=== PATIENT | female | born 1935 | race Caucasian/White ===

== ENCOUNTER 2019-03-27 21:40 | Emergency (ER) | payer MEDICARE, OTHER ==
[2019-03-27 22:07] VITALS: RESP 18; TEMP 97.1
[2019-03-27 22:34] LABS: Glucose,Whole Blood 165 mg/dL (75-99)
[2019-03-27 22:48] LABS: Calcium 9.7 mg/dL (8.4-10.2)
[2019-03-27 22:49] LABS: Albumin 4.2 g/dL (3.5-5.0); Total Bilirubin 0.7 mg/dL (0.2-1.3); Total Protein 7.3 g/dL (6.3-8.2)
[2019-03-27 23:34] LABS: Potassium 3.7 mmol/L (3.5-5.1)
[2019-03-27 23:39] LABS: Appearance,Urine Cloudy (Clear); Bacteria,Urine Few /hpf; Bilirubin,Urine Negative (Negative); Blood,Urine Moderate (Negative); Color,Urine Yellow; Glucose,Urine (UA) Negative (Negative); Hyaline Casts,Urine 4 /lpf (0-2); Ketones,Urine Negative (Negative); Leukocyte Esterase,Urine Large (Negative); Mucus,Urine Rare /hpf; Nitrite,Urine Negative (Negative); PH, Urine 6.5 (5.0-8.0); Protein,Urine Negative (Negative); RBC,Urine 25 /hpf (0-5); Specific Gravity,Urine 1.012 (1.001-1.035); Squamous Epithelial Cell,Urine 6 /hpf (0-4); Urobilinogen,Urine <2.0 mg/dL (<2.0)
[2019-03-27 23:45] LABS: Basophils % (A) 1 %; Eosinophils # (A) 0.3 k/uL (0-0.7); Eosinophils % (A) 4 %; HCT 35.2 % (34.0-46.0); HGB 12.2 gm/dL (11.4-16.0); Lymphocytes # (A) 1.3 k/uL (1.0-4.8); Lymphocytes % (A) 17 %; MCH 31.4 pg (25.0-35.0); MCHC 34.6 g/dL (31.0-37.0); MCV 90.8 fL (80.0-100.0); Monocytes # (A) 0.5 k/uL (0-1.0); Monocytes % (A) 6 %; Neutrophils # (A) 5.3 k/uL (1.3-7.7); Neutrophils % (A) 70 %; Platelet Count 211 k/uL (150-450); RBC 3.88 m/uL (3.80-5.40); RDW 13.2 % (11.5-15.5); WBC 7.6 k/uL (3.8-10.6)
[2019-03-27] MEDS ORDERED: cefTRIAXone IN SWFI 1,000 MG/10 ML SYRINGE IVP STA (23:56)
[2019-03-27] MEDS ORDERED: SODIUM CHLORIDE 0.9% 1,000 ML IV ONE (23:56)
[2019-03-28 00:08] VITALS: BP 103/61; PULSE 82
--- NOTE | 2019-03-28 00:13 | ED ---
General Adult HPI - General Chief complaint: Recheck/Abnormal Lab/Rx Stated complaint: Abn labs Time Seen by Provider: 03/27/19 22:20 Source: patient, EMS Mode of arrival: EMS Limitations: no limitations - History of Present Illness Initial comments: Tanja is a pleasant 83-year-old female is brought to the emergency department today for evaluation of possible overdose. Per the daughter the patient's medications come in blister packs per day today. They melissa on the calendar daily whether the patient has taken her medications. Patient has been home alone for the past 2 days and daughter believe she got confused and inadvertently looked at the February calendar which showed mid to darty been taken rather than March and "popping pills out of the package. Patient does not recall whether or not she took these pills. Patient denies any complaints. Daughter states she is not usually confused but does get confused occasionally which has a urinary infection. - Related Data Home Medications Medication Instructions Recorded Confirmed Atorvastatin [Lipitor] 40 mg PO DAILY 03/27/19 03/27/19 Furosemide [Lasix] 60 mg PO DAILY 03/27/19 03/27/19 Hydrochlorothiazide 12.5 mg PO DAILY 03/27/19 03/27/19 Losartan [Cozaar] 50 mg PO DAILY 03/27/19 03/27/19 Metoprolol Tartrate [Lopressor] 25 mg PO DAILY 03/27/19 03/27/19 Pioglitazone [Actos] 15 mg PO DAILY 03/27/19 03/27/19 Potassium Chloride ER [K-Dur 10] 10 meq PO Q48H 03/27/19 03/27/19 Previous Rx's Medication Instructions Recorded Nitrofurantoin Monohyd/M-Cryst 100 mg PO Q12HR #6 cap 03/28/19 [Macrobid] Allergies Allergy/AdvReac Type Severity Reaction Status Date / Time pseudoephedrine Allergy Rash/Hives Verified 03/28/19 00:10 [From Actifed] triprolidine [From Actifed] Allergy Rash/Hives Verified 03/28/19 00:10 codeine AdvReac Nausea & Verified 03/28/19 00:10 Vomiting propoxyphene [From Darvon] AdvReac Nausea & Verified 03/28/19 00:10 Vomiting Review of Systems ROS Statement: Those systems with pertinent positive or pertinent negative responses have been documented in the HPI. ROS Other: All systems not noted in ROS Statement are negative. Past Medical History Past Medical History: Diabetes Mellitus, Hearing Disorder / Deafness, Hyperlipidemia, Hypertension Additional Past Medical History / Comment(s): cataracts lense. hearing loss. bronchitis. History of Any Multi-Drug Resistant Organisms: None Reported Past Surgical History: No Surgical Hx Reported Past Psychological History: No Psychological Hx Reported Smoking Status: Never smoker Past Alcohol Use History: None Reported Past Drug Use History: None Reported General Exam - General Exam Comments Initial Comments: Physical Exam GENERAL: Patient is well-developed and well-nourished. Patient is nontoxic and well-hydrated and is in no distress. HENT: Normocephalic, Atraumatic. EYES: PERRL, EOMI PULMONARY: Unlabored respirations. No audible rales rhonchi or wheezing was noted. CARDIOVASCULAR: There is a regular rate and rhythm without any murmurs gallops or rubs. ABDOMEN: Soft and nontender with normal bowel sounds. SKIN: Skin is clear with no lesions or rashes and otherwise unremarkable. : Deferred NEUROLOGIC: Patient is alert and oriented x3. Moving all extremities spontaneously MUSCULOSKELETAL: Normal extremities with adequate strength and full range of motion. No lower extremity swelling or edema. No calf tenderness. PSYCHIATRIC: Normal psychiatric evaluation. Limitations: no limitations Course Vital Signs 03/27/19 03/28/19 21:44 00:07 Temperature 97.1 F L Pulse Rate 89 82 Respiratory 18 18 Rate Blood Pressure 135/53 103/61 O2 Sat by Pulse 98 98 Oximetry Medical Decision Making - Medical Decision Making She was seen and evaluated, patient's medications were reviewed, patient is on potassium as well as diuretics labs and urinalysis were obtained As with kidney function it's mildly increased BUN is also increases is likely related to dehydration patient's creatinine has been at this level before. She will be given 1 L IV fluid potassium is within normal limits Urinalysis confirms a urinary tract infection which is likely cause of patient's confusion, Rocephin was ordered here patient will be discharged home on Macrobid I did offer to admit the patient to the hospital for further evaluation as she has confusion and a urinary tract infection however patient is eager to go home and family is comfortable with this plan - Lab Data Result diagrams: 03/27/19 22:22 03/27/19 22:22 Lab Results 03/27/19 03/27/19 03/27/19 Range/Units 22:22 22:22 22:32 WBC 7.6 (3.8-10.6) k/uL RBC 3.88 (3.80-5.40) m/uL Hgb 12.2 (11.4-16.0) gm/dL Hct 35.2 (34.0-46.0) % MCV 90.8 (80.0-100.0) fL MCH 31.4 (25.0-35.0) pg MCHC 34.6 (31.0-37.0) g/dL RDW 13.2 (11.5-15.5) % Plt Count 211 (150-450) k/uL Neutrophils % 70 % Lymphocytes % 17 % Monocytes % 6 % Eosinophils % 4 % Basophils % 1 % Neutrophils # 5.3 (1.3-7.7) k/uL Lymphocytes # 1.3 (1.0-4.8) k/uL Monocytes # 0.5 (0-1.0) k/uL Eosinophils # 0.3 (0-0.7) k/uL Basophils # 0.0 (0-0.2) k/uL Sodium 141 (137-145) mmol/L Potassium 3.7 (3.5-5.1) mmol/L Chloride 98 (98-107) mmol/L Carbon Dioxide 35 H (22-30) mmol/L Anion Gap 8 mmol/L BUN 56 H (7-17) mg/dL Creatinine 1.40 H (0.52-1.04) mg/dL Est GFR (CKD-EPI)AfAm 40 (>60 ml/min/1.73 sqM) Est GFR (CKD-EPI)NonAf 35 (>60 ml/min/1.73 sqM) Glucose 173 H (74-99) mg/dL POC Glucose (mg/dL) 165 H (75-99) mg/dL POC Glu Program Coordinator [employer] Sonia Novoa Calcium 9.7 (8.4-10.2) mg/dL Total Bilirubin 0.7 (0.2-1.3) mg/dL AST 28 (14-36) U/L ALT 15 (9-52) U/L Alkaline Phosphatase 171 H (38-126) U/L Total Protein 7.3 (6.3-8.2) g/dL Albumin 4.2 (3.5-5.0) g/dL Urine Color Urine Appearance (Clear) Urine pH (5.0-8.0) Ur Specific [place] (1.001-1.035) Urine Protein (Negative) Urine Glucose (UA) (Negative) Urine Ketones (Negative) Urine Blood (Negative) Urine Nitrite (Negative) Urine Bilirubin (Negative) Urine Urobilinogen (<2.0) mg/dL Ur Leukocyte Esterase (Negative) Urine RBC (0-5) /hpf Urine WBC (0-5) /hpf Urine WBC Clumps (None) /hpf Ur Squamous Epith Cells (0-4) /hpf Urine Bacteria (None) /hpf Hyaline Casts (0-2) /lpf Urine Mucus (None) /hpf 03/27/19 Range/Units 23:00 WBC (3.8-10.6) k/uL RBC (3.80-5.40) m/uL Hgb (11.4-16.0) gm/dL Hct (34.0-46.0) % MCV (80.0-100.0) fL MCH (25.0-35.0) pg MCHC (31.0-37.0) g/dL RDW (11.5-15.5) % Plt Count (150-450) k/uL Neutrophils % % Lymphocytes % % Monocytes % % Eosinophils % % Basophils % % Neutrophils # (1.3-7.7) k/uL Lymphocytes # (1.0-4.8) k/uL Monocytes # (0-1.0) k/uL Eosinophils # (0-0.7) k/uL Basophils # (0-0.2) k/uL Sodium (137-145) mmol/L Potassium (3.5-5.1) mmol/L Chloride (98-107) mmol/L Carbon Dioxide (22-30) mmol/L Anion Gap mmol/L BUN (7-17) mg/dL Creatinine (0.52-1.04) mg/dL Est GFR (CKD-EPI)AfAm (>60 ml/min/1.73 sqM) Est GFR (CKD-EPI)NonAf (>60 ml/min/1.73 sqM) Glucose (74-99) mg/dL POC Glucose (mg/dL) (75-99) mg/dL POC Glu Program Coordinator [employer] ID Calcium (8.4-10.2) mg/dL Total Bilirubin (0.2-1.3) mg/dL AST (14-36) U/L ALT (9-52) U/L Alkaline Phosphatase (38-126) U/L Total Protein (6.3-8.2) g/dL Albumin (3.5-5.0) g/dL Urine Color Yellow Urine Appearance Cloudy H (Clear) Urine pH 6.5 (5.0-8.0) Ur Specific [place] 1.012 (1.001-1.035) Urine Protein Negative (Negative) Urine Glucose (UA) Negative (Negative) Urine Ketones Negative (Negative) Urine Blood Moderate H (Negative) Urine Nitrite Negative (Negative) Urine Bilirubin Negative (Negative) Urine Urobilinogen <2.0 (<2.0) mg/dL Ur Leukocyte Esterase Large H (Negative) Urine RBC 25 H (0-5) /hpf Urine WBC 169 H (0-5) /hpf Urine WBC Clumps Rare H (None) /hpf Ur Squamous Epith Cells 6 H (0-4) /hpf Urine Bacteria Few H (None) /hpf Hyaline Casts 4 H (0-2) /lpf Urine Mucus Rare H (None) /hpf Disposition Clinical Impression: UTI (urinary tract infection), Confusion, Accidental drug ingestion Disposition: HOME SELF-CARE Condition: Stable Prescriptions: Nitrofurantoin Monohyd/M-Cryst [Macrobid] 100 mg PO Q12HR #6 cap Is patient prescribed a controlled substance at d/c from ED?: No Referrals: Nonstaff,Physician [Primary Care Provider] - 1-2 days
== END 2019-03-28 01:43 | disposition home or self-care (01) ==
LOC: SUPCPDRO 21:40 → EC 21:40
DX: T50.901A Poisoning by unspecified drugs, medicaments and biological substances, accidental (unintentional), initial encounter (principal); N39.0 Urinary tract infection, site not specified; R41.0 Disorientation, unspecified; E11.9 Type 2 diabetes mellitus without complications; E78.5 Hyperlipidemia, unspecified; I10 Essential (primary) hypertension; Z79.84 Long term (current) use of oral hypoglycemic drugs; Z79.899 Other long term (current) drug therapy; Z88.8 Allergy status to other drugs, medicaments and biological substances; Z88.5 Allergy status to narcotic agent
CPT/HCPCS: 36415; 80053; 85025; 81001; 87086; 87077; 87186; 99283; 96374; 96361; J0696

== ENCOUNTER 2019-11-08 18:25 | Inpatient (IN) | payer MEDICARE ==
[2019-11-08] MEDS ORDERED: SODIUM CHLORIDE 0.9% 1,000 ML IV STA ×3 (19:00→21:50)
--- NOTE | 2019-11-08 19:07 | ED ---
General Adult HPI - General Chief complaint: Altered Mental Status Stated complaint: UTI Time Seen by Provider: 11/08/19 18:28 Source: patient, family, EMS, RN notes reviewed Mode of arrival: EMS Limitations: altered mental status, physical limitation - History of Present Illness Initial comments: Patient is a pleasant 83-year-old female presenting to the emergency Department with complaints of family concern for urinary tract infection. Patient states she feels fine and has no complaints. Daughter states she is worried about urinary tract infection as she has had several recently. Patient was tested within the past week and was reported as no infection. Patient has been more fatigued lately and decreased oral intake. There has been a little bit of confusion were patient was given a command, agree to it and then did not follow command. No fevers. Patient does admit to having some lower abdominal discomfort. Patient last bowel movement was today. - Related Data Home Medications Medication Instructions Recorded Confirmed Atorvastatin [Lipitor] 40 mg PO DAILY 03/27/19 11/08/19 Furosemide [Lasix] 60 mg PO DAILY 03/27/19 11/08/19 Hydrochlorothiazide 12.5 mg PO DAILY 03/27/19 11/08/19 Losartan [Cozaar] 50 mg PO DAILY 03/27/19 11/08/19 Metoprolol Tartrate [Lopressor] 25 mg PO DAILY 03/27/19 11/08/19 Pioglitazone [Actos] 15 mg PO DAILY 03/27/19 11/08/19 Potassium Chloride ER [K-Dur 10] 10 meq PO Q48H 03/27/19 11/08/19 Cholecalciferol [Vitamin D3 (25 1,000 unit PO DAILY 11/08/19 11/08/19 Mcg = 1000 Iu)] Cyanocobalamin (Vitamin B-12) 5,000 mcg PO DAILY 11/08/19 11/08/19 [Vitamin B-12] Hydrocortisone Cream 1 applic TOPICAL DAILY PRN 11/08/19 11/08/19 [Hydrocortisone 2.5% Cream] Allergies Allergy/AdvReac Type Severity Reaction Status Date / Time pseudoephedrine Allergy Rash/Hives Verified 11/08/19 19:40 [From Actifed] triprolidine [From Actifed] Allergy Rash/Hives Verified 11/08/19 19:40 codeine AdvReac Nausea & Verified 11/08/19 19:40 Vomiting propoxyphene [From Darvon] AdvReac Nausea & Verified 11/08/19 19:40 Vomiting Review of Systems ROS Statement: Those systems with pertinent positive or pertinent negative responses have been documented in the HPI. ROS Other: All systems not noted in ROS Statement are negative. Constitutional: Denies: fever Eyes: Denies: eye pain ENT: Denies: ear pain Respiratory: Denies: cough Cardiovascular: Denies: chest pain Endocrine: Reports: fatigue Gastrointestinal: Reports: abdominal pain. Denies: vomiting Genitourinary: Denies: dysuria Musculoskeletal: Denies: back pain Skin: Denies: rash Neurological: Reports: as per HPI. Denies: headache, weakness Past Medical History Past Medical History: Diabetes Mellitus, Hearing Disorder / Deafness, Hyperlipidemia, Hypertension Additional Past Medical History / Comment(s): cataracts lense. hearing loss. bronchitis. History of Any Multi-Drug Resistant Organisms: None Reported Past Surgical History: No Surgical Hx Reported Past Psychological History: No Psychological Hx Reported Smoking Status: Never smoker Past Alcohol Use History: None Reported Past Drug Use History: None Reported General Exam Limitations: altered mental status, physical limitation General appearance: alert, in no apparent distress Head exam: Present: normocephalic Eye exam: Present: normal appearance, PERRL ENT exam: Present: normal oropharynx Neck exam: Present: normal inspection Respiratory exam: Present: normal lung sounds bilaterally Cardiovascular Exam: Present: regular rate, irregular rhythm GI/Abdominal exam: Present: soft, tenderness (Mild to moderate tenderness lower abdomen), normal bowel sounds. Absent: distended, guarding, rebound, rigid, pulsatile mass Extremities exam: Present: normal inspection. Absent: pedal edema, calf tenderness Neurological exam: Present: alert. Absent: motor sensory deficit Expanded Neurological exam: Present: protecting the airway Patient oriented to: Present: person, place. Absent: time Speech: Present: fluid speech Motor strength exam: RUE: 5, LUE: 5, RLE: 5, LLE: 5 Eye Response: (4) open spontaneously Motor Response: (6) obeys commands Verbal Response: (4) confused conversation Psychiatric exam: Present: normal affect, normal mood Skin exam: Present: normal color Course Vital Signs 11/08/19 11/08/19 11/08/19 18:48 18:59 20:30 Temperature 99.4 F Pulse Rate 96 100 93 Respiratory 20 93 H 16 Rate Blood Pressure 136/50 111/74 111/48 O2 Sat by Pulse 96 95 93 L Oximetry EKG Findings - EKG Comments: EKG Findings:: A. fib with rate of 98. QRS 110. QT 294. QTC 375. Left axis. Normal QRS. No acute ST change. Medical Decision Making - Medical Decision Making Patient reevaluated and resting comfortably in bed. Patient has no tenderness right upper quadrant. Patient and family updated on results. No history of atrial fibrillation. Case was discussed in detail with Dr. britt, who will admit covering for Dr. Brown. Consults will be placed for cardiology and pulmonary. Ultrasound will be ordered. - Lab Data Result diagrams: 11/08/19 20:21 11/08/19 20:21 Lab Results 11/08/19 11/08/19 11/08/19 Range/Units 19:40 20:21 20:21 WBC 15.7 H (3.8-10.6) k/uL RBC 3.50 L (3.80-5.40) m/uL Hgb 10.7 L (11.4-16.0) gm/dL Hct 31.2 L (34.0-46.0) % MCV 89.1 (80.0-100.0) fL MCH 30.5 (25.0-35.0) pg MCHC 34.2 (31.0-37.0) g/dL RDW 14.7 (11.5-15.5) % Plt Count 187 (150-450) k/uL Neutrophils % 91 % Lymphocytes % 3 % Monocytes % 5 % Eosinophils % 0 % Basophils % 0 % Neutrophils # 14.3 H (1.3-7.7) k/uL Lymphocytes # 0.4 L (1.0-4.8) k/uL Monocytes # 0.8 (0-1.0) k/uL Eosinophils # 0.0 (0-0.7) k/uL Basophils # 0.0 (0-0.2) k/uL PT 10.2 (9.0-12.0) sec INR 1.0 (<1.2) APTT 24.3 (22.0-30.0) sec Sodium (137-145) mmol/L Potassium (3.5-5.1) mmol/L Chloride (98-107) mmol/L Carbon Dioxide (22-30) mmol/L Anion Gap mmol/L BUN (7-17) mg/dL Creatinine (0.52-1.04) mg/dL Est GFR (CKD-EPI)AfAm (>60 ml/min/1.73 sqM) Est GFR (CKD-EPI)NonAf (>60 ml/min/1.73 sqM) Glucose (74-99) mg/dL Calcium (8.4-10.2) mg/dL Total Bilirubin (0.2-1.3) mg/dL AST (14-36) U/L ALT (4-34) U/L Alkaline Phosphatase (38-126) U/L Total Protein (6.3-8.2) g/dL Albumin (3.5-5.0) g/dL Urine Color Yellow Urine Appearance Clear (Clear) Urine pH 5.0 (5.0-8.0) Ur Specific [place] 1.010 (1.001-1.035) Urine Protein Trace H (Negative) Urine Glucose (UA) Negative (Negative) Urine Ketones Negative (Negative) Urine Blood Negative (Negative) Urine Nitrite Negative (Negative) Urine Bilirubin Negative (Negative) Urine Urobilinogen <2.0 (<2.0) mg/dL Ur Leukocyte Esterase Negative (Negative) 11/08/19 Range/Units 20:21 WBC (3.8-10.6) k/uL RBC (3.80-5.40) m/uL Hgb (11.4-16.0) gm/dL Hct (34.0-46.0) % MCV (80.0-100.0) fL MCH (25.0-35.0) pg MCHC (31.0-37.0) g/dL RDW (11.5-15.5) % Plt Count (150-450) k/uL Neutrophils % % Lymphocytes % % Monocytes % % Eosinophils % % Basophils % % Neutrophils # (1.3-7.7) k/uL Lymphocytes # (1.0-4.8) k/uL Monocytes # (0-1.0) k/uL Eosinophils # (0-0.7) k/uL Basophils # (0-0.2) k/uL PT (9.0-12.0) sec INR (<1.2) APTT (22.0-30.0) sec Sodium 135 L (137-145) mmol/L Potassium 2.5 L* (3.5-5.1) mmol/L Chloride 93 L (98-107) mmol/L Carbon Dioxide 31 H (22-30) mmol/L Anion Gap 11 mmol/L BUN 75 H (7-17) mg/dL Creatinine 1.59 H (0.52-1.04) mg/dL Est GFR (CKD-EPI)AfAm 34 (>60 ml/min/1.73 sqM) Est GFR (CKD-EPI)NonAf 30 (>60 ml/min/1.73 sqM) Glucose 192 H (74-99) mg/dL Calcium 8.4 (8.4-10.2) mg/dL Total Bilirubin 1.4 H (0.2-1.3) mg/dL AST 82 H (14-36) U/L ALT 28 (4-34) U/L Alkaline Phosphatase 113 (38-126) U/L Total Protein 6.2 L (6.3-8.2) g/dL Albumin 3.2 L (3.5-5.0) g/dL Urine Color Urine Appearance (Clear) Urine pH (5.0-8.0) Ur Specific [place] (1.001-1.035) Urine Protein (Negative) Urine Glucose (UA) (Negative) Urine Ketones (Negative) Urine Blood (Negative) Urine Nitrite (Negative) Urine Bilirubin (Negative) Urine Urobilinogen (<2.0) mg/dL Ur Leukocyte Esterase (Negative) - Radiology Data Radiology results: report reviewed (Computed tomography scan of the brain shows atrophy. Old lacunar infarct. Computed tomography scan of the abdomen pelvis shows cholelithiasis with possible emphysematous cholecystitis. Some appearance of air in the uterine cavity. Patchy densities lung bases which is nonspecific.), image reviewed (Chest x-ray shows cardiomegaly and increased lung markings that could represent CHF or atypical pneumonia.) Disposition Clinical Impression: Dehydration, Hypokalemia, Atrial fibrillation Disposition: ADMITTED IP TO THIS [facility] Condition: Serious Is patient prescribed a controlled substance at d/c from ED?: No Referrals: Michelle Del Rio MD [Primary Care Provider] - 1-2 days Decision Time: 21:47
[2019-11-08 19:43] LABS: Appearance,Urine Clear (Clear); Bilirubin,Urine Negative (Negative); Blood,Urine Negative (Negative); Color,Urine Yellow; Glucose,Urine (UA) Negative (Negative); Ketones,Urine Negative (Negative); Leukocyte Esterase,Urine Negative (Negative); Nitrite,Urine Negative (Negative); Protein,Urine Trace (Negative); Urobilinogen,Urine <2.0 mg/dL (<2.0)
[2019-11-08 20:30] LABS: Basophils % (A) 0 %; Eosinophils % (A) 0 %; HCT 31.2 % (34.0-46.0); HGB 10.7 gm/dL (11.4-16.0); Lymphocytes # (A) 0.4 k/uL (1.0-4.8); Lymphocytes % (A) 3 %; MCH 30.5 pg (25.0-35.0); MCHC 34.2 g/dL (31.0-37.0); MCV 89.1 fL (80.0-100.0); Mean Platelet Volume 7.5; Monocytes # (A) 0.8 k/uL (0-1.0); Monocytes % (A) 5 %; Neutrophils # (A) 14.3 k/uL (1.3-7.7); Neutrophils % (A) 91 %; Platelet Count 187 k/uL (150-450); RDW 14.7 % (11.5-15.5); WBC 15.7 k/uL (3.8-10.6)
[2019-11-08 20:37] LABS: Partial Thromboplastin Time 24.3 sec (22.0-30.0); Prothrombin Time 10.2 sec (9.0-12.0)
[2019-11-08 20:42] LABS: Albumin 3.2 g/dL (3.5-5.0); Calcium 8.4 mg/dL (8.4-10.2); Total Bilirubin 1.4 mg/dL (0.2-1.3); Total Protein 6.2 g/dL (6.3-8.2)
[2019-11-08 20:43] LABS: Potassium 2.5 mmol/L (3.5-5.1)
[2019-11-08] MEDS ORDERED: POTASSIUM CHLORIDE 2 MEQ/ML 20 ML VIAL IVPB STA (20:46)
[2019-11-08] MEDS ORDERED: POTASSIUM CHLORIDE ER 20 MEQ TAB.ER PO STA (20:46)
--- NOTE | 2019-11-08 20:47 | XR ---
EXAMINATION TYPE: XR chest 2V DATE OF EXAM: 11/08/2019 COMPARISON: None INDICATION: Altered mental status TECHNIQUE: Frontal and lateral views of the chest are obtained. FINDINGS: The heart size is enlarged. The pulmonary vasculature is indistinct. There is diffuse increase infiltrate present bilaterally. This is nonspecific. Consider atypical pneu monia. IMPRESSION: 1. Diffuse increased lung markings. Consider atypical pneumonia. Atypical pulmonary edema could also be considered. 2. Cardiomegaly with prominent pulmonary vascular markings. Consider CHF.
[2019-11-08] MEDS ORDERED: POTASSIUM CHLORIDE 20 MEQ in WATER FOR INJECTION 1 100ML.BAG IVPB STA (20:48)
--- NOTE | 2019-11-08 21:23 | CT ---
EXAMINATION TYPE: CT brain wo con DATE OF EXAM: 11/08/2019 COMPARISON: None INDICATION: ams DLP: 1188.4 mGycm, Automated exposure control for dose reduction was used. CONTRAST: None CT of the brain is performed utilizing 3 mm thick sections through the posterior fossa and 3 mm thick sections through the remaining calvarium. Study is performed within 24 hours of arrival to the hosp ital. No abnormal hyperdensity is present to suggest an acute intracranial hemorrhage. No mass lesion is evident. No acute infarcts are evident. Patchy periventricular white matter hypodensity is present, likely on the basis of chronic white matter ischemic change. Subtle subcortical changes are within the parietal lobes. An old lacunar infarct is present in the left basal ganglion. Ventricles and sulci are common and for the patient age. Paranasal sinuses and mastoid air cells within the [id number] are clear. IMPRESSIONS: 1. Atrophy with periventricular white matter ischemic changes. 2. Old lacunar infarct left basal ganglion.
--- NOTE | 2019-11-08 21:32 | CT ---
EXAMINATION TYPE: CT abdomen pelvis wo con DATE OF EXAM: 11/08/2019 COMPARISON: None INDICATION: UTI DLP: 1518.4 mGycm, Automated exposure control for dose reduction was used. CONTRAST: 0 mL of Isovue 300. Study performed without Oral Contrast TECHNIQUE: Axial images were obtained from above the diaphragm to the pubic rami in the axial plane a t 5 mm thick sections. Reconstructed images are reviewed on the computer in the coronal plane. FINDINGS: Limited CT sections are obtained the lung bases. Patchy densities are within the lung bases. Cardiom egaly is present.. CT ABDOMEN: Liver: Normal Spleen: Normal Pancreas: Atrophic Adrenal glands: The adrenal glands are normal. Gallbladder: Gallstones are present. Some air within the gallbladder appears to be present. Kidneys: No masses are evident. No hydronephrosis is present. No cysts are present. Aorta: Vascular calcification is within the aorta. Inferior vena cava: Normal. CT PELVIS: Loops of bowel within the abdomen and pelvis are normal. Scattered diverticuli are within the col on. Appendix: Normal as visualized. Urinary bladder: Normal. Genitourinary structures: Appears to be air within the uterine cavity. Osseous structures: No suspicious lytic or sclerotic lesions. IMPRESSIONS: 1. Clinical consideration for emphysematous cholecystitis is recommended. Cholelithiasis is present. 2. Air appears to be within the uterine cavity. Correlate for recent instrumentation. 3. Patchy densities at the lung bases which are nonspecific. Infectious etiologies and solid areas co uld be considered.
[2019-11-08] MEDS: POTASSIUM CHLORIDE 10 MEQ in WATER FOR INJECTION 1 100ML.BAG IVPB SCH ×2 (21:38→23:12)
[2019-11-08] MEDS ORDERED: NALOXONE 0.4 MG/ML 1 ML VIAL IV PRN (21:52)
[2019-11-08] MEDS ORDERED: AZITHROMYCIN 500 MG in SODIUM CHLORIDE 0.9% 250 ML IVPB STA (21:58)
[2019-11-08] MEDS ORDERED: PNEUMONIA PROTOCOL UTILIZED 1 EACH MISC PO PRN (21:58)
--- NOTE | 2019-11-08 22:53 | US ---
EXAMINATION TYPE: US gallbladder DATE OF EXAM: 11/08/2019 COMPARISON: NONE CLINICAL HISTORY: Evaluate for infection or air in the gallbladder. Abdominal pain, abnormal GB on re cent CT exam EXAM MEASUREMENTS: Liver Length: 14.9 cm Gallbladder Wall: 0.3 cm CBD: 0.4 cm Right Kidney: 10.9 x 4.3 x 5.1 cm Technical limitations, patient uncooperative and large amount of overlying bowel content Pancreas: Tail obscured by overlying bowel gas Liver: appears wnl as visualized Gallbladder: 2 stones near neck, large amount of shadowing noted anterior wall ?? air vs other etiol ogy Evidence for sonographic Suazo's sign: yes CBD: appears wnl as visualized Right Kidney: no evidence of hydronephrosis possible free fluid noted adjacent to liver IMPRESSION: There is extensive shadowing in the gallbladder related to air in the gallbladder wall. This is evide nt on the CT scan today. There are gallstones at the gallbladder neck. Small amount of free fluid adj acent to the liver unchanged compared to CT scan today. Gangrenous gallbladder is possible.
[2019-11-08] MEDS ORDERED: LEVOFLOXACIN 750MG-D5W PMX 750 MG in DEXTROSE/WATER 1 150ML.BAG IVPB STA (23:22)
[2019-11-08 23:30] LABS: C Reactive Protein 394.8 mg/L (<10.0)
--- NOTE | 2019-11-09 00:25 | P.HPIM ---
History of Present Illness H&P Date: 11/08/19 The patient is an 83-year-old female with a PMH of type II DM, hypertension, and hyperlipidemia who was brought into the ED by her daughter due to not feeling well over the past few days. The patient was a very poor historian and thereby history obtained from the daughter at the bedside. The daughter (POA) reports that over the past 4-5 days, the patient has been increasingly weak, confused, and has had a poor appetite. The patient also endorsed a suprapubic and right upper quadrant abdominal pain, unable to quantify, nonradiating, and unable to state any alleviating or exacerbating features. The daughter further endorsed a cough productive of whitish phlegm. The patient denied experiencing chest pain, shortness of breath, nausea, vomiting, diarrhea, or headaches. The patient lives by herself though is often visited by her daughter who brings her food and takes care of her house. The patient underwent an extensive evaluation in the emergency room with CT abdomen and pelvis showing concerns for cholecystitis with patchy densities in the lung bases. Brain CT revealed a atrophy with periventricular white matter ischemic changes with no acute changes noted. Chest x-ray revealed diffuse increased lung markings suspicious for atypical pneumonia along with cardiomegaly and prominent pulmonary vascular markings suspicious for CHF. Gallbladder ultrasound revealed extensive air in the gallbladder wall with the possibility of gangrenous gallbladder. EKG revealed A. fib at 98 bpm with no acute ST/T-wave changes noted. Laboratory evaluation revealed a WBC count of 15.7, hemoglobin 10.7, d-dimer 3.99, sodium 135, potassium 2.5, CO2 31, BUN 75, creatinine 1.59, lactic acid 1.3, with C-reactive protein 394. Review of Systems Pertinent positives and negatives as discussed in HPI, a complete review of systems was performed and all other systems are negative. Past Medical History Past Medical History: Diabetes Mellitus, Hearing Disorder / Deafness, Hyperlipidemia, Hypertension Additional Past Medical History / Comment(s): cataracts lense. hearing loss. bronchitis. History of Any Multi-Drug Resistant Organisms: None Reported Past Surgical History: No Surgical Hx Reported Past Psychological History: No Psychological Hx Reported Smoking Status: Never smoker Past Alcohol Use History: None Reported Past Drug Use History: None Reported Medications and Allergies Home Medications Medication Instructions Recorded Confirmed Type Atorvastatin [Lipitor] 40 mg PO DAILY 03/27/19 11/08/19 History Furosemide [Lasix] 60 mg PO DAILY 03/27/19 11/08/19 History Hydrochlorothiazide 12.5 mg PO DAILY 03/27/19 11/08/19 History Losartan [Cozaar] 50 mg PO DAILY 03/27/19 11/08/19 History Metoprolol Tartrate [Lopressor] 25 mg PO DAILY 03/27/19 11/08/19 History Pioglitazone [Actos] 15 mg PO DAILY 03/27/19 11/08/19 History Potassium Chloride ER [K-Dur 10] 10 meq PO Q48H 03/27/19 11/08/19 History Cholecalciferol [Vitamin D3 (25 1,000 unit PO DAILY 11/08/19 11/08/19 History Mcg = 1000 Iu)] Cyanocobalamin (Vitamin B-12) 5,000 mcg PO DAILY 11/08/19 11/08/19 History [Vitamin B-12] Hydrocortisone Cream 1 applic TOPICAL DAILY PRN 11/08/19 11/08/19 History [Hydrocortisone 2.5% Cream] Allergies Allergy/AdvReac Type Severity Reaction Status Date / Time pseudoephedrine Allergy Rash/Hives Verified 11/08/19 19:40 [From Actifed] triprolidine [From Actifed] Allergy Rash/Hives Verified 11/08/19 19:40 codeine AdvReac Nausea & Verified 11/08/19 19:40 Vomiting propoxyphene [From Darvon] AdvReac Nausea & Verified 11/08/19 19:40 Vomiting Physical Exam Vitals: Vital Signs Temp Pulse Resp BP Pulse Ox 11/08/19 23:08 96 16 101/53 92 L 11/08/19 21:00 81 16 118/52 92 L 11/08/19 20:30 93 16 111/48 93 L 11/08/19 18:59 100 93 H 111/74 95 11/08/19 18:48 99.4 F 96 20 136/50 96 Intake and Output 11/08/19 11/08/19 11/09/19 14:59 22:59 06:59 Output Total 500 Balance -500 Output: Urine 500 Straight 500 Other: Weight 103.419 kg General: Elderly F, no distress, appears at stated age, obese Derm: no unusual rashes/lesions no unusual ecchymoses, warm, dry Head: atraumatic, normocephalic, symmetric Eyes: EOMI, no lid lag, anicteric sclera, pupils equal round reactive to light ENT: Nose and ears atraumatic, no thrush, no pharyngeal erythema Neck: No thyromegaly, no cervical lymphadenopathy, trachea midline, supple Mouth: no lip lesion, mucus membranes dry Cardiovascular: Irregularly irregular, no murmur, positive posterior tibial pulse bilateral, no edema, capillary refill less than 2 seconds Lungs: Mild bilateral coarse breath sounds with bibasilar rales Abdominal: soft, diffuse tenderness worse at RUQ and suprapubic region with guarding, no appreciable organomegaly Ext: no gross muscle atrophy, muscle strength 4 out of 5 in all 4 extremities grossly, no contractures Neuro: CN II-XII intact, no focal neuro deficits Psych: Alert, oriented to person and place, not oriented to time Results CBC & Chem 7: 11/08/19 20:21 11/08/19 20:21 Labs: Abnormal Lab Results - Last 24 Hours (Table) 11/08/19 11/08/19 11/08/19 Range/Units 19:40 20:21 20:21 WBC 15.7 H (3.8-10.6) k/uL RBC 3.50 L (3.80-5.40) m/uL Hgb 10.7 L (11.4-16.0) gm/dL Hct 31.2 L (34.0-46.0) % Neutrophils # 14.3 H (1.3-7.7) k/uL Lymphocytes # 0.4 L (1.0-4.8) k/uL D-Dimer (<0.60) mg/L FEU Sodium 135 L (137-145) mmol/L Potassium 2.5 L* (3.5-5.1) mmol/L Chloride 93 L (98-107) mmol/L Carbon Dioxide 31 H (22-30) mmol/L BUN 75 H (7-17) mg/dL Creatinine 1.59 H (0.52-1.04) mg/dL Glucose 192 H (74-99) mg/dL Total Bilirubin 1.4 H (0.2-1.3) mg/dL AST 82 H (14-36) U/L Lactate Dehydrogenase (313-618) U/L Total Protein 6.2 L (6.3-8.2) g/dL Albumin 3.2 L (3.5-5.0) g/dL Urine Protein Trace H (Negative) 11/08/19 11/08/19 Range/Units 20:21 20:21 WBC (3.8-10.6) k/uL RBC (3.80-5.40) m/uL Hgb (11.4-16.0) gm/dL Hct (34.0-46.0) % Neutrophils # (1.3-7.7) k/uL Lymphocytes # (1.0-4.8) k/uL D-Dimer 3.99 H (<0.60) mg/L FEU Sodium (137-145) mmol/L Potassium (3.5-5.1) mmol/L Chloride (98-107) mmol/L Carbon Dioxide (22-30) mmol/L BUN (7-17) mg/dL Creatinine (0.52-1.04) mg/dL Glucose (74-99) mg/dL Total Bilirubin (0.2-1.3) mg/dL AST (14-36) U/L Lactate Dehydrogenase 747 H (313-618) U/L Total Protein (6.3-8.2) g/dL Albumin (3.5-5.0) g/dL Urine Protein (Negative) Assessment and Plan Plan: RUQ abdominal pain w/ suspected cholecystitis -C/w Metronidazole and Levaquin for now -Consult Surgery -NPO for now -Pain control -Follow up blood cultures Abnormal CXR with cough, elevated CRP and D-Dimer -Inflammatory markers possibly elevated due to suspected cholecystitis -Patient's daughter refused Covid testing at this time despite several conversations with ED physician and securities underwriter -C/w droplet isolation at this time -Pulm consulted -Follow-up pro-calcitonin -Continue with Levaquin for now Newly diagnosed A. fib -Order echocardiogram -Cardiology consult -Cardiac monitoring -Hold off on AC at this time Altered mental status, likely metabolic encephalopathy in setting of active infection -Continue with above management including antibiotics ISAAC on CKD, prerenal -Continue with IV hydration for now -Monitor BMP Hypokalemia -Replace and monitor Type 2 DM -SHEREE with FS Chronic conditions: HTN, HLD -Hold home HCTZ and Losartan due to ISAAC. C/w Lopressor DVT prophylaxis -Heparin subq The patient is admitted with an anticipated greater than 2 midnight stay for evaluation of abdominal pain CODE STATUS: Full Code Discussed with: Patient, daughter Anticipated discharge date: 3-[address]: Home A total of 45 minutes was spent on the care of this complex patient more than 50% of the time was spent in counseling and care coordination.
[2019-11-09] MEDS ORDERED: POTASSIUM CHLORIDE ER 20 MEQ TAB.ER PO STA (00:28)
[2019-11-09] MEDS: metroNIDAZOLE-NS PMX 500 MG in SALINE 1 100ML.BAG IVPB SCH ×4 (01:56→16:47)
[2019-11-09 02:17] LABS: Ferritin 244.5 ng/mL (10.0-291.0)
[2019-11-09 04:10] LABS: Basophils % (A) 0 %; Eosinophils # (A) 0.1 k/uL (0-0.7); Eosinophils % (A) 1 %; HCT 29.3 % (34.0-46.0); HGB 9.7 gm/dL (11.4-16.0); Lymphocytes # (A) 0.5 k/uL (1.0-4.8); Lymphocytes % (A) 4 %; MCH 29.4 pg (25.0-35.0); MCHC 33.3 g/dL (31.0-37.0); MCV 88.4 fL (80.0-100.0); Mean Platelet Volume 7.6; Monocytes # (A) 1.1 k/uL (0-1.0); Monocytes % (A) 8 %; Neutrophils # (A) 12.3 k/uL (1.3-7.7); Neutrophils % (A) 87 %; Platelet Count 190 k/uL (150-450); RBC 3.31 m/uL (3.80-5.40); RDW 14.5 % (11.5-15.5); WBC 14.2 k/uL (3.8-10.6)
[2019-11-09 04:19] LABS: Albumin 2.9 g/dL (3.5-5.0); Calcium 8.2 mg/dL (8.4-10.2); Magnesium 1.9 mg/dL (1.6-2.3); Potassium 2.8 mmol/L (3.5-5.1); Total Bilirubin 1.1 mg/dL (0.2-1.3); Total Protein 5.7 g/dL (6.3-8.2)
[2019-11-09] MEDS ORDERED: Potassium Replacement Protocol 1 EACH MISC MISCELLANE PRN (05:35)
[2019-11-09] MEDS ORDERED: MORPHINE SULFATE 2 MG/ML SYRINGE IVP STA (05:38)
[2019-11-09] MEDS: POTASSIUM CHLORIDE ER 20 MEQ TAB.ER PO SCH ×4 (05:45→16:48)
[2019-11-09 06:41] LABS: Glucose,Whole Blood 150 mg/dL (75-99)
[2019-11-09] MEDS: INSULIN ASPART (NovoLOG) 100 UNIT/ML VIAL SQ SCH ×3 (07:00→16:48)
--- NOTE | 2019-11-09 08:18 | XR ---
EXAMINATION TYPE: XR chest 1V DATE OF EXAM: 11/09/2019 COMPARISON: 11/08/2019 INDICATION: Pneumonia TECHNIQUE: Single frontal view of the chest is obtained. FINDINGS: The heart size is moderately prominent. The pulmonary vasculature is normal. Minimal infiltrate is along the bases. Previous vascular prominence and infiltrates have significantl y improved. Catheter on the right has its tip near the midline IMPRESSION: 1. Moderate cardiomegaly. 2. Resolving volume overload or CHF. Continued follow-up is recommended.
[2019-11-09] MEDS ORDERED: DILTIAZEM DRIP BOLUS FROM BAG 1 MG SOLN IV ONE (10:20)
[2019-11-09] MEDS ORDERED: FUROSEMIDE 10 MG/ML 4 ML VIAL IV STA (10:21)
[2019-11-09] MEDS: PANTOPRAZOLE 40 MG/10 ML VIAL IV SCH (10:24)
[2019-11-09 10:27] LABS: Glucose,Whole Blood 168 mg/dL (75-99)
[2019-11-09] MEDS: ATORVASTATIN 40 MG TAB PO SCH (10:28)
[2019-11-09] MEDS: METOPROLOL TARTRATE 25 MG TAB PO SCH (10:28)
[2019-11-09] MEDS ORDERED: DILTIAZEM 125 MG in SODIUM CHLORIDE 0.9% 100 ML IV SCH (10:30)
--- NOTE | 2019-11-09 12:27 | CONS ---
CONSULTATION CHIEF COMPLAINT: Fatigue, tiredness, not feeling well and confusion. Tanja is an 83-year-old lady with history of hypertension, [id number] diabetes and dyslipidemia who presented to hospital with symptoms of not feeling well, fatigued, tired, generalized body ache, and on her presentation was found to be in atrial fibrillation with rapid ventricular rate. She has persistent atrial fibrillation. She underwent CT scan of the abdomen and pelvis which also revealed gangrenous gallbladder. Her white cell count is elevated at 15. She had severe hypokalemia that is currently being supplemented and also has renal insufficiency with a creatinine of 1.5 on admission, which is getting better. Patient also has had shortness of breath and leg edema for the last several weeks and a chest x-ray shows pulmonary congestion. Patient has multiple and complex medical problems including acute onset congestive heart failure of unclear LV function, new onset atrial fibrillation and gangrenous cholecystitis. The patient will undergo cholecystectomy and then we will address the issues of atrial fibrillation. She needs to be anticoagulated, needs to undergo an echocardiogram to assess LV function and we will treat her with IV heparin when okay with the surgeon. She also has congestive heart failure for which I am going to give IV Lasix. Her BNP is elevated at 4700. PAST MEDICAL HISTORY: Significant for hypertension, diabetes, dyslipidemia. MEDICATIONS: Include K-Dur 10 mEq every 48 hours, Cozaar, hydrochlorothiazide, Actos, Lopressor, Lasix, Lipitor. Patient is allergic to ACTIFED, CODEINE, and DARVON. FAMILY HISTORY: Negative for premature coronary artery disease. SOCIAL HISTORY: Negative for smoking, EtOH abuse, or drug abuse. REVIEW OF SYSTEMS: HEENT: Unremarkable. CARDIAC: As described above. RESPIRATORY: As described above. GI: As described above. GENITOURINARY: Negative. ALLERGY/IMMUNOLOGY: Negative. SKIN: Negative. MUSCULOSKELETAL: Significant for arthritis. PSYCHOSOCIAL: Negative. ENDOCRINE: Negative. CONSTITUTIONAL: Significant for not feeling well, confusion, fatigue. On exam, heart rate is 110 beats per minute. Blood pressure is 146/50, respiratory rate is 18. Chest exam reveals occasional crackles bilaterally. Heart exam reveals first and second heart sounds. Systolic murmur at the apex. Regular rhythm. Abdomen is soft. Exam of extremities reveals bilateral pitting edema. LABS: Show that the BNP is elevated. Potassium is low. BUN is 5, creatinine is 1.3. White cell count is elevated. Hemoglobin is low. Platelet count is low. ASSESSMENT: 1. Acute gangrenous cholecystitis. 2. Persistent atrial fibrillation with new onset poorly controlled ventricular rate. 3. Acute onset congestive heart failure. 4. Acute onset renal failure. PLAN: I will treat the patient with intravenous Cardizem for rate control, IV Lasix for heart failure. Obtain a 2D echo. She is at high risk for perioperative cardiac events. Both she and her daughter understand this. You can proceed with the cholecystectomy and we will deal with the consequence as they come. Will obtain LV function and will optimize therapies once the cholecystectomy is done. Patient needs to be anticoagulated, but this will wait until the cholecystectomy. MMODL / IJN: [id number] /
--- NOTE | 2019-11-09 12:42 | P.CNPUL ---
History of Present Illness Consult date: 11/09/19 Requesting physician: Antonino Guadarrama Reason for consult: other Chief complaint: Acute abdominal pain History of present illness: 83-year-old white female patient with past medical history of mild intermittent bronchial asthma, history of nonspecific pulmonary nodules for which she follows with Dr. Ambrocio in the pulmonary clinic, and there were monitored for a long period of time since July 2015, have not shown significant change in size and patient had been asymptomatic and the nodules were nonspecific. Medical history includes benign essential hypertension, hyperlipidemia, and diabetes mellitus. Patient was brought into the emergency department by her daughter on 11/08/2019 in an ambulance for evaluation of mental status, concern for urinary tract infection, not feeling well, weak, fatigued and decreased oral intake. Denied any fevers, patient is having abdominal discomfort and tenderness in the right upper quadrant and lower abdominal discomfort. Her last bowel movement was the day before presentation. CT of the abdomen and pelvis without contrast showed patchy densities within the lung bases, cardiomegaly, gallstones present in the gallbladder with some air within the gallbladder, consideration for emphysematous cholecystitis. EKG showed atrial fibrillation with mildly elevated ventricular rate for which patient was started on Cardizem drip. Ultrasound of the gallbladder showed extensive shadowing in the gallbladder, gallstones in the gallbladder neck, and small amount of free fluid adjacent to the liver, with possibility of a gangrenous gallbladder. Patient is being kept nothing by mouth, surgical consultation was requested and patient is being considered for laparoscopic cholecystectomy today. No cough or congestion, no fever or chills, room air pulse ox 97%, hemodynamically she is stable. Her labs showed white blood cell count of 15.7, hemoglobin is 10.7, d-dimer is 3.9, sodium is 135, potassium is 2.5, chloride is 93, CO2 31, BUN is 75, creatinine is 1.59, plasma lactic acid is 1.3, total bilirubin is 1.4, ferritin is 244, AST is 82, ALT is 28, alk phos is 113, LDH is 747, CRP is 394, proBNP is 4700, broke acetone is elevated at 1.27 and patient has been started on empiric antibiotics, in the form of Levaquin, and Flagyl, patient was given IV fluid bolus, and IV hydration overnight, and on today's labs her renal profile is slightly improved, however she still hypokalemic, which is being replaced per protocol. Urinalysis was negative for any sign of infection. She was started on IV Lasix by cardiology, for elevated proBNP and today's chest x-ray showing vascular prominence, evidence of fluid volume overload. Review of Systems All systems: negative Constitutional: Reports fatigue, Reports malaise, Reports weakness, Denies chills, Denies fever Eyes: denies blurred vision, denies pain Ears, nose, mouth and throat: Denies headache, Denies sore throat Cardiovascular: Denies chest pain, Denies shortness of breath Respiratory: Denies cough Gastrointestinal: Reports abdominal pain, Reports loss of appetite, Denies diarrhea, Denies nausea, Denies vomiting Genitourinary: Denies dysuria, Denies hematuria Musculoskeletal: Denies myalgias Integumentary: Denies pruritus, Denies rash Neurological: Denies numbness, Denies weakness Psychiatric: Denies anxiety, Denies depression Endocrine: Denies fatigue, Denies weight change Past Medical History Past Medical History: Diabetes Mellitus, Hearing Disorder / Deafness, Hyperlipidemia, Hypertension Additional Past Medical History / Comment(s): cataracts lense. hearing loss. bronchitis. History of Any Multi-Drug Resistant Organisms: None Reported Past Surgical History: No Surgical Hx Reported Past Psychological History: No Psychological Hx Reported Smoking Status: Never smoker Past Alcohol Use History: None Reported Past Drug Use History: None Reported Medications and Allergies Home Medications Medication Instructions Recorded Confirmed Type Atorvastatin [Lipitor] 40 mg PO DAILY 03/27/19 11/08/19 History Furosemide [Lasix] 60 mg PO DAILY 03/27/19 11/08/19 History Hydrochlorothiazide 12.5 mg PO DAILY 03/27/19 11/08/19 History Losartan [Cozaar] 50 mg PO DAILY 03/27/19 11/08/19 History Metoprolol Tartrate [Lopressor] 25 mg PO DAILY 03/27/19 11/08/19 History Pioglitazone [Actos] 15 mg PO DAILY 03/27/19 11/08/19 History Potassium Chloride ER [K-Dur 10] 10 meq PO Q48H 03/27/19 11/08/19 History Cholecalciferol [Vitamin D3 (25 1,000 unit PO DAILY 11/08/19 11/08/19 History Mcg = 1000 Iu)] Cyanocobalamin (Vitamin B-12) 5,000 mcg PO DAILY 11/08/19 11/08/19 History [Vitamin B-12] Hydrocortisone Cream 1 applic TOPICAL DAILY PRN 11/08/19 11/08/19 History [Hydrocortisone 2.5% Cream] Allergies Allergy/AdvReac Type Severity Reaction Status Date / Time pseudoephedrine Allergy Rash/Hives Verified 11/08/19 19:40 [From Actifed] triprolidine [From Actifed] Allergy Rash/Hives Verified 11/08/19 19:40 codeine AdvReac Nausea & Verified 11/08/19 19:40 Vomiting propoxyphene [From Darvon] AdvReac Nausea & Verified 11/08/19 19:40 Vomiting Physical Exam Vitals: Vital Signs Temp Pulse Pulse Resp BP BP Pulse Ox 11/09/19 11:26 88 114/58 94 L 11/09/19 09:37 115 H 126/51 96 11/09/19 04:00 97.9 F 98 17 114/53 96 11/09/19 00:00 98.9 F 96 18 107/59 96 11/08/19 23:32 90 16 99/45 97 11/08/19 23:08 96 16 101/53 92 L 11/08/19 21:00 81 16 118/52 92 L 11/08/19 20:30 93 16 111/48 93 L 11/08/19 18:59 100 93 H 111/74 95 11/08/19 18:48 99.4 F 96 20 136/50 96 Intake and Output 11/08/19 11/09/19 11/09/19 22:59 06:59 14:59 Intake Total 1100 Output Total 501 Balance 599 Intake: Intake, IV Titration 1100 Amount Sodium Chloride 0.9% 1, 1000 000 ml @ 999 mls/hr IV . Q1H1M STA Rx#:[id number] cefTRIAXone 1 gm In 100 Sodium Chloride 0.9% 50 ml @ 100 mls/hr IVPB Q24H [facility] Rx#:[id number] Output: Urine 500 Straight 500 Stool 1 Other: # Voids 1 Weight 103.419 kg GENERAL EXAM: Alert, very pleasant, 83-year-old white female, on room air, with a pulse ox of 97%, seen in the emergency department resting on the gurney, oriented 3, does not appear to be in any acute distress, however physical exam and abdominal palpation does elicit significant right upper quadrant tenderness HEAD: Normocephalic/atraumatic. EYES: Normal reaction of pupils, equal size. Conjunctiva pink, sclera white. NOSE: Clear with pink turbinates. THROAT: No erythema or exudates. NECK: No masses, no JVD, no thyroid enlargement, no adenopathy. CHEST: No chest wall deformity. Symmetrical expansion. LUNGS: Equal air entry with no crackles, wheeze, rhonchi or dullness. CVS: Irregular rate and rhythm, normal S1 and S2, no gallops, no murmurs, no rubs ABDOMEN: Soft, abdominal tenderness in the right upper quadrant. No hepatosplenomegaly, normal bowel sounds, no guarding or rigidity. EXTREMITIES: No clubbing, no edema, no cyanosis, 2+ pulses and upper and lower extremities. MUSCULOSKELETAL: Muscle strength and tone normal. SPINE: No scoliosis or deformity SKIN: No rashes CENTRAL NERVOUS SYSTEM: Alert and oriented -3. No focal deficits, tone is normal in all 4 extremities. PSYCHIATRIC: Alert and oriented -3. Appropriate affect. Intact judgment and insight. Results - Laboratory Findings CBC and BMP: 11/09/19 03:58 11/09/19 03:58 PT/INR, D-dimer PT 10.2 sec (9.0-12.0) 11/08/19 20:21 INR 1.0 (<1.2) 11/08/19 20:21 D-Dimer 3.99 mg/L FEU (<0.60) H 11/08/19 20:21 Abnormal lab findings: Abnormal Labs 11/08/19 11/08/19 11/08/19 19:40 20:21 20:21 WBC 15.7 H RBC 3.50 L Hgb 10.7 L Hct 31.2 L Neutrophils # 14.3 H Lymphocytes # 0.4 L Monocytes # D-Dimer Sodium 135 L Potassium 2.5 L* Chloride 93 L Carbon Dioxide 31 H BUN 75 H Creatinine 1.59 H Glucose 192 H POC Glucose (mg/dL) Calcium Total Bilirubin 1.4 H AST 82 H Lactate Dehydrogenase C-Reactive Protein Total Protein 6.2 L Albumin 3.2 L Procalcitonin Urine Protein Trace H 11/08/19 11/08/19 11/08/19 20:21 20:21 20:21 WBC RBC Hgb Hct Neutrophils # Lymphocytes # Monocytes # D-Dimer 3.99 H Sodium Potassium Chloride Carbon Dioxide BUN Creatinine Glucose POC Glucose (mg/dL) Calcium Total Bilirubin AST Lactate Dehydrogenase 747 H C-Reactive Protein 394.8 H Total Protein Albumin Procalcitonin 1.27 H Urine Protein 11/09/19 11/09/19 11/09/19 03:58 03:58 06:39 WBC 14.2 H RBC 3.31 L Hgb 9.7 L Hct 29.3 L Neutrophils # 12.3 H Lymphocytes # 0.5 L Monocytes # 1.1 H D-Dimer Sodium Potassium 2.8 L Chloride 96 L Carbon Dioxide 33 H BUN 74 H Creatinine 1.39 H Glucose 129 H POC Glucose (mg/dL) 150 H Calcium 8.2 L Total Bilirubin AST 73 H Lactate Dehydrogenase C-Reactive Protein Total Protein 5.7 L Albumin 2.9 L Procalcitonin Urine Protein 11/09/19 10:14 WBC RBC Hgb Hct Neutrophils # Lymphocytes # Monocytes # D-Dimer Sodium Potassium Chloride Carbon Dioxide BUN Creatinine Glucose POC Glucose (mg/dL) 168 H Calcium Total Bilirubin AST Lactate Dehydrogenase C-Reactive Protein Total Protein Albumin Procalcitonin Urine Protein - Diagnostic Findings Chest x-ray: report reviewed, image reviewed CT scan - chest: report reviewed Additional studies: CT of the abdomen and pelvis, and brain CT, and gallbladder ultrasound results have been reviewed Assessment and Plan Plan: Assessment: #1. Acute abdominal pain, related to possibility of gangrenous cholecystitis, ultrasound of the abdomen revealed gallstones at the gallbladder neck, air in the gallbladder wall. Awaiting laparoscopic cholecystectomy this afternoon #2. Weakness, fatigue, dehydration related to the above #3. Acute kidney injury related to ATN, slightly improved with IV hydration #4. Hypokalemia, serum potassium is being replaced per protocol, likely related to dehydration, poor oral intake and diuretics #5. New onset atrial fibrillation with RVR #6. Vascular prominence and infiltrates seen on the chest x-ray, possibility of acute exacerbation of CHF with unknown EF #7. History of mild intermittent bronchial asthma, stable #8. History of multiple nonspecific pulmonary nodules have been under surveillance since July [address] Ambrocio, have not shown this can increase the patient has been asymptomatic #9. Hypertension #10. Hyperlipidemia #11. Diabetes mellitus type II #12. History of difficulty hearing Plan: Chest x-ray has been reviewed showing stability of vascular congestion, CHF, fluid volume overload patient has been started on IV Lasix, cardiology is following. Remains in A. fib, rate is better controlled, denies any worsening dyspnea, her asthma is stable at this time, she is on room air, she's been started on antibiotics, surgical services evaluated the patient and patient is scheduled for laparoscopic cholecystectomy this afternoon. Her daughter is refusing her mother to be tested for COVID 19, stating she does not think her mother is infected, and stating she has a right to do that due to her constitutional rights. We'll continue to follow with the patient in the postoperative period. I performed a history & physical examination of the patient and discussed their management with my nurse practitioner, Saumya Juan. I reviewed the nurse practitioner's note and agree with the documented findings and plan of care. Lung sounds are positive for diminished breath sounds. The findings and the impression was discussed with the patient. I attest to the documentation by the nurse practitioner. Time with Patient: Greater than 30
--- NOTE | 2019-11-09 12:46 | P.GSCN ---
History of Present Illness Consult date: 11/09/19 Reason for Consult: Evaluate for gangrenous gallbladder Requesting physician: Cosme Echavarria History of present illness: CHIEF COMPLAINT: Gangrenous gallbladder HISTORY OF PRESENT ILLNESS: 83-year-old female who presented to the emergency room with her daughter with a chief complaint of a possible urinary tract infection. Patient underwent a computed tomography scan revealing a possible gangrenous gallbladder. Hence general surgery was consulted for further evaluation. The patient was found to have new onset atrial fibrillation. She has been started on a Cardizem drip. Patient also started on IV Lasix every 12 hours. PAST MEDICAL HISTORY: See list. PAST SURGICAL HISTORY: See list. SOCIAL HISTORY: No illicit drug use. REVIEW OF SYSTEMS: CONSTITUTIONAL: Denies fever or chills. HEENT: Denies blurred vision, vision changes, or eye pain. Denies hemoptysis CARDIOVASCULAR: Denies chest pain or pressure. RESPIRATORY: No shortness of breath. GASTROINTESTINAL: Refer to HPI for pertinent findings HEMATOLOGIC: Denies bleeding disorders. GENITOURINARY: Denies any blood in urine. SKIN: Denies pruitis. Denies rash. PHYSICAL EXAM: VITAL SIGNS: Reviewed. GENERAL: Well-developed in no acute distress. HEENT: No sclera icterus. Extraocular movements grossly intact. Moist buccal mucosa. Head is atraumatic, normocephalic. ABDOMEN: Soft. Nondistended. Right upper quadrant tenderness with palpation. NEUROLOGIC: Alert and oriented x 2. LABORATORY DATA: WBC 14.2. Hemoglobin 9.7. Platelet count 190. Sodium 140. Potassium 2.8. BUN 74. Creatinine 1.39. Bilirubin 1.1. AST 73. ALT 26. IMAGING: CT abdomen and pelvis: Gallstones are present. Some air within the gallbladder. Possible emphysematous cholecystitis. Gallbladder ultrasound: Extensive shadowing in the gallbladder related to air in the gallbladder wall. This is evident on CAT scan. There is also gallstones at the gallbladder neck. Small amount of free fluid adjacent to the liver. Gangrenous gallbladder is possible. ASSESSMENT: 1. Possible gangrenous gallbladder PLAN: Continue IV antibiotics Patient to undergo lap jada, possible open today with Dr. Chin Nurse practitioner note has been reviewed by physician. Signing provider agrees with the documented findings, assessment, and plan of care. Past Medical History Past Medical History: Diabetes Mellitus, Hearing Disorder / Deafness, Hyperlipidemia, Hypertension Additional Past Medical History / Comment(s): cataracts lense. hearing loss. bronchitis. History of Any Multi-Drug Resistant Organisms: None Reported Past Surgical History: No Surgical Hx Reported Past Psychological History: No Psychological Hx Reported Smoking Status: Never smoker Past Alcohol Use History: None Reported Past Drug Use History: None Reported Medications and Allergies Home Medications Medication Instructions Recorded Confirmed Type Atorvastatin [Lipitor] 40 mg PO DAILY 03/27/19 11/08/19 History Furosemide [Lasix] 60 mg PO DAILY 03/27/19 11/08/19 History Hydrochlorothiazide 12.5 mg PO DAILY 03/27/19 11/08/19 History Losartan [Cozaar] 50 mg PO DAILY 03/27/19 11/08/19 History Metoprolol Tartrate [Lopressor] 25 mg PO DAILY 03/27/19 11/08/19 History Pioglitazone [Actos] 15 mg PO DAILY 03/27/19 11/08/19 History Potassium Chloride ER [K-Dur 10] 10 meq PO Q48H 03/27/19 11/08/19 History Cholecalciferol [Vitamin D3 (25 1,000 unit PO DAILY 11/08/19 11/08/19 History Mcg = 1000 Iu)] Cyanocobalamin (Vitamin B-12) 5,000 mcg PO DAILY 11/08/19 11/08/19 History [Vitamin B-12] Hydrocortisone Cream 1 applic TOPICAL DAILY PRN 11/08/19 11/08/19 History [Hydrocortisone 2.5% Cream] Allergies Allergy/AdvReac Type Severity Reaction Status Date / Time pseudoephedrine Allergy Rash/Hives Verified 11/08/19 19:40 [From Actifed] triprolidine [From Actifed] Allergy Rash/Hives Verified 11/08/19 19:40 codeine AdvReac Nausea & Verified 11/08/19 19:40 Vomiting propoxyphene [From Darvon] AdvReac Nausea & Verified 11/08/19 19:40 Vomiting Surgical - Exam Vital Signs Temp Pulse Resp BP Pulse Ox 99.4 F 96 20 136/50 96 11/08/19 18:48 11/08/19 18:48 11/08/19 18:48 11/08/19 18:48 11/08/19 18:48 Results - Labs 11/09/19 03:58 11/09/19 03:58 Abnormal Lab Results - Last 24 Hours (Table) 11/08/19 11/08/19 11/08/19 Range/Units 19:40 20:21 20:21 WBC 15.7 H (3.8-10.6) k/uL RBC 3.50 L (3.80-5.40) m/uL Hgb 10.7 L (11.4-16.0) gm/dL Hct 31.2 L (34.0-46.0) % Neutrophils # 14.3 H (1.3-7.7) k/uL Lymphocytes # 0.4 L (1.0-4.8) k/uL Monocytes # (0-1.0) k/uL D-Dimer (<0.60) mg/L FEU Sodium 135 L (137-145) mmol/L Potassium 2.5 L* (3.5-5.1) mmol/L Chloride 93 L (98-107) mmol/L Carbon Dioxide 31 H (22-30) mmol/L BUN 75 H (7-17) mg/dL Creatinine 1.59 H (0.52-1.04) mg/dL Glucose 192 H (74-99) mg/dL POC Glucose (mg/dL) (75-99) mg/dL Calcium (8.4-10.2) mg/dL Total Bilirubin 1.4 H (0.2-1.3) mg/dL AST 82 H (14-36) U/L Lactate Dehydrogenase (313-618) U/L C-Reactive Protein (<10.0) mg/L Total Protein 6.2 L (6.3-8.2) g/dL Albumin 3.2 L (3.5-5.0) g/dL Procalcitonin (0.02-0.09) ng/mL Urine Protein Trace H (Negative) 11/08/19 11/08/19 11/08/19 Range/Units 20:21 20:21 20:21 WBC (3.8-10.6) k/uL RBC (3.80-5.40) m/uL Hgb (11.4-16.0) gm/dL Hct (34.0-46.0) % Neutrophils # (1.3-7.7) k/uL Lymphocytes # (1.0-4.8) k/uL Monocytes # (0-1.0) k/uL D-Dimer 3.99 H (<0.60) mg/L FEU Sodium (137-145) mmol/L Potassium (3.5-5.1) mmol/L Chloride (98-107) mmol/L Carbon Dioxide (22-30) mmol/L BUN (7-17) mg/dL Creatinine (0.52-1.04) mg/dL Glucose (74-99) mg/dL POC Glucose (mg/dL) (75-99) mg/dL Calcium (8.4-10.2) mg/dL Total Bilirubin (0.2-1.3) mg/dL AST (14-36) U/L Lactate Dehydrogenase 747 H (313-618) U/L C-Reactive Protein 394.8 H (<10.0) mg/L Total Protein (6.3-8.2) g/dL Albumin (3.5-5.0) g/dL Procalcitonin 1.27 H (0.02-0.09) ng/mL Urine Protein (Negative) 11/09/19 11/09/19 11/09/19 Range/Units 03:58 03:58 06:39 WBC 14.2 H (3.8-10.6) k/uL RBC 3.31 L (3.80-5.40) m/uL Hgb 9.7 L (11.4-16.0) gm/dL Hct 29.3 L (34.0-46.0) % Neutrophils # 12.3 H (1.3-7.7) k/uL Lymphocytes # 0.5 L (1.0-4.8) k/uL Monocytes # 1.1 H (0-1.0) k/uL D-Dimer (<0.60) mg/L FEU Sodium (137-145) mmol/L Potassium 2.8 L (3.5-5.1) mmol/L Chloride 96 L (98-107) mmol/L Carbon Dioxide 33 H (22-30) mmol/L BUN 74 H (7-17) mg/dL Creatinine 1.39 H (0.52-1.04) mg/dL Glucose 129 H (74-99) mg/dL POC Glucose (mg/dL) 150 H (75-99) mg/dL Calcium 8.2 L (8.4-10.2) mg/dL Total Bilirubin (0.2-1.3) mg/dL AST 73 H (14-36) U/L Lactate Dehydrogenase (313-618) U/L C-Reactive Protein (<10.0) mg/L Total Protein 5.7 L (6.3-8.2) g/dL Albumin 2.9 L (3.5-5.0) g/dL Procalcitonin (0.02-0.09) ng/mL Urine Protein (Negative) 11/09/19 Range/Units 10:14 WBC (3.8-10.6) k/uL RBC (3.80-5.40) m/uL Hgb (11.4-16.0) gm/dL Hct (34.0-46.0) % Neutrophils # (1.3-7.7) k/uL Lymphocytes # (1.0-4.8) k/uL Monocytes # (0-1.0) k/uL D-Dimer (<0.60) mg/L FEU Sodium (137-145) mmol/L Potassium (3.5-5.1) mmol/L Chloride (98-107) mmol/L Carbon Dioxide (22-30) mmol/L BUN (7-17) mg/dL Creatinine (0.52-1.04) mg/dL Glucose (74-99) mg/dL POC Glucose (mg/dL) 168 H (75-99) mg/dL Calcium (8.4-10.2) mg/dL Total Bilirubin (0.2-1.3) mg/dL AST (14-36) U/L Lactate Dehydrogenase (313-618) U/L C-Reactive Protein (<10.0) mg/L Total Protein (6.3-8.2) g/dL Albumin (3.5-5.0) g/dL Procalcitonin (0.02-0.09) ng/mL Urine Protein (Negative) Diabetes panel 11/08/19 11/09/19 Range/Units 20:21 03:58 Sodium 135 L 140 (137-145) mmol/L Potassium 2.5 L* 2.8 L (3.5-5.1) mmol/L Chloride 93 L 96 L (98-107) mmol/L Carbon Dioxide 31 H 33 H (22-30) mmol/L BUN 75 H 74 H (7-17) mg/dL Creatinine 1.59 H 1.39 H (0.52-1.04) mg/dL Glucose 192 H 129 H (74-99) mg/dL Calcium 8.4 8.2 L (8.4-10.2) mg/dL AST 82 H 73 H (14-36) U/L ALT 28 26 (4-34) U/L Alkaline Phosphatase 113 109 (38-126) U/L Total Protein 6.2 L 5.7 L (6.3-8.2) g/dL Albumin 3.2 L 2.9 L (3.5-5.0) g/dL Thyroid panel 11/09/19 Range/Units 03:58 TSH 1.540 (0.465-4.680) mIU/L Calcium panel 11/08/19 11/09/19 Range/Units 20:21 03:58 Calcium 8.4 8.2 L (8.4-10.2) mg/dL Albumin 3.2 L 2.9 L (3.5-5.0) g/dL Pituitary panel 11/08/19 11/09/19 Range/Units 20:21 03:58 Sodium 135 L 140 (137-145) mmol/L Potassium 2.5 L* 2.8 L (3.5-5.1) mmol/L Chloride 93 L 96 L (98-107) mmol/L Carbon Dioxide 31 H 33 H (22-30) mmol/L BUN 75 H 74 H (7-17) mg/dL Creatinine 1.59 H 1.39 H (0.52-1.04) mg/dL Glucose 192 H 129 H (74-99) mg/dL Calcium 8.4 8.2 L (8.4-10.2) mg/dL TSH 1.540 (0.465-4.680) mIU/L Adrenal panel 11/08/19 11/09/19 Range/Units 20:21 03:58 Sodium 135 L 140 (137-145) mmol/L Potassium 2.5 L* 2.8 L (3.5-5.1) mmol/L Chloride 93 L 96 L (98-107) mmol/L Carbon Dioxide 31 H 33 H (22-30) mmol/L BUN 75 H 74 H (7-17) mg/dL Creatinine 1.59 H 1.39 H (0.52-1.04) mg/dL Glucose 192 H 129 H (74-99) mg/dL Calcium 8.4 8.2 L (8.4-10.2) mg/dL Total Bilirubin 1.4 H 1.1 (0.2-1.3) mg/dL AST 82 H 73 H (14-36) U/L ALT 28 26 (4-34) U/L Alkaline Phosphatase 113 109 (38-126) U/L Total Protein 6.2 L 5.7 L (6.3-8.2) g/dL Albumin 3.2 L 2.9 L (3.5-5.0) g/dL
--- NOTE | 2019-11-09 15:55 | P.PN ---
Subjective Progress Note Date: 11/09/19 Principal diagnosis: Abdominal pain Patient was seen and examined. No acute events overnight. Patient reports continued right upper quadrant abdominal discomfort. She complains of thirst and is requesting for something to drink. She denies any cough or shortness of breath. She denies any chest pain or palpitations. No nausea or vomiting. Patient and family refusing coronavirus testing. Objective - Vital Signs Vital signs: Vital Signs Temp 99.6 F 11/09/19 13:15 Pulse 91 11/09/19 13:15 Resp 22 11/09/19 13:15 BP 112/72 11/09/19 13:15 Pulse Ox 99 11/09/19 13:15 Intake & Output 11/08/19 11/09/19 11/09/19 18:59 06:59 18:59 Intake Total 1100 460 Output Total 501 Balance 599 460 Weight 103.419 kg 103.419 kg Intake: Intake, IV Titration 1100 460 Amount Sodium Chloride 0.9% 1, 360 000 ml @ 130 mls/hr IV . Q7H42M [facility] Rx#:[id number] Sodium Chloride 0.9% 1, 1000 000 ml @ 999 mls/hr IV . Q1H1M [facility] Rx#:[id number] cefTRIAXone 1 gm In 100 Sodium Chloride 0.9% 50 ml @ 100 mls/hr IVPB Q24H [facility] Rx#:[id number] metroNIDAZOLE-NS PMX 500 100 mg In Saline 1 100ml.bag @ 100 mls/hr IVPB Q6HR [facility] Rx#:[id number] Output: Urine 500 Straight 500 Stool 1 Other: Voiding Method Diaper Incontinent # Voids 1 - Exam General: [Elderly, toxic], [no distress], [appears at stated age] Derm: [warm], [dry] Head: [atraumatic], [normocephalic], [symmetric] Eyes: [EOMI], [no lid lag], [anicteric sclera] Mouth: [no lip lesion], [mucus membranes moist] Cardiovascular: [S1S2 irregularly irregular], [no murmur], [positive posterior tibial pulse bilateral], Lungs: [bibasilar Rales bilateral], [good air entry bilaterally] , [no accessory muscle use] Abdominal: [soft], [epigastric tenderness along with right upper quadrant tenderness, Suazo sign positive], [no guarding], [no appreciable organomegaly] Ext: [no gross muscle atrophy], [no edema], [no contractures] Neuro: [no focal neuro deficits] Psych: [Alert], [oriented], [appropriate affect] - Labs CBC & Chem 7: 11/09/19 03:58 11/09/19 13:25 Labs: Abnormal Lab Results - Last 24 Hours (Table) 11/08/19 11/08/19 11/08/19 Range/Units 19:40 20:21 20:21 WBC 15.7 H (3.8-10.6) k/uL RBC 3.50 L (3.80-5.40) m/uL Hgb 10.7 L (11.4-16.0) gm/dL Hct 31.2 L (34.0-46.0) % Neutrophils # 14.3 H (1.3-7.7) k/uL Lymphocytes # 0.4 L (1.0-4.8) k/uL Monocytes # (0-1.0) k/uL D-Dimer (<0.60) mg/L FEU Sodium 135 L (137-145) mmol/L Potassium 2.5 L* (3.5-5.1) mmol/L Chloride 93 L (98-107) mmol/L Carbon Dioxide 31 H (22-30) mmol/L BUN 75 H (7-17) mg/dL Creatinine 1.59 H (0.52-1.04) mg/dL Glucose 192 H (74-99) mg/dL POC Glucose (mg/dL) (75-99) mg/dL Calcium (8.4-10.2) mg/dL Total Bilirubin 1.4 H (0.2-1.3) mg/dL AST 82 H (14-36) U/L Lactate Dehydrogenase (313-618) U/L C-Reactive Protein (<10.0) mg/L Total Protein 6.2 L (6.3-8.2) g/dL Albumin 3.2 L (3.5-5.0) g/dL Procalcitonin (0.02-0.09) ng/mL Urine Protein Trace H (Negative) 11/08/19 11/08/19 11/08/19 Range/Units 20:21 20:21 20:21 WBC (3.8-10.6) k/uL RBC (3.80-5.40) m/uL Hgb (11.4-16.0) gm/dL Hct (34.0-46.0) % Neutrophils # (1.3-7.7) k/uL Lymphocytes # (1.0-4.8) k/uL Monocytes # (0-1.0) k/uL D-Dimer 3.99 H (<0.60) mg/L FEU Sodium (137-145) mmol/L Potassium (3.5-5.1) mmol/L Chloride (98-107) mmol/L Carbon Dioxide (22-30) mmol/L BUN (7-17) mg/dL Creatinine (0.52-1.04) mg/dL Glucose (74-99) mg/dL POC Glucose (mg/dL) (75-99) mg/dL Calcium (8.4-10.2) mg/dL Total Bilirubin (0.2-1.3) mg/dL AST (14-36) U/L Lactate Dehydrogenase 747 H (313-618) U/L C-Reactive Protein 394.8 H (<10.0) mg/L Total Protein (6.3-8.2) g/dL Albumin (3.5-5.0) g/dL Procalcitonin 1.27 H (0.02-0.09) ng/mL Urine Protein (Negative) 11/09/19 11/09/19 11/09/19 Range/Units 03:58 03:58 06:39 WBC 14.2 H (3.8-10.6) k/uL RBC 3.31 L (3.80-5.40) m/uL Hgb 9.7 L (11.4-16.0) gm/dL Hct 29.3 L (34.0-46.0) % Neutrophils # 12.3 H (1.3-7.7) k/uL Lymphocytes # 0.5 L (1.0-4.8) k/uL Monocytes # 1.1 H (0-1.0) k/uL D-Dimer (<0.60) mg/L FEU Sodium (137-145) mmol/L Potassium 2.8 L (3.5-5.1) mmol/L Chloride 96 L (98-107) mmol/L Carbon Dioxide 33 H (22-30) mmol/L BUN 74 H (7-17) mg/dL Creatinine 1.39 H (0.52-1.04) mg/dL Glucose 129 H (74-99) mg/dL POC Glucose (mg/dL) 150 H (75-99) mg/dL Calcium 8.2 L (8.4-10.2) mg/dL Total Bilirubin (0.2-1.3) mg/dL AST 73 H (14-36) U/L Lactate Dehydrogenase (313-618) U/L C-Reactive Protein (<10.0) mg/L Total Protein 5.7 L (6.3-8.2) g/dL Albumin 2.9 L (3.5-5.0) g/dL Procalcitonin (0.02-0.09) ng/mL Urine Protein (Negative) 11/09/19 11/09/19 Range/Units 10:14 13:25 WBC (3.8-10.6) k/uL RBC (3.80-5.40) m/uL Hgb (11.4-16.0) gm/dL Hct (34.0-46.0) % Neutrophils # (1.3-7.7) k/uL Lymphocytes # (1.0-4.8) k/uL Monocytes # (0-1.0) k/uL D-Dimer (<0.60) mg/L FEU Sodium (137-145) mmol/L Potassium 3.3 L (3.5-5.1) mmol/L Chloride (98-107) mmol/L Carbon Dioxide (22-30) mmol/L BUN (7-17) mg/dL Creatinine (0.52-1.04) mg/dL Glucose (74-99) mg/dL POC Glucose (mg/dL) 168 H (75-99) mg/dL Calcium (8.4-10.2) mg/dL Total Bilirubin (0.2-1.3) mg/dL AST (14-36) U/L Lactate Dehydrogenase (313-618) U/L C-Reactive Protein (<10.0) mg/L Total Protein (6.3-8.2) g/dL Albumin (3.5-5.0) g/dL Procalcitonin (0.02-0.09) ng/mL Urine Protein (Negative) Assessment and Plan Assessment: RUQ abdominal pain w/ suspected cholecystitis -C/w Metronidazole and Levaquin -Consult Surgery, plans for possible laparoscopic cholecystectomy -NPO for now -Pain control -Follow up blood cultures Abnormal CXR with cough, elevated CRP and D-Dimer -Inflammatory markers possibly elevated due to suspected cholecystitis -Patient's daughter refused COVID testing at this time -C/w droplet isolation at this time -Pulm consulted -Follow-up pro-calcitonin -Continue with Levaquin for now Newly diagnosed A. 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 C/w Lopressor DVT prophylaxis -Heparin subq
[2019-11-09 16:21] LABS: Hemoglobin A1C 6.5 % (4.0-6.0)
[2019-11-09 16:47] LABS: Glucose,Whole Blood 165 mg/dL (75-99)
[2019-11-09] MEDS ORDERED: ONDANSETRON 4 MG/2 ML VIAL ONE (19:50)
[2019-11-09] MEDS ORDERED: fentaNYL (PF) 50 MCG/ML 2 ML AMP ONE (19:50)
[2019-11-09] MEDS ORDERED: KETAMINE 10 MG/ML 20 ML VIAL ONE (19:50)
[2019-11-09] MEDS ORDERED: LIDOCAINE 1% INJ 10MG/ML (20 ML MDV) ONE (19:50)
[2019-11-09] MEDS ORDERED: GLYCOPYRROLATE 0.2 MG/ML 2 ML VIAL ONE (19:50)
[2019-11-09] MEDS ORDERED: SUCCINYLCHOLINE CHLORIDE 100 MG/5 ML SYR IV ONE (19:50)
[2019-11-09] MEDS ORDERED: SODIUM CHLORIDE 0.9% 1,000 ML IV ONE (20:05)
[2019-11-09] MEDS ORDERED: BUPIVACAIN-EPI 0.25%-1:200,000 30 ML VIAL SQ ONE (20:35)
--- NOTE | 2019-11-09 20:54 | P.OP ---
Date of Procedure: 11/09/19 Preoperative Diagnosis: Acute gangrenous cholecystitis Postoperative Diagnosis: Acute gangrenous cholecystitis Procedure(s) Performed: Laparoscopic cholecystectomy Anesthesia: ZENA Surgeon: Dallin Chin Estimated Blood Loss (ml): 25 Pathology: other (Gallbladder) Condition: stable Disposition: PACU Description of Procedure: The patient was placed on the operating table. The patient received a general endotracheal tube anesthesia. The patients abdomen was prepped and draped in the usual sterile fashion. Through an infraumbilical stab incision, the fascia of the anterior abdominal wall was grasped with a pair of Kochers and then the Veress needle was placed in the peritoneal cavity. Position of the Veress needle was confirmed with positive drop test. The abdomen was then insufflated. After adequate insufflation, the 10 mm trocar was placed in the p eritoneal cavity. Following this the laparoscope was placed in the peritoneal cavity. The patient was placed in the head-up, right side up position and then a 5 mm trocar was placed in the right lateral and right subcostal position under direct visualization. A 8 mm trocar was placed in the epigastric position. The gallbladder appeared to have patchy necrosis. The gallbladder is very inf lamed. The gallbladder was grasped in the fundus and infundibulum. Traction on the gallbladder was placed in the lateral and the cephalad positions. The triangle of Calot was visualized.. The cystic duct was bluntly dissected until the union of the cystic duct and common bile duct was seen. A critical view of safety was achieved. The cystic duct was then divided and sealed with the Harmo maria fernanda scissors. A PDS Endoloop was then placed throughout the cystic duct stump. The cystic artery divided and sealed with the Harmonic scissors. The gallbladder was then removed from the liver bed using Harmonic scissors. The gallbladder was then extracted through the epigastric port site. Operative field was checked for any bleeding spots and Harmonic scissors was used to coagulate the liver bed. The abdomen was irrigated. A JOSE ENRIQUE drains placed in the gallbladder fossa. It was brought out through the lateral port site. The trocars were removed. The skin was closed using interrupted 3-0 Vicryl suture. Dermabond dressing were applied. The patient tolerated the procedure well.
[2019-11-09] MEDS: HYDROmorphone 1 MG/ML 1 ML SYRINGE IVP PRN (21:25)
[2019-11-09] MEDS ORDERED: HYDROmorphone 0.5 MG/0.5 ML SYRINGE IVP ONE (21:49)
[2019-11-09 21:58] LABS: Glucose,Whole Blood 166 mg/dL (75-99)
[2019-11-09] MEDS ORDERED: AZITHROMYCIN 500 MG TAB PO SCH (21:58)
[2019-11-09] MEDS: FUROSEMIDE 10 MG/ML 4 ML VIAL IV SCH (22:43)
[2019-11-10] MEDS: metroNIDAZOLE-NS PMX 500 MG in SALINE 1 100ML.BAG IVPB SCH ×4 (00:30→16:29)
[2019-11-10] MEDS: HYDROmorphone 1 MG/ML 1 ML SYRINGE IVP PRN (00:30)
[2019-11-10 06:12] LABS: Glucose,Whole Blood 177 mg/dL (75-99)
[2019-11-10] MEDS: METOPROLOL TARTRATE 25 MG TAB PO SCH (07:52)
[2019-11-10] MEDS: ENOXAPARIN 30 MG/0.3 ML SYRINGE SQ SCH (07:52)
[2019-11-10] MEDS: PANTOPRAZOLE 40 MG/10 ML VIAL IV SCH (07:52)
[2019-11-10] MEDS: INSULIN ASPART (NovoLOG) 100 UNIT/ML VIAL SQ SCH ×3 (07:52→16:14)
[2019-11-10] MEDS: ATORVASTATIN 40 MG TAB PO SCH (07:52)
[2019-11-10] MEDS: FUROSEMIDE 10 MG/ML 4 ML VIAL IV SCH ×2 (07:52→20:43)
[2019-11-10 08:36] LABS: HCT 31.7 % (34.0-46.0); HGB 10.3 gm/dL (11.4-16.0); MCH 29.4 pg (25.0-35.0); MCHC 32.4 g/dL (31.0-37.0); Mean Platelet Volume 7.6; Platelet Count 194 k/uL (150-450); RBC 3.48 m/uL (3.80-5.40); RDW 15.1 % (11.5-15.5); WBC 12.8 k/uL (3.8-10.6)
[2019-11-10 08:47] LABS: Albumin 2.8 g/dL (3.5-5.0); Calcium 8.7 mg/dL (8.4-10.2); Potassium 2.9 mmol/L (3.5-5.1); Total Bilirubin 0.8 mg/dL (0.2-1.3); Total Protein 5.7 g/dL (6.3-8.2)
--- NOTE | 2019-11-10 10:01 | P.PN ---
Subjective Progress Note Date: 11/10/19 This is an 83-year-old female patient with history of hypertension, [id number] diabetes, hyperlipidemia, who presented to the hospital with symptoms of fatigue and generalized malaise, body aches, on presentation here she was found to be in atrial fibrillation with a rapid ventricular response. Patient also underwent a CAT scan of the abdomen and pelvis which revealed a gangrenous gallbladder for which the patient underwent a laparoscopic cholecystectomy yesterday. She was seen and examined this morning, blood pressure 110/60 with a heart rate in the 90s, 98% on 5 L of oxygen. Blood cell count 12.8, hemoglobin 10.3, platelet count 194. Sodium 143, potassium 2.9, BUN 61, creatinine 1.5. Patient is on IV Lasix and diuresed well through the night last night. Calcitonin level was also noted to be elevated at 1.27. Repeat chest x-ray performed yesterday did show a resolving congestive heart failure. Objective - Vital Signs Vital signs: Vital Signs Temp 98.4 F 11/10/19 07:35 Pulse 93 11/10/19 07:35 Resp 18 11/10/19 07:35 BP 109/63 11/10/19 07:35 Pulse Ox 98 11/10/19 07:35 Intake & Output 11/09/19 11/10/19 11/10/19 18:59 06:59 18:59 Intake Total 460 300 Output Total 1548 Balance 460 -1248 Weight 77 kg Intake: IV 300 Intake, IV Titration 460 Amount Sodium Chloride 0.9% 1, 360 000 ml @ 130 mls/hr IV . Q7H42M [facility] Rx#:[id number] metroNIDAZOLE-NS PMX 500 100 mg In Saline 1 100ml.bag @ 100 mls/hr IVPB Q6HR [facility] Rx#:[id number] Output: Drainage 100 Right Abdomen 100 Urine 700 Post Void Residual 700 Stool 3 Estimated Blood Loss 45 Other: Voiding Method Diaper Diaper Diaper Incontinent Incontinent Incontinent - Exam GENERAL EXAM: Alert, very pleasant, 83-year-old white female, on 5l, with a pulse ox of 98%. HEAD: Normocephalic/atraumatic. EYES: Normal reaction of pupils, equal size. Conjunctiva pink, sclera white. NOSE: Clear with pink turbinates. THROAT: No erythema or exudates. NECK: No masses, no JVD, no thyroid enlargement, no adenopathy. CHEST: No chest wall deformity. Symmetrical expansion. LUNGS: Equal air entry with no crackles, wheeze, rhonchi or dullness. CVS: Irregular rate and rhythm, normal S1 and S2, no gallops, no murmurs, no rubs ABDOMEN: Soft, mild abdominal tenderness in the right upper quadrant. No hepatosplenomegaly, normal bowel sounds, no guarding or rigidity. EXTREMITIES: No clubbing, no edema, no cyanosis, 2+ pulses and upper and lower extremities. MUSCULOSKELETAL: Muscle strength and tone normal. SPINE: No scoliosis or deformity SKIN: No rashes CENTRAL NERVOUS SYSTEM: Alert and oriented -3. No focal deficits, tone is normal in all 4 extremities. PSYCHIATRIC: Alert and oriented -3. Appropriate affect. Intact judgment and insight. - Labs CBC & Chem 7: 11/10/19 08:13 11/10/19 08:13 Labs: Abnormal Lab Results - Last 24 Hours (Table) 11/09/19 11/09/19 11/09/19 Range/Units 03:58 10:14 13:25 WBC (3.8-10.6) k/uL RBC (3.80-5.40) m/uL Hgb (11.4-16.0) gm/dL Hct (34.0-46.0) % Potassium 3.3 L (3.5-5.1) mmol/L BUN (7-17) mg/dL Creatinine (0.52-1.04) mg/dL Glucose (74-99) mg/dL POC Glucose (mg/dL) 168 H (75-99) mg/dL Hemoglobin A1c 6.5 H (4.0-6.0) % AST (14-36) U/L ALT (4-34) U/L Total Protein (6.3-8.2) g/dL Albumin (3.5-5.0) g/dL 11/09/19 11/09/19 11/10/19 Range/Units 16:46 21:52 06:11 WBC (3.8-10.6) k/uL RBC (3.80-5.40) m/uL Hgb (11.4-16.0) gm/dL Hct (34.0-46.0) % Potassium (3.5-5.1) mmol/L BUN (7-17) mg/dL Creatinine (0.52-1.04) mg/dL Glucose (74-99) mg/dL POC Glucose (mg/dL) 165 H 166 H 177 H (75-99) mg/dL Hemoglobin A1c (4.0-6.0) % AST (14-36) U/L ALT (4-34) U/L Total Protein (6.3-8.2) g/dL Albumin (3.5-5.0) g/dL 11/10/19 11/10/19 Range/Units 08:13 08:13 WBC 12.8 H (3.8-10.6) k/uL RBC 3.48 L (3.80-5.40) m/uL Hgb 10.3 L (11.4-16.0) gm/dL Hct 31.7 L (34.0-46.0) % Potassium 2.9 L (3.5-5.1) mmol/L BUN 61 H (7-17) mg/dL Creatinine 1.51 H (0.52-1.04) mg/dL Glucose 157 H (74-99) mg/dL POC Glucose (mg/dL) (75-99) mg/dL Hemoglobin A1c (4.0-6.0) % AST 83 H (14-36) U/L ALT 36 H (4-34) U/L Total Protein 5.7 L (6.3-8.2) g/dL Albumin 2.8 L (3.5-5.0) g/dL Microbiology - Last 24 Hours (Table) 11/08/19 19:35 Blood Culture - Preliminary Blood No Growth after 24 hours 11/09/19 17:25 Gram Stain - Preliminary Sputum Sputum Culture - Preliminary Assessment and Plan Plan: Assessment and plan: #1. Acute abdominal pain, computed tomography scan revealed a gangrenous gallbladder, status post laparoscopic cholecystectomy #2. Weakness, fatigue, dehydration related to the above #3. Acute kidney injury related to ATN #4. Hypokalemia #5. New onset atrial fibrillation with RVR, persistent #6. Congestive heart failure, LV function unknown #7. History of mild intermittent bronchial asthma #8. History of multiple nonspecific pulmonary nodules #9. Hypertension #10. Hyperlipidemia #11. Diabetes mellitus type II #12 possible pneumonia Plan We will review the patient's echocardiogram with Doppler study. Discontinue IV Cardizem and increase the dose of beta pancho. Initiate oral anticoagulation when okay with surgery. Continue current dose of IV Lasix for 24 hours. DNP note has been reviewed, I agree with a documented findings and plan of care. Patient was seen and examined.
[2019-11-10] MEDS: POTASSIUM CHLORIDE ER 20 MEQ TAB.ER PO SCH ×3 (10:18→12:14)
[2019-11-10 11:11] LABS: Glucose,Whole Blood 174 mg/dL (75-99)
--- NOTE | 2019-11-10 11:46 | P.PN ---
Subjective Progress Note Date: 11/10/19 Principal diagnosis: Acute abdominal pain, gangrenous cholecystitis 83-year-old white female patient with past medical history of mild intermittent bronchial asthma, history of nonspecific pulmonary nodules for which she follows with Dr. Ambrocio in the pulmonary clinic, and there were monitored for a long period of time since July 2015, have not shown significant change in size and patient had been asymptomatic and the nodules were nonspecific. Medical history includes benign essential hypertension, hyperlipidemia, and diabetes mellitus. Patient was brought into the emergency department by her daughter on 11/08/2019 in an ambulance for evaluation of mental status, concern for urinary tract infection, not feeling well, weak, fatigued and decreased oral intake. De nied any fevers, patient is having abdominal discomfort and tenderness in the right upper quadrant and lower abdominal discomfort. Her last bowel movement was the day before presentation. CT of the abdomen and pelvis without contrast showed patchy densities within the lung bases, cardiomegaly, gallstones present in the gallbladder with some air within the gallbladder, consideration for emphysematous cholecystitis. EKG showed atrial fibrillation with mildly elevated ventricular rate for which patient was started on Cardizem drip. Ultrasound of the gallbladder showed extensive shadowing in the gallbladder, gallstones in the gallbladder neck, and small amount of free fluid adjacent to the liver, with possibility of a gangrenous gallbladder. Patient is being kept nothing by mouth, surgical consultation was requested and patient is being considered for laparoscopic cholecystectomy today. No cough or congestion, no fever or chills, room air pulse ox 97%, hemodynamically she is stable. Her labs showed white blood cell count of 15.7, hemoglobin is 10.7, d-dimer is 3.9, sodium is 135, potassium is 2.5, chloride is 93, CO2 31, BUN is 75, creatinine is 1.59, plasma lactic acid is 1.3, total bilirubin is 1.4, ferritin is 244, AST is 82, ALT is 28, alk phos is 113, LDH is 747, CRP is 394, proBNP is 4700, broke acetone is elevated at 1.27 and patient has been started on empiric antibiotics, in the form of Levaquin, and Flagyl, patient was given IV fluid bolus, and IV hydration overnight, and on today's labs her renal profile is slightly improved, however she still hypokalemic, which is being replaced per protocol. Urinalysis was negative for any sign of infection. She was started on IV Lasix by cardiology, for elevated proBNP and today's chest x-ray showing vascular prominence, evidence of fluid volume overload. On 11/10/2019 patient seen in follow-up on selective care unit, today is postoperative day 1, status post laparoscopic cholecystectomy for acute gangrenous cholecystitis. Patient is doing well today, she is awake and alert, she is in no acute distress, her pain is reasonably controlled, complains of nausea or vomiting, no shortness of breath or chest pain, she is on 5 L of oxygen and the pulse ox of 98%, hemodynamically stable, her breathing is comfortable, she is afebrile, she is on empiric antibiotics in the form of Levaquin and Flagyl. She remains in atrial fibrillation, with a controlled rate currently at a rate of 62 BPM. She is on prophylactic dose of Lovenox for anticoagulation, cardiology is following, and patient is also receiving IV Lasix for acute exacerbation of CHF, echocardiogram has been completed, and is pending at this time, she has been afebrile. Patient will be started on full liquid diet today. She is in negative fluid balance, today's labs have been reviewed, showing white blood cell count 12.8, hemoglobin of 10.3, sodium of 143, potassium is 2.9, chloride is 104, B1 of 61 and creatinine of 1.51. Objective - Vital Signs Vital signs: Vital Signs Temp 98.4 F 11/10/19 07:35 Pulse 93 11/10/19 07:35 Resp 18 11/10/19 07:35 BP 109/63 11/10/19 07:35 Pulse Ox 98 11/10/19 07:35 Intake & Output 11/09/19 11/10/19 11/10/19 18:59 06:59 18:59 Intake Total 460 300 116.667 Output Total 1548 30 Balance 460 -1248 86.667 Weight 77 kg Intake: IV 300 Intake, IV Titration 460 116.667 Amount Diltiazem 125 mg In 116.667 Sodium Chloride 0.9% 100 ml @ 5 MG/HR 5 mls/hr IV .Q24H [facility] Rx#:[id number] Sodium Chloride 0.9% 1, 360 000 ml @ 130 mls/hr IV . Q7H42M [facility] Rx#:[id number] metroNIDAZOLE-NS PMX 500 100 mg In Saline 1 100ml.bag @ 100 mls/hr IVPB Q6HR [facility] Rx#:[id number] Output: Drainage 100 30 Right Abdomen 100 30 Urine 700 Post Void Residual 700 Stool 3 Estimated Blood Loss 45 Other: Voiding Method Diaper Diaper Diaper Incontinent Incontinent Incontinent - Exam GENERAL EXAM: Alert, very pleasant, 83-year-old white female, on 5 L of oxygen with a pulse ox of 98%, seen in the emergency department resting on the gurney, oriented 3, does not appear to be in any acute distress HEAD: Normocephalic/atraumatic. EYES: Normal reaction of pupils, equal size. Conjunctiva pink, sclera white. NOSE: Clear with pink turbinates. THROAT: No erythema or exudates. NECK: No masses, no JVD, no thyroid enlargement, no adenopathy. CHEST: No chest wall deformity. Symmetrical expansion. LUNGS: Equal air entry with no crackles, wheeze, rhonchi or dullness. CVS: Irregular rate and rhythm, normal S1 and S2, no gallops, no murmurs, no r ubs ABDOMEN: Soft, abdominal tenderness in the right upper quadrant, laparoscopic surgical incisions are clean dry and intact, right upper quadrant JOSE ENRIQUE drain present, with small amount of serosanguineous output compressed and draining. No hepatosplenomegaly, normal bowel sounds, no guarding or rigidity. EXTREMITIES: No clubbing, no edema, no cyanosis, 2+ pulses and upper and lower extremities. MUSCULOSKELETAL: Muscle strength and tone normal. SPINE: No scoliosis or deformity SKIN: No rashes CENTRAL NERVOUS SYSTEM: Alert and oriented -3. No focal deficits, tone is normal in all 4 extremities. PSYCHIATRIC: Alert and oriented -3. Appropriate affect. Intact judgment and insight. - Labs CBC & Chem 7: 11/10/19 08:13 11/10/19 08:13 Labs: Abnormal Lab Results - Last 24 Hours (Table) 11/09/19 11/09/19 11/09/19 Range/Units 03:58 13:25 16:46 WBC (3.8-10.6) k/uL RBC (3.80-5.40) m/uL Hgb (11.4-16.0) gm/dL Hct (34.0-46.0) % Potassium 3.3 L (3.5-5.1) mmol/L BUN (7-17) mg/dL Creatinine (0.52-1.04) mg/dL Glucose (74-99) mg/dL POC Glucose (mg/dL) 165 H (75-99) mg/dL Hemoglobin A1c 6.5 H (4.0-6.0) % AST (14-36) U/L ALT (4-34) U/L Total Protein (6.3-8.2) g/dL Albumin (3.5-5.0) g/dL 11/09/19 11/10/19 11/10/19 Range/Units 21:52 06:11 08:13 WBC 12.8 H (3.8-10.6) k/uL RBC 3.48 L (3.80-5.40) m/uL Hgb 10.3 L (11.4-16.0) gm/dL Hct 31.7 L (34.0-46.0) % Potassium (3.5-5.1) mmol/L BUN (7-17) mg/dL Creatinine (0.52-1.04) mg/dL Glucose (74-99) mg/dL POC Glucose (mg/dL) 166 H 177 H (75-99) mg/dL Hemoglobin A1c (4.0-6.0) % AST (14-36) U/L ALT (4-34) U/L Total Protein (6.3-8.2) g/dL Albumin (3.5-5.0) g/dL 11/10/19 11/10/19 Range/Units 08:13 11:10 WBC (3.8-10.6) k/uL RBC (3.80-5.40) m/uL Hgb (11.4-16.0) gm/dL Hct (34.0-46.0) % Potassium 2.9 L (3.5-5.1) mmol/L BUN 61 H (7-17) mg/dL Creatinine 1.51 H (0.52-1.04) mg/dL Glucose 157 H (74-99) mg/dL POC Glucose (mg/dL) 174 H (75-99) mg/dL Hemoglobin A1c (4.0-6.0) % AST 83 H (14-36) U/L ALT 36 H (4-34) U/L Total Protein 5.7 L (6.3-8.2) g/dL Albumin 2.8 L (3.5-5.0) g/dL Microbiology - Last 24 Hours (Table) 11/08/19 19:35 Blood Culture - Preliminary Blood No Growth after 24 hours 11/09/19 17:25 Gram Stain - Preliminary Sputum Sputum Culture - Preliminary Assessment and Plan Plan: Assessment: #1. Acute abdominal pain, related to possibility of gangrenous cholecystitis, ultrasound of the abdomen revealed gallstones at the gallbladder neck, air in the gallbladder wall. Status post laparoscopic cholecystectomy, postoperative day 1 #2. Weakness, fatigue, dehydration related to the above #3. Acute kidney injury related to ATN, slightly improved with IV hydration #4. Hypokalemia, serum potassium is being replaced per protocol, likely related to dehydration, poor oral intake and diuretics #5. New onset atrial fibrillation with RVR, currently better controlled #6. Vascular prominence and infiltrates seen on the chest x-ray, possibility of acute exacerbation of CHF with unknown EF #7. History of mild intermittent bronchial asthma, stable #8. History of multiple nonspecific pulmonary nodules have been under surveillance since July [address] Ambrocio, have not shown this can increase the patient has been asymptomatic #9. Hypertension #10. Hyperlipidemia #11. Diabetes mellitus type II #12. History of difficulty hearing Plan: Continue current medical treatment, follow-up chest x-ray is pending for today, patient remains on diuretics, renal profile slightly worsened, we'll review the chest x-ray and patient may need to have a diuretic dose adjusted. Incentive spirometry to the bedside, encourage deep breathing and coughing, maintain pain control, overall patient is doing very well on her postoperative day 1, she will start on diet this afternoon. Echocardiogram is pending, cardiology is following, she remains in A. fib with a controlled rate. We will continue to follow I performed a history & physical examination of the patient and discussed their management with my nurse practitioner, Saumya Juan. I reviewed the nurse pra ctitioner's note and agree with the documented findings and plan of care. Lung sounds are positive for diminished breath sounds. The findings and the impression was discussed with the patient. I attest to the documentation by the nurse practitioner. Time with Patient: Less than 30
--- NOTE | 2019-11-10 12:00 | ECHOF ---
Referral Reason:afib MEASUREMENTS -------- HEIGHT: 167.6 cm WEIGHT: 76.7 kg BP: 137/63 RVIDd: 3.7 cm (< 3.3) IVSd: 1.3 cm (0.6 - 1.1) LVIDd: 4.1 cm (3.9 - 5.3) LVPWd: 1.3 cm (0.6 - 1.1) IVSs: 1.9 cm LVIDs: 2.6 cm LVPWs: 1.4 cm LA Diam: 3.9 cm (2.7 - 3.8) LAESV Index (A-L): 41.47 ml/m Ao Diam: 3.2 cm (2.0 - 3.7) AV Cusp: 2.2 cm (1.5 - 2.6) RAP: 5.00 mmHg RVSP: 52.00 mmHg FINDINGS -------- Atrial fibrillation. This was a technically adequate study. The left ventricular size is normal. There is mild concentric left ventricular hypertrophy. Overa ll left ventricular systolic function is normal with, an EF between 60 - 65 %. The right ventricle is mild to moderately enlarged. LA is severely dilated >40 ml/m2 The right atrium is normal in size. Interatrial and interventricular septum intact. There is mild aortic valve sclerosis. Mild mitral annular calcification present. Mild mitral regurgitation is present. Moderate tricuspid regurgitation present. There is moderate pulmonary hypertension. The right live tricular systolic pressure, as measured by Doppler, is 52.00mmHg. Trace/mild (physiologic) pulmonic regurgitation. The aortic root size is normal. Normal inferior vena cava with normal inspiratory collapse consistent with estimated right atrial pre ssure of 5 mmHg. There is no pericardial effusion. CONCLUSIONS -------- 1. Atrial fibrillation. 2. This was a technically adequate study. 3. The left ventricular size is normal. 4. There is mild concentric left ventricular hypertrophy. 5. Overall left ventricular systolic function is normal with, an EF between 60 - 65 %. 6. The right ventricle is mild to moderately enlarged. 7. LA is severely dilated >40 ml/m2 8. The right atrium is normal in size. 9. Interatrial and interventricular septum intact. 10. There is mild aortic valve sclerosis. 11. Mild mitral annular calcification present. 12. Mild mitral regurgitation is present. 13. Moderate tricuspid regurgitation present. 14. There is moderate pulmonary hypertension. 15. The right ventricular systolic pressure, as measured by Doppler, is 52.00mmHg. 16. Trace/mild (physiologic) pulmonic regurgitation. 17. The aortic root size is normal. 18. Normal inferior vena cava with normal inspiratory collapse consistent with estimated right atrial pressure of 5 mmHg. 19. There is no pericardial effusion. SOLARIS ADMINISTRATOR: Samantha Calero RDCS
[2019-11-10] MEDS ORDERED: HYDROcodone/APAP 5-325MG 1 EACH TAB PO PRN (12:33)
--- NOTE | 2019-11-10 12:33 | P.PN ---
Subjective Progress Note Date: 11/10/19 CHIEF COMPLAINT: Gangrenous gallbladder HISTORY OF PRESENT ILLNESS: Patient is status post laparoscopic cholecystectomy. Postop day #1. Patient examined at the bedside with Dr. Chin. Patient is awake and alert but appears confused. She states her pain is tolerable. PHYSICAL EXAM: VITAL SIGNS: Reviewed. GENERAL: Well-developed in no acute distress. HEENT: No sclera icterus. Extraocular movements grossly intact. Moist buccal mucosa. Head is atraumatic, normocephalic. ABDOMEN: Soft. Nondistended. Surgical site clean dry and intact. JOSE ENRIQUE drain to right lower quadrant with serosanguineous drainage NEUROLOGIC: Alert and oriented x 2. ASSESSMENT: 1. Acute gangrenous cholecystitis PLAN: Continue IV antibiotics Monitor drainage from JOSE ENRIQUE drain Begin clear liquid diet Nurse practitioner note has been reviewed by physician. Signing provider agrees with the documented findings, assessment, and plan of care. Objective - Vital Signs Vital signs: Vital Signs Temp 98.4 F 11/10/19 07:35 Pulse 93 11/10/19 07:35 Resp 18 11/10/19 07:35 BP 109/63 11/10/19 07:35 Pulse Ox 98 11/10/19 07:35 Intake & Output 11/09/19 11/10/19 11/10/19 18:59 06:59 18:59 Intake Total 460 300 116.667 Output Total 1548 30 Balance 460 -1248 86.667 Weight 77 kg Intake: IV 300 Intake, IV Titration 460 116.667 Amount Diltiazem 125 mg In 116.667 Sodium Chloride 0.9% 100 ml @ 5 MG/HR 5 mls/hr IV .Q24H [facility] Rx#:[id number] Sodium Chloride 0.9% 1, 360 000 ml @ 130 mls/hr IV . Q7H42M [facility] Rx#:[id number] metroNIDAZOLE-NS PMX 500 100 mg In Saline 1 100ml.bag @ 100 mls/hr IVPB Q6HR [facility] Rx#:[id number] Output: Drainage 100 30 Right Abdomen 100 30 Urine 700 Post Void Residual 700 Stool 3 Estimated Blood Loss 45 Other: Voiding Method Diaper Diaper Diaper Incontinent Incontinent Incontinent - Labs CBC & Chem 7: 11/10/19 08:13 11/10/19 08:13 Labs: Abnormal Lab Results - Last 24 Hours (Table) 11/09/19 11/09/19 11/09/19 Range/Units 03:58 13:25 16:46 WBC (3.8-10.6) k/uL RBC (3.80-5.40) m/uL Hgb (11.4-16.0) gm/dL Hct (34.0-46.0) % Potassium 3.3 L (3.5-5.1) mmol/L BUN (7-17) mg/dL Creatinine (0.52-1.04) mg/dL Glucose (74-99) mg/dL POC Glucose (mg/dL) 165 H (75-99) mg/dL Hemoglobin A1c 6.5 H (4.0-6.0) % AST (14-36) U/L ALT (4-34) U/L Total Protein (6.3-8.2) g/dL Albumin (3.5-5.0) g/dL 11/09/19 11/10/19 11/10/19 Range/Units 21:52 06:11 08:13 WBC 12.8 H (3.8-10.6) k/uL RBC 3.48 L (3.80-5.40) m/uL Hgb 10.3 L (11.4-16.0) gm/dL Hct 31.7 L (34.0-46.0) % Potassium (3.5-5.1) mmol/L BUN (7-17) mg/dL Creatinine (0.52-1.04) mg/dL Glucose (74-99) mg/dL POC Glucose (mg/dL) 166 H 177 H (75-99) mg/dL Hemoglobin A1c (4.0-6.0) % AST (14-36) U/L ALT (4-34) U/L Total Protein (6.3-8.2) g/dL Albumin (3.5-5.0) g/dL 11/10/19 11/10/19 Range/Units 08:13 11:10 WBC (3.8-10.6) k/uL RBC (3.80-5.40) m/uL Hgb (11.4-16.0) gm/dL Hct (34.0-46.0) % Potassium 2.9 L (3.5-5.1) mmol/L BUN 61 H (7-17) mg/dL Creatinine 1.51 H (0.52-1.04) mg/dL Glucose 157 H (74-99) mg/dL POC Glucose (mg/dL) 174 H (75-99) mg/dL Hemoglobin A1c (4.0-6.0) % AST 83 H (14-36) U/L ALT 36 H (4-34) U/L Total Protein 5.7 L (6.3-8.2) g/dL Albumin 2.8 L (3.5-5.0) g/dL Microbiology - Last 24 Hours (Table) 11/09/19 17:25 Gram Stain - Preliminary Sputum Sputum Culture - Preliminary 11/08/19 19:35 Blood Culture - Preliminary Blood No Growth after 24 hours
--- NOTE | 2019-11-10 12:34 | P.PN ---
Subjective Progress Note Date: 11/10/19 Principal diagnosis: Abdominal pain Patient was seen and examined. No acute events overnight. Patient underwent laparoscopic cholecystectomy yesterday. She reports improvement in her right upper quadrant abdominal pain. She denies any shortness of breath today. No nausea or vomiting. Requesting Pepsi. Started on full liquid diet. She is currently on 5 L nasal cannula. Objective - Vital Signs Vital signs: Vital Signs Temp 98.4 F 11/10/19 07:35 Pulse 93 11/10/19 07:35 Resp 18 11/10/19 07:35 BP 109/63 11/10/19 07:35 Pulse Ox 98 11/10/19 07:35 Intake & Output 11/09/19 11/10/19 11/10/19 18:59 06:59 18:59 Intake Total 460 300 116.667 Output Total 1548 30 Balance 460 -1248 86.667 Weight 77 kg Intake: IV 300 Intake, IV Titration 460 116.667 Amount Diltiazem 125 mg In 116.667 Sodium Chloride 0.9% 100 ml @ 5 MG/HR 5 mls/hr IV .Q24H [facility] Rx#:[id number] Sodium Chloride 0.9% 1, 360 000 ml @ 130 mls/hr IV . Q7H42M [facility] Rx#:[id number] metroNIDAZOLE-NS PMX 500 100 mg In Saline 1 100ml.bag @ 100 mls/hr IVPB Q6HR [facility] Rx#:[id number] Output: Drainage 100 30 Right Abdomen 100 30 Urine 700 Post Void Residual 700 Stool 3 Estimated Blood Loss 45 Other: Voiding Method Diaper Diaper Diaper Incontinent Incontinent Incontinent - Exam General: [Elderly, toxic], [no distress], [appears at stated age] Derm: [warm], [dry] Head: [atraumatic], [normocephalic], [symmetric] Eyes: [EOMI], [no lid lag], [anicteric sclera] Mouth: [no lip lesion], [mucus membranes moist] Cardiovascular: [S1S2 irregularly irregular], [no murmur], [positive DP pulse bilateral], Lungs: [bibasilar Rales bilateral], [good air entry bilaterally] , [no accessory muscle use] Abdominal: [soft], [improved right upper quadrant tenderness with JOSE ENRIQUE drain], [no guarding], [no appreciable organomegaly] Ext: [no gross muscle atrophy], [no edema], [no contractures] Neuro: [no focal neuro deficits] Psych: [Alert], [oriented], [appropriate affect] - Labs CBC & Chem 7: 11/10/19 08:13 11/10/19 08:13 Labs: Abnormal Lab Results - Last 24 Hours (Table) 11/09/19 11/09/19 11/09/19 Range/Units 03:58 13:25 16:46 WBC (3.8-10.6) k/uL RBC (3.80-5.40) m/uL Hgb (11.4-16.0) gm/dL Hct (34.0-46.0) % Potassium 3.3 L (3.5-5.1) mmol/L BUN (7-17) mg/dL Creatinine (0.52-1.04) mg/dL Glucose (74-99) mg/dL POC Glucose (mg/dL) 165 H (75-99) mg/dL Hemoglobin A1c 6.5 H (4.0-6.0) % AST (14-36) U/L ALT (4-34) U/L Total Protein (6.3-8.2) g/dL Albumin (3.5-5.0) g/dL 11/09/19 11/10/19 11/10/19 Range/Units 21:52 06:11 08:13 WBC 12.8 H (3.8-10.6) k/uL RBC 3.48 L (3.80-5.40) m/uL Hgb 10.3 L (11.4-16.0) gm/dL Hct 31.7 L (34.0-46.0) % Potassium (3.5-5.1) mmol/L BUN (7-17) mg/dL Creatinine (0.52-1.04) mg/dL Glucose (74-99) mg/dL POC Glucose (mg/dL) 166 H 177 H (75-99) mg/dL Hemoglobin A1c (4.0-6.0) % AST (14-36) U/L ALT (4-34) U/L Total Protein (6.3-8.2) g/dL Albumin (3.5-5.0) g/dL 11/10/19 11/10/19 Range/Units 08:13 11:10 WBC (3.8-10.6) k/uL RBC (3.80-5.40) m/uL Hgb (11.4-16.0) gm/dL Hct (34.0-46.0) % Potassium 2.9 L (3.5-5.1) mmol/L BUN 61 H (7-17) mg/dL Creatinine 1.51 H (0.52-1.04) mg/dL Glucose 157 H (74-99) mg/dL POC Glucose (mg/dL) 174 H (75-99) mg/dL Hemoglobin A1c (4.0-6.0) % AST 83 H (14-36) U/L ALT 36 H (4-34) U/L Total Protein 5.7 L (6.3-8.2) g/dL Albumin 2.8 L (3.5-5.0) g/dL Microbiology - Last 24 Hours (Table) 11/09/19 17:25 Gram Stain - Preliminary Sputum Sputum Culture - Preliminary 11/08/19 19:35 Blood Culture - Preliminary Blood No Growth after 24 hours Assessment and Plan Assessment: RUQ abdominal pain w/ suspected cholecystitis -C/w Metronidazole and Levaquin -Consult Surgery, POD 1 laparoscopic cholecystectomy -Full liquid diet and advance -Pain control -Follow up blood cultures Acute on chronic hypoxic respiratory failure, concerns for pneumonia versus diastolic CHF exacerbation -Inflammatory markers possibly elevated due to suspected cholecystitis -Patient's daughter refused COVID testing at this time -Start Lasix 40 mg IV twice a day -Follow Echocardiogram, strict intake and output take, daily weights -C/w droplet isolation at this time -Pulm consulted -Follow-up pro-calcitonin -Continue with Levaquin for now Newly diagnosed A. 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 C/w Lopressor DVT prophylaxis -Heparin subq
--- NOTE | 2019-11-10 12:50 | XR ---
EXAMINATION TYPE: XR chest 1V portable DATE OF EXAM: 11/10/2019 CLINICAL HISTORY: Difficulty breathing progress study. TECHNIQUE: Single AP portable frontal view of the chest is obtained. COMPARISON: Chest x-ray from one and 2 days earlier FINDINGS: There is chronic parenchymal change with suspected small to tiny left greater than right p leural effusions remaining present. Associated patchy bibasilar atelectasis and/or infiltrate again s een. Persistent cardiomegaly with atherosclerotic thoracic aorta. Osseous structures remain demineral ized. IMPRESSION: Overall stable findings, chronic parenchymal changes and cardiomegaly with small to tin y bilateral pleural effusions and associated bibasilar atelectasis. No significant change from one da y earlier.
[2019-11-10 16:12] LABS: Glucose,Whole Blood 121 mg/dL (75-99)
[2019-11-10 20:14] LABS: Glucose,Whole Blood 144 mg/dL (75-99)
[2019-11-10] MEDS ORDERED: LEVOFLOXACIN 750MG-D5W PMX 750 MG in DEXTROSE/WATER 1 150ML.BAG IVPB SCH (23:30)
[2019-11-11] MEDS: metroNIDAZOLE-NS PMX 500 MG in SALINE 1 100ML.BAG IVPB SCH ×5 (00:19→23:56)
[2019-11-11 06:07] LABS: Glucose,Whole Blood 111 mg/dL (75-99)
[2019-11-11] MEDS: INSULIN ASPART (NovoLOG) 100 UNIT/ML VIAL SQ SCH ×3 (06:15→17:28)
[2019-11-11] MEDS ORDERED: METOPROLOL TARTRATE 50 MG TAB PO SCH (09:00)
[2019-11-11] MEDS: PANTOPRAZOLE 40 MG/10 ML VIAL IV SCH (09:20)
[2019-11-11] MEDS: ENOXAPARIN 30 MG/0.3 ML SYRINGE SQ SCH (09:21)
[2019-11-11] MEDS: METOPROLOL TARTRATE 25 MG TAB PO SCH (09:21)
[2019-11-11] MEDS: ATORVASTATIN 40 MG TAB PO SCH (09:21)
[2019-11-11] MEDS: FUROSEMIDE 40 MG TAB PO SCH ×2 (09:22→15:40)
--- NOTE | 2019-11-11 11:06 | P.PN ---
Subjective Progress Note Date: 11/11/19 Principal diagnosis: Acute abdominal pain, gangrenous cholecystitis 83-year-old white female patient with past medical history of mild intermittent bronchial asthma, history of nonspecific pulmonary nodules for which she follows with Dr. Ambrocio in the pulmonary clinic, and there were monitored for a long period of time since July 2015, have not shown significant change in size and patient had been asymptomatic and the nodules were nonspecific. Medical history includes benign essential hypertension, hyperlipidemia, and diabetes mellitus. Patient was brought into the emergency department by her daughter on 11/08/2019 in an ambulance for evaluation of mental status, concern for urinary tract infection, not feeling well, weak, fatigued and decreased oral intake. De nied any fevers, patient is having abdominal discomfort and tenderness in the right upper quadrant and lower abdominal discomfort. Her last bowel movement was the day before presentation. CT of the abdomen and pelvis without contrast showed patchy densities within the lung bases, cardiomegaly, gallstones present in the gallbladder with some air within the gallbladder, consideration for emphysematous cholecystitis. EKG showed atrial fibrillation with mildly elevated ventricular rate for which patient was started on Cardizem drip. Ultrasound of the gallbladder showed extensive shadowing in the gallbladder, gallstones in the gallbladder neck, and small amount of free fluid adjacent to the liver, with possibility of a gangrenous gallbladder. Patient is being kept nothing by mouth, surgical consultation was requested and patient is being considered for laparoscopic cholecystectomy today. No cough or congestion, no fever or chills, room air pulse ox 97%, hemodynamically she is stable. Her labs showed white blood cell count of 15.7, hemoglobin is 10.7, d-dimer is 3.9, sodium is 135, potassium is 2.5, chloride is 93, CO2 31, BUN is 75, creatinine is 1.59, plasma lactic acid is 1.3, total bilirubin is 1.4, ferritin is 244, AST is 82, ALT is 28, alk phos is 113, LDH is 747, CRP is 394, proBNP is 4700, broke acetone is elevated at 1.27 and patient has been started on empiric antibiotics, in the form of Levaquin, and Flagyl, patient was given IV fluid bolus, and IV hydration overnight, and on today's labs her renal profile is slightly improved, however she still hypokalemic, which is being replaced per protocol. Urinalysis was negative for any sign of infection. She was started on IV Lasix by cardiology, for elevated proBNP and today's chest x-ray showing vascular prominence, evidence of fluid volume overload. On 11/10/2019 patient seen in follow-up on selective care unit, today is postoperative day 1, status post laparoscopic cholecystectomy for acute gangrenous cholecystitis. Patient is doing well today, she is awake and alert, she is in no acute distress, her pain is reasonably controlled, complains of nausea or vomiting, no shortness of breath or chest pain, she is on 5 L of oxygen and the pulse ox of 98%, hemodynamically stable, her breathing is comfortable, she is afebrile, she is on empiric antibiotics in the form of Levaquin and Flagyl. She remains in atrial fibrillation, with a controlled rate currently at a rate of 62 BPM. She is on prophylactic dose of Lovenox for anticoagulation, cardiology is following, and patient is also receiving IV Lasix for acute exacerbation of CHF, echocardiogram has been completed, and is pending at this time, she has been afebrile. Patient will be started on full liquid diet today. She is in negative fluid balance, today's labs have been reviewed, showing white blood cell count 12.8, hemoglobin of 10.3, sodium of 143, potassium is 2.9, chloride is 104, B1 of 61 and creatinine of 1.51. On 11/11/2019 patient seen in follow-up on selective care unit, this is postoperative day 2, status post upper scopic cholecystectomy for acute gangrenous cholecystitis, patient is awake and alert, oriented 3, she still has abdominal soreness, and surgical incisional pain, no acute distress. Abdomen is sore, but soft, she still has right-sided JOSE ENRIQUE drain in place with small amount of serosanguineous output, in the 70 mL over last 24 hours. Denies any nausea or vomiting, she has been started on clear liquid diet yesterday, tolerating it well so far. No new labs today. No fever or chills, blood and sputum cultures have shown no growth, she is on Levaquin and Flagyl for antibiotic coverage. Diuretics have been transitioned to oral Lasix twice a day. Patient is -516 mL fluid balance over last 24 hours. No worsening dyspnea, she is satting 99% on 3 L, she is working on incentive spirometer. Objective - Vital Signs Vital signs: Vital Signs Temp 98.8 F 11/11/19 08:50 Pulse 105 H 11/11/19 08:50 Resp 18 11/11/19 08:50 BP 132/59 11/11/19 08:50 Pulse Ox 99 11/11/19 08:50 Intake & Output 11/10/19 11/11/19 11/11/19 18:59 06:59 18:59 Intake Total 816.005 8260 360 Output Total 1075 1570 Balance -478.333 -38 360 Intake: Intake, IV Titration 116.667 350 Amount Diltiazem 125 mg In 116.667 Sodium Chloride 0.9% 100 ml @ 5 MG/HR 5 mls/hr IV .Q24H [facility] Rx#:[id number] Levofloxacin 750Mg-D5w 150 Pmx 750 mg In Dextrose/ Water 1 150ml.bag @ 100 mls/hr IVPB Q48H [facility] Rx#: [id number] metroNIDAZOLE-NS PMX 500 200 mg In Saline 1 100ml.bag @ 100 mls/hr IVPB Q6HR [facility] Rx#:[id number] Oral 480 1182 360 Output: Drainage 50 20 Right Abdomen 50 20 Urine 1025 1550 Uretheral (Ramos) 225 600 Other: Voiding Method Diaper Indwelling Catheter Indwelling Catheter Incontinent - Exam GENERAL EXAM: Alert, very pleasant, 83-year-old white female, on 5 L of oxygen with a pulse ox of 98%, seen in the emergency department resting on the gurney, oriented 3, does not appear to be in any acute distress HEAD: Normocephalic/atraumatic. EYES: Normal reaction of pupils, equal size. Conjunctiva pink, sclera white. NOSE: Clear with pink turbinates. THROAT: No erythema or exudates. NECK: No masses, no JVD, no thyroid enlargement, no adenopathy. CHEST: No chest wall deformity. Symmetrical expansion. LUNGS: Equal air entry with no crackles, wheeze, rhonchi or dullness. CVS: Irregular rate and rhythm, normal S1 and S2, no gallops, no murmurs, no rubs ABDOMEN: Soft, abdominal tenderness in the right upper quadrant, laparoscopic surgical incisions are clean dry and intact, right upper quadrant JOSE ENRIQUE drain present, with small amount of serosanguineous output compressed and draining. No hepatosplenomegaly, normal bowel sounds, no guarding or rigidity. EXTREMITIES: No clubbing, no edema, no cyanosis, 2+ pulses and upper and lower extremities. MUSCULOSKELETAL: Muscle strength and tone normal. SPINE: No scoliosis or deformity SKIN: No rashes CENTRAL NERVOUS SYSTEM: Alert and oriented -3. No focal deficits, tone is normal in all 4 extremities. PSYCHIATRIC: Alert and oriented -3. Appropriate affect. Intact judgment and insight. - Labs CBC & Chem 7: 11/10/19 08:13 11/10/19 17:21 Labs: Abnormal Lab Results - Last 24 Hours (Table) 11/10/19 11/10/19 11/10/19 Range/Units 11:10 16:10 20:13 POC Glucose (mg/dL) 174 H 121 H 144 H (75-99) mg/dL 11/11/19 Range/Units 06:06 POC Glucose (mg/dL) 111 H (75-99) mg/dL Microbiology - Last 24 Hours (Table) 11/09/19 17:25 Gram Stain - Final Sputum Sputum Culture - Final 11/08/19 19:35 Blood Culture - Preliminary Blood No Growth after 48 hours Assessment and Plan Plan: Assessment: #1. Acute abdominal pain, related to possibility of gangrenous cholecystitis, ultrasound of the abdomen revealed gallstones at the gallbladder neck, air in the gallbladder wall. Status post laparoscopic cholecystectomy, postoperative day 2 #2. Weakness, fatigue, dehydration related to the above, improved #3. Acute kidney injury related to ATN, slightly improved with IV hydration #4. Hypokalemia, serum potassium is being replaced per protocol, likely related to dehydration, poor oral intake and diuretics #5. New onset atrial fibrillation with RVR, currently better controlled #6. Vascular prominence and infiltrates seen on the chest x-ray, possibility of acute exacerbation of CHF with unknown EF #7. History of mild intermittent bronchial asthma, stable #8. History of multiple nonspecific pulmonary nodules have been under surveillance since July [address] Ambrocio, have not shown this can increase the patient has been asymptomatic #9. Hypertension #10. Hyperlipidemia #11. Diabetes mellitus type II #12. History of difficulty hearing Plan: Continue current medical treatment, continue oral diuretics, we will order follow-up blood work for today and tomorrow. Hemodynamically stable, afebrile, she remains on empiric antibiotics culture data remains negative to date. Continue encouraging deep breathing and coughing, no worsening dyspnea, wean FiO2. Today's chest x-ray has been reviewed showing stable findings of small to tiny bilateral pleural effusions and bibasilar atelectasis. Encourage incentive spirometry use. Increase activity as tolerated. Will follow I performed a history & physical examination of the patient and discussed their management with my nurse practitioner, Saumya Juan. I reviewed the nurse practitioner's note and agree with the documented findings and plan of care. Lung sounds are positive for diminished breath sounds. The findings and the impression was discussed with the patient. I attest to the documentation by the nurse practitioner. Time with Patient: Less than 30
[2019-11-11 11:23] LABS: Glucose,Whole Blood 170 mg/dL (75-99)
[2019-11-11 12:19] LABS: HCT 33.8 % (34.0-46.0); HGB 11.2 gm/dL (11.4-16.0); MCH 29.5 pg (25.0-35.0); MCHC 33.2 g/dL (31.0-37.0); MCV 89.1 fL (80.0-100.0); Mean Platelet Volume 7.9; Platelet Count 228 k/uL (150-450); RDW 14.8 % (11.5-15.5); WBC 13.5 k/uL (3.8-10.6)
--- NOTE | 2019-11-11 12:21 | P.PN ---
Subjective Progress Note Date: 11/11/19 This is an 83-year-old female patient with history of hypertension, [id number] diabetes, hyperlipidemia, who presented to the hospital with symptoms of fatigue and generalized malaise, body aches, on presentation here she was found to be in atrial fibrillation with a rapid ventricular response. Patient also underwent a CAT scan of the abdomen and pelvis which revealed a gangrenous gallbladder for which the patient underwent a laparoscopic cholecystectomy yesterday. She was seen and examined this morning, blood pressure 110/60 with a heart rate in the 90s, 98% on 5 L of oxygen. Blood cell count 12.8, hemoglobin 10.3, platelet count 194. Sodium 143, potassium 2.9, BUN 61, creatinine 1.5. Patient is on IV Lasix and diuresed well through the night last night. Calcitonin level was also noted to be elevated at 1.27. Repeat chest x-ray performed yesterday did show a resolving congestive heart failure. 11/11/2019 Patient seen and examined this morning, awake alert and oriented, she still has some tenderness in the abdomen. JOSE ENRIQUE drain remains in place. Blood pressure 130/56, heart rate 90. Continues to be in atrial fibrillation with a heart rate of 90, increase the dose of beta pancho today for more optimal heart rate control, at times it goes up into the 1 teens 120 range. She is still on IV Lasix which we will discontinue and start the patient on Lasix 40 mg by mouth t wice a day. Her chest x-ray from today was stable. Objective - Vital Signs Vital signs: Vital Signs Temp 98.8 F 11/11/19 08:50 Pulse 105 H 11/11/19 08:50 Resp 18 11/11/19 08:50 BP 132/59 11/11/19 08:50 Pulse Ox 99 11/11/19 08:50 Intake & Output 11/10/19 11/11/19 11/11/19 18:59 06:59 18:59 Intake Total 735.491 4208 360 Output Total 1075 1570 Balance -478.333 -38 360 Intake: Intake, IV Titration 116.667 350 Amount Diltiazem 125 mg In 116.667 Sodium Chloride 0.9% 100 ml @ 5 MG/HR 5 mls/hr IV .Q24H [facility] Rx#:[id number] Levofloxacin 750Mg-D5w 150 Pmx 750 mg In Dextrose/ Water 1 150ml.bag @ 100 mls/hr IVPB Q48H [facility] Rx#: [id number] metroNIDAZOLE-NS PMX 500 200 mg In Saline 1 100ml.bag @ 100 mls/hr IVPB Q6HR [facility] Rx#:[id number] Oral 480 1182 360 Output: Drainage 50 20 Right Abdomen 50 20 Urine 1025 1550 Uretheral (Ramos) 225 600 Other: Voiding Method Diaper Indwelling Catheter Indwelling Catheter Incontinent - Exam GENERAL EXAM: Alert, very pleasant, 83-year-old white female, on 5l, with a pulse ox of 98%. HEAD: Normocephalic/atraumatic. EYES: Normal reaction of pupils, equal size. Conjunctiva pink, sclera white. NOSE: Clear with pink turbinates. THROAT: No erythema or exudates. NECK: No masses, no JVD, no thyroid enlargement, no adenopathy. CHEST: No chest wall deformity. Symmetrical expansion. LUNGS: Equal air entry with no crackles, wheeze, rhonchi or dullness. CVS: Irregular rate and rhythm, normal S1 and S2, no gallops, no murmurs, no rubs ABDOMEN: Soft, mild abdominal tenderness in the right upper quadrant. No hepatosplenomegaly, normal bowel sounds, no guarding or rigidity. EXTREMITIES: No clubbing, no edema, no cyanosis, 2+ pulses and upper and lower extremities. MUSCULOSKELETAL: Muscle strength and tone normal. SPINE: No scoliosis or deformity SKIN: No rashes CENTRAL NERVOUS SYSTEM: Alert and oriented -3. No focal deficits, tone is normal in all 4 extremities. PSYCHIATRIC: Alert and oriented -3. Appropriate affect. Intact judgment and insight. - Labs CBC & Chem 7: 11/10/19 08:13 11/10/19 17:21 Labs: Abnormal Lab Results - Last 24 Hours (Table) 11/10/19 11/10/19 11/11/19 Range/Units 16:10 20:13 06:06 POC Glucose (mg/dL) 121 H 144 H 111 H (75-99) mg/dL 11/11/19 Range/Units 11:22 POC Glucose (mg/dL) 170 H (75-99) mg/dL Microbiology - Last 24 Hours (Table) 11/09/19 17:25 Gram Stain - Final Sputum Sputum Culture - Final 11/08/19 19:35 Blood Culture - Preliminary Blood No Growth after 48 hours Assessment and Plan Plan: Assessment and plan: #1. Acute abdominal pain, computed tomography scan revealed a gangrenous gallbladder, status post laparoscopic cholecystectomy #2. Weakness, fatigue, dehydration related to the above #3. Acute kidney injury related to ATN #4. Hypokalemia #5. New onset atrial fibrillation with RVR, persistent #6. Congestive heart failure, LV function unknown #7. History of mild intermittent bronchial asthma #8. History of multiple nonspecific pulmonary nodules #9. Hypertension #10. Hyperlipidemia #11. Diabetes mellitus type II #12 possible pneumonia Plan We will increase the dose of beta pancho for more optimal heart rate control, discontinue the IV Lasix and change patient over to oral diuretics. Initiate oral anticoagulation. DNP note has been reviewed, I agree with a documented findings and plan of care. Patient was seen and examined.
--- NOTE | 2019-11-11 12:35 | P.PN ---
Progress Note - Text Progress Note Date: 11/11/19 Received a call back from Catrachita Hogan the nurse practitioner for surgery, she gave clearance to initiate anticoagulation not on Eliquis, 2 half milligrams one tablet by mouth twice a day from this evening. Cleared by surgery for anticoagulation. DNP note has been reviewed, I agree with a documented findings and plan of care. Patient was seen and examined.
--- NOTE | 2019-11-11 13:16 | P.PN ---
Subjective Progress Note Date: 11/11/19 CHIEF COMPLAINT: Gangrenous gallbladder HISTORY OF PRESENT ILLNESS: Patient is status post laparoscopic cholecystectomy. Postop day #2. Patient examined at the bedside with Dr. Chin. Patient is awake and alert. She denies abdominal pain. PHYSICAL EXAM: VITAL SIGNS: Reviewed. GENERAL: Well-developed in no acute distress. HEENT: No sclera icterus. Extraocular movements grossly intact. Moist buccal mucosa. Head is atraumatic, normocephalic. ABDOMEN: Soft. Nondistended. Surgical site clean dry and intact. JOSE ENRIQUE drain to right lower quadrant with serosanguineous drainage NEUROLOGIC: Alert and oriented x 2. ASSESSMENT: 1. Acute gangrenous cholecystitis PLAN: Continue IV antibiotics Monitor drainage from JOSE ENRIQUE drain Advance diet Okay to begin anticoagulation from a surgical standpoint Nurse practitioner note has been reviewed by physician. Signing provider agrees with the documented findings, assessment, and plan of care. Objective - Vital Signs Vital signs: Vital Signs Temp 98.8 F 11/11/19 08:50 Pulse 105 H 11/11/19 08:50 Resp 18 11/11/19 08:50 BP 132/59 11/11/19 08:50 Pulse Ox 99 11/11/19 08:50 Intake & Output 11/10/19 11/11/19 11/11/19 18:59 06:59 18:59 Intake Total 599.133 2824 720 Output Total 1075 1570 Balance -478.333 -38 720 Intake: Intake, IV Titration 116.667 350 Amount Diltiazem 125 mg In 116.667 Sodium Chloride 0.9% 100 ml @ 5 MG/HR 5 mls/hr IV .Q24H [facility] Rx#:[id number] Levofloxacin 750Mg-D5w 150 Pmx 750 mg In Dextrose/ Water 1 150ml.bag @ 100 mls/hr IVPB Q48H [facility] Rx#: [id number] metroNIDAZOLE-NS PMX 500 200 mg In Saline 1 100ml.bag @ 100 mls/hr IVPB Q6HR [facility] Rx#:[id number] Oral 480 1182 720 Output: Drainage 50 20 Right Abdomen 50 20 Urine 1025 1550 Uretheral (Ramos) 225 600 Other: Voiding Method Diaper Indwelling Catheter Indwelling Catheter Incontinent - Labs CBC & Chem 7: 11/11/19 11:25 11/10/19 17:21 Labs: Abnormal Lab Results - Last 24 Hours (Table) 11/10/19 11/10/19 11/11/19 Range/Units 16:10 20:13 06:06 WBC (3.8-10.6) k/uL Hgb (11.4-16.0) gm/dL Hct (34.0-46.0) % POC Glucose (mg/dL) 121 H 144 H 111 H (75-99) mg/dL 11/11/19 11/11/19 Range/Units 11:22 11:25 WBC 13.5 H (3.8-10.6) k/uL Hgb 11.2 L (11.4-16.0) gm/dL Hct 33.8 L (34.0-46.0) % POC Glucose (mg/dL) 170 H (75-99) mg/dL Microbiology - Last 24 Hours (Table) 11/09/19 17:25 Gram Stain - Final Sputum Sputum Culture - Final 11/08/19 19:35 Blood Culture - Preliminary Blood No Growth after 48 hours
[2019-11-11 13:40] LABS: Calcium 8.6 mg/dL (8.4-10.2); Potassium 2.9 mmol/L (3.5-5.1)
[2019-11-11] MEDS ORDERED: Potassium Replacement Protocol 1 EACH MISC MISCELLANE PRN (15:33)
[2019-11-11] MEDS: POTASSIUM CHLORIDE ER 20 MEQ TAB.ER PO SCH ×3 (15:40→18:58)
--- NOTE | 2019-11-11 16:21 | P.PN ---
Subjective Progress Note Date: 11/11/19 Objective - Vital Signs Vital signs: Vital Signs Temp 98.8 F 11/11/19 08:50 Pulse 105 H 11/11/19 08:50 Resp 18 11/11/19 08:50 BP 132/59 11/11/19 08:50 Pulse Ox 99 11/11/19 08:50 Intake & Output 11/10/19 11/11/19 11/11/19 18:59 06:59 18:59 Intake Total 697.899 2359 720 Output Total 1075 1570 500 Balance -478.333 -38 220 Intake: Intake, IV Titration 116.667 350 Amount Diltiazem 125 mg In 116.667 Sodium Chloride 0.9% 100 ml @ 5 MG/HR 5 mls/hr IV .Q24H [facility] Rx#:[id number] Levofloxacin 750Mg-D5w 150 Pmx 750 mg In Dextrose/ Water 1 150ml.bag @ 100 mls/hr IVPB Q48H [facility] Rx#: [id number] metroNIDAZOLE-NS PMX 500 200 mg In Saline 1 100ml.bag @ 100 mls/hr IVPB Q6HR [facility] Rx#:[id number] Oral 480 1182 720 Output: Drainage 50 20 Right Abdomen 50 20 Urine 1025 1550 500 Uretheral (Ramos) 225 600 Other: Voiding Method Diaper Indwelling Catheter Indwelling Catheter Incontinent - Constitutional General appearance: Present: no acute distress - EENT ENT: Present: hard of hearing - Respiratory Respiratory: bilateral: CTA - Cardiovascular Rhythm: irregularly irregular - Gastrointestinal General gastrointestinal: Present: decreased bowel sounds, tenderness (plus JOSE ENRIQUE drain) - Integumentary Integumentary: Present: normal - Labs CBC & Chem 7: 11/11/19 11:25 11/11/19 11:25 Labs: Abnormal Lab Results - Last 24 Hours (Table) 11/10/19 11/10/19 11/11/19 Range/Units 16:10 20:13 06:06 WBC (3.8-10.6) k/uL Hgb (11.4-16.0) gm/dL Hct (34.0-46.0) % Sodium (137-145) mmol/L Potassium (3.5-5.1) mmol/L BUN (7-17) mg/dL Creatinine (0.52-1.04) mg/dL Glucose (74-99) mg/dL POC Glucose (mg/dL) 121 H 144 H 111 H (75-99) mg/dL 11/11/19 11/11/19 11/11/19 Range/Units 11:22 11:25 11:25 WBC 13.5 H (3.8-10.6) k/uL Hgb 11.2 L (11.4-16.0) gm/dL Hct 33.8 L (34.0-46.0) % Sodium 136 L (137-145) mmol/L Potassium 2.9 L (3.5-5.1) mmol/L BUN 50 H (7-17) mg/dL Creatinine 1.06 H (0.52-1.04) mg/dL Glucose 158 H (74-99) mg/dL POC Glucose (mg/dL) 170 H (75-99) mg/dL Microbiology - Last 24 Hours (Table) 11/09/19 17:25 Gram Stain - Final Sputum Sputum Culture - Final 11/08/19 19:35 Blood Culture - Preliminary Blood No Growth after 48 hours Assessment and Plan (1) Cholecystitis Narrative/Plan: POD # 2 continue per surgery clear liquid diet on flagyl and levaquin, Current Visit: Yes Status: Acute Code(s): K81.9 - CHOLECYSTITIS, UNSPECIFIED SNOMED Code(s): 81973052 (2) Atrial fibrillation Narrative/Plan: monitor and titrate as needed on eliquis, severely dilated left atrium Current Visit: Yes Status: Acute Code(s): I48.91 - UNSPECIFIED ATRIAL FIBRILLATION SNOMED Code(s): 10998375 (3) Dehydration Current Visit: Yes Status: Acute Code(s): E86.0 - DEHYDRATION SNOMED Code(s): 54220163 (4) Hypokalemia Narrative/Plan: replete per protocol Current Visit: Yes Status: Acute Code(s): E87.6 - HYPOKALEMIA SNOMED Code(s): 35080777
[2019-11-11 16:23] LABS: Glucose,Whole Blood 160 mg/dL (75-99)
[2019-11-11 19:48] LABS: Glucose,Whole Blood 174 mg/dL (75-99)
[2019-11-11] MEDS: APIXABAN 2.5 MG TABLET PO SCH (20:38)
[2019-11-11] MEDS: ACETAMINOPHEN TAB 325 MG TAB PO PRN (20:39)
[2019-11-12] MEDS: metroNIDAZOLE-NS PMX 500 MG in SALINE 1 100ML.BAG IVPB SCH ×2 (06:08→11:50)
[2019-11-12 06:09] LABS: Glucose,Whole Blood 220 mg/dL (75-99)
[2019-11-12 06:28] LABS: Basophils % (A) 0 %; Eosinophils # (A) 0.1 k/uL (0-0.7); Eosinophils % (A) 1 %; HCT 33.8 % (34.0-46.0); HGB 11.4 gm/dL (11.4-16.0); Lymphocytes # (A) 0.9 k/uL (1.0-4.8); Lymphocytes % (A) 8 %; MCH 30.5 pg (25.0-35.0); MCHC 33.8 g/dL (31.0-37.0); MCV 90.3 fL (80.0-100.0); Mean Platelet Volume 7.5; Monocytes # (A) 0.5 k/uL (0-1.0); Monocytes % (A) 4 %; Neutrophils # (A) 10.1 k/uL (1.3-7.7); Neutrophils % (A) 85 %; Platelet Count 318 k/uL (150-450); RBC 3.75 m/uL (3.80-5.40); WBC 11.8 k/uL (3.8-10.6)
[2019-11-12 06:37] LABS: Calcium 8.9 mg/dL (8.4-10.2); Potassium 3.3 mmol/L (3.5-5.1)
[2019-11-12] MEDS: INSULIN ASPART (NovoLOG) 100 UNIT/ML VIAL SQ SCH ×3 (06:58→17:36)
[2019-11-12] MEDS ORDERED: Potassium Replacement Protocol 1 EACH MISC MISCELLANE PRN ×2 (09:46→18:07)
[2019-11-12] MEDS: ATORVASTATIN 40 MG TAB PO SCH (09:49)
[2019-11-12] MEDS: FUROSEMIDE 40 MG TAB PO SCH ×2 (09:49→17:37)
[2019-11-12] MEDS: METOPROLOL TARTRATE 25 MG TAB PO SCH (09:49)
[2019-11-12] MEDS: APIXABAN 2.5 MG TABLET PO SCH ×2 (09:50→20:13)
[2019-11-12] MEDS: PANTOPRAZOLE 40 MG TABLET PO SCH (09:50)
[2019-11-12] MEDS: POTASSIUM CHLORIDE ER 20 MEQ TAB.ER PO SCH ×2 (10:05→11:52)
--- NOTE | 2019-11-12 11:07 | P.PN ---
Subjective Progress Note Date: 11/12/19 CHIEF COMPLAINT: Gangrenous gallbladder HISTORY OF PRESENT ILLNESS: Patient is status post laparoscopic cholecystectomy. Postop day #3. Patient examined at the bedside with Dr. Chin. Patient is awake and alert. She denies abdominal pain. Tolerating diet. Patient about to get up to the commode with PT to have a bowel movement. PHYSICAL EXAM: VITAL SIGNS: Reviewed. GENERAL: Well-developed in no acute distress. HEENT: No sclera icterus. Extraocular movements grossly intact. Moist buccal mucosa. Head is atraumatic, normocephalic. ABDOMEN: Soft. Nondistended. Surgical site clean dry and intact. JOSE ENRIQUE drain to right lower quadrant with serosanguineous drainage NEUROLOGIC: Alert and oriented x 2. ASSESSMENT: 1. Acute gangrenous cholecystitis PLAN: Continue IV antibiotics Monitor drainage from JOSE ENRIQUE drain Advance diet to a soft diet Pain control Nurse practitioner note has been reviewed by physician. Signing provider agrees with the documented findings, assessment, and plan of care. Objective - Vital Signs Vital signs: Vital Signs Temp 98.2 F 11/12/19 04:01 Pulse 68 11/12/19 04:01 Resp 20 11/12/19 04:01 BP 135/73 11/12/19 04:01 Pulse Ox 96 11/12/19 04:01 Intake & Output 11/11/19 11/12/19 11/12/19 18:59 06:59 18:59 Intake Total 1200 802 340 Output Total 500 1015 Balance 700 -213 340 Weight 104.9 kg Intake: Intake, IV Titration 100 100 Amount metroNIDAZOLE-NS PMX 500 100 100 mg In Saline 1 100ml.bag @ 100 mls/hr IVPB Q6HR [facility] Rx#:[id number] Oral 1200 702 240 Output: Drainage 15 Right Abdomen 15 Urine 500 1000 Uretheral (Ramos) 700 Other: Voiding Method Indwelling Catheter Indwelling Catheter - Labs CBC & Chem 7: 11/12/19 05:52 11/12/19 05:52 Labs: Abnormal Lab Results - Last 24 Hours (Table) 11/11/19 11/11/19 11/11/19 Range/Units 11:22 11:25 11:25 WBC 13.5 H (3.8-10.6) k/uL RBC (3.80-5.40) m/uL Hgb 11.2 L (11.4-16.0) gm/dL Hct 33.8 L (34.0-46.0) % Neutrophils # (1.3-7.7) k/uL Lymphocytes # (1.0-4.8) k/uL Sodium 136 L (137-145) mmol/L Potassium 2.9 L (3.5-5.1) mmol/L Chloride (98-107) mmol/L BUN 50 H (7-17) mg/dL Creatinine 1.06 H (0.52-1.04) mg/dL Glucose 158 H (74-99) mg/dL POC Glucose (mg/dL) 170 H (75-99) mg/dL 11/11/19 11/11/19 11/12/19 Range/Units 16:22 19:46 05:52 WBC 11.8 H (3.8-10.6) k/uL RBC 3.75 L (3.80-5.40) m/uL Hgb (11.4-16.0) gm/dL Hct 33.8 L (34.0-46.0) % Neutrophils # 10.1 H (1.3-7.7) k/uL Lymphocytes # 0.9 L (1.0-4.8) k/uL Sodium (137-145) mmol/L Potassium (3.5-5.1) mmol/L Chloride (98-107) mmol/L BUN (7-17) mg/dL Creatinine (0.52-1.04) mg/dL Glucose (74-99) mg/dL POC Glucose (mg/dL) 160 H 174 H (75-99) mg/dL 11/12/19 11/12/19 Range/Units 05:52 06:04 WBC (3.8-10.6) k/uL RBC (3.80-5.40) m/uL Hgb (11.4-16.0) gm/dL Hct (34.0-46.0) % Neutrophils # (1.3-7.7) k/uL Lymphocytes # (1.0-4.8) k/uL Sodium (137-145) mmol/L Potassium 3.3 L (3.5-5.1) mmol/L Chloride 97 L (98-107) mmol/L BUN 46 H (7-17) mg/dL Creatinine 1.35 H (0.52-1.04) mg/dL Glucose 166 H (74-99) mg/dL POC Glucose (mg/dL) 220 H (75-99) mg/dL Microbiology - Last 24 Hours (Table) 11/08/19 19:35 Blood Culture - Preliminary Blood No Growth after 72 hours 11/09/19 17:25 Gram Stain - Final Sputum Sputum Culture - Final
[2019-11-12 11:49] LABS: Glucose,Whole Blood 151 mg/dL (75-99)
[2019-11-12] MEDS: ACETAMINOPHEN TAB 325 MG TAB PO PRN (11:51)
--- NOTE | 2019-11-12 12:02 | P.PN ---
Subjective Progress Note Date: 11/12/19 Principal diagnosis: Acute abdominal pain, gangrenous cholecystitis 83-year-old white female patient with past medical history of mild intermittent bronchial asthma, history of nonspecific pulmonary nodules for which she follows with Dr. Ambrocio in the pulmonary clinic, and there were monitored for a long period of time since July 2015, have not shown significant change in size and patient had been asymptomatic and the nodules were nonspecific. Medical history includes benign essential hypertension, hyperlipidemia, and diabetes mellitus. Patient was brought into the emergency department by her daughter on 11/08/2019 in an ambulance for evaluation of mental status, concern for urinary tract infection, not feeling well, weak, fatigued and decreased oral intake. De nied any fevers, patient is having abdominal discomfort and tenderness in the right upper quadrant and lower abdominal discomfort. Her last bowel movement was the day before presentation. CT of the abdomen and pelvis without contrast showed patchy densities within the lung bases, cardiomegaly, gallstones present in the gallbladder with some air within the gallbladder, consideration for emphysematous cholecystitis. EKG showed atrial fibrillation with mildly elevated ventricular rate for which patient was started on Cardizem drip. Ultrasound of the gallbladder showed extensive shadowing in the gallbladder, gallstones in the gallbladder neck, and small amount of free fluid adjacent to the liver, with possibility of a gangrenous gallbladder. Patient is being kept nothing by mouth, surgical consultation was requested and patient is being considered for laparoscopic cholecystectomy today. No cough or congestion, no fever or chills, room air pulse ox 97%, hemodynamically she is stable. Her labs showed white blood cell count of 15.7, hemoglobin is 10.7, d-dimer is 3.9, sodium is 135, potassium is 2.5, chloride is 93, CO2 31, BUN is 75, creatinine is 1.59, plasma lactic acid is 1.3, total bilirubin is 1.4, ferritin is 244, AST is 82, ALT is 28, alk phos is 113, LDH is 747, CRP is 394, proBNP is 4700, broke acetone is elevated at 1.27 and patient has been started on empiric antibiotics, in the form of Levaquin, and Flagyl, patient was given IV fluid bolus, and IV hydration overnight, and on today's labs her renal profile is slightly improved, however she still hypokalemic, which is being replaced per protocol. Urinalysis was negative for any sign of infection. She was started on IV Lasix by cardiology, for elevated proBNP and today's chest x-ray showing vascular prominence, evidence of fluid volume overload. On 11/10/2019 patient seen in follow-up on selective care unit, today is postoperative day 1, status post laparoscopic cholecystectomy for acute gangrenous cholecystitis. Patient is doing well today, she is awake and alert, she is in no acute distress, her pain is reasonably controlled, complains of nausea or vomiting, no shortness of breath or chest pain, she is on 5 L of oxygen and the pulse ox of 98%, hemodynamically stable, her breathing is comfortable, she is afebrile, she is on empiric antibiotics in the form of Levaquin and Flagyl. She remains in atrial fibrillation, with a controlled rate currently at a rate of 62 BPM. She is on prophylactic dose of Lovenox for anticoagulation, cardiology is following, and patient is also receiving IV Lasix for acute exacerbation of CHF, echocardiogram has been completed, and is pending at this time, she has been afebrile. Patient will be started on full liquid diet today. She is in negative fluid balance, today's labs have been reviewed, showing white blood cell count 12.8, hemoglobin of 10.3, sodium of 143, potassium is 2.9, chloride is 104, B1 of 61 and creatinine of 1.51. On 11/11/2019 patient seen in follow-up on selective care unit, this is postoperative day 2, status post upper scopic cholecystectomy for acute gangrenous cholecystitis, patient is awake and alert, oriented 3, she still has abdominal soreness, and surgical incisional pain, no acute distress. Abdomen is sore, but soft, she still has right-sided JOSE ENRIQUE drain in place with small amount of serosanguineous output, in the 70 mL over last 24 hours. Denies any nausea or vomiting, she has been started on clear liquid diet yesterday, tolerating it well so far. No new labs today. No fever or chills, blood and sputum cultures have shown no growth, she is on Levaquin and Flagyl for antibiotic coverage. Diuretics have been transitioned to oral Lasix twice a day. Patient is -516 mL fluid balance over last 24 hours. No worsening dyspnea, she is satting 99% on 3 L, she is working on incentive spirometer. On 11/12/2019 patient seen in follow-up on selective care unit, this postoperative day 3, status post laparoscopic cholecystectomy for acute gangrenous cholecystitis. Patient is doing well, she is up in the chair today, she is on room air, with a pulse ox of 99%, no worsening dyspnea, she is working on incentive spirometer, he'll have some abdominal soreness, which is fairly well controlled with oral medications, no nausea or vomiting, abdomen is soft, he continues on the antibiotics in form of Levaquin and Flagyl. Blood and sputum cultures have shown no growth, afebrile. Minimal output from the JOSE ENRIQUE in the right abdomen. Patient continues on oral Lasix, she is positive for 187 mL over the last 24 hours. No worsening dyspnea, we will order follow-up chest x- ray for tomorrow. Patient has been tolerating a full liquid diet, her diet is being advanced to soft for lunch. Objective - Vital Signs Vital signs: Vital Signs Temp 99.3 F 11/12/19 08:30 Pulse 105 H 11/12/19 08:30 Resp 18 11/12/19 08:30 BP 129/61 11/12/19 08:30 Pulse Ox 99 11/12/19 08:30 Intake & Output 11/11/19 11/12/19 11/12/19 18:59 06:59 18:59 Intake Total 1200 802 340 Output Total 500 1015 Balance 700 -213 340 Weight 104.9 kg Intake: Intake, IV Titration 100 100 Amount metroNIDAZOLE-NS PMX 500 100 100 mg In Saline 1 100ml.bag @ 100 mls/hr IVPB Q6HR [facility] Rx#:[id number] Oral 1200 702 240 Output: Drainage 15 Right Abdomen 15 Urine 500 1000 Uretheral (Ramos) 700 Other: Voiding Method Indwelling Catheter Indwelling Catheter Indwelling Catheter - Exam GENERAL EXAM: Alert, very pleasant, 83-year-old white female, on room air with a pulse ox 99%, up in the recliner, in no acute distress HEAD: Normocephalic/atraumatic. EYES: Normal reaction of pupils, equal size. Conjunctiva pink, sclera white. NOSE: Clear with pink turbinates. THROAT: No erythema or exudates. NECK: No masses, no JVD, no thyroid enlargement, no adenopathy. CHEST: No chest wall deformity. Symmetrical expansion. LUNGS: Equal air entry with no crackles, wheeze, rhonchi or dullness. CVS: Irregular rate and rhythm, normal S1 and S2, no gallops, no murmurs, no rubs ABDOMEN: Soft, abdominal tenderness in the right upper quadrant, laparoscopic surgical incisions are clean dry and intact, right upper quadrant JOSE ENRIQUE drain pres ent, with small amount of serosanguineous output compressed and draining. No hepatosplenomegaly, normal bowel sounds, no guarding or rigidity. EXTREMITIES: No clubbing, no edema, no cyanosis, 2+ pulses and upper and lower extremities. MUSCULOSKELETAL: Muscle strength and tone normal. SPINE: No scoliosis or deformity SKIN: No rashes CENTRAL NERVOUS SYSTEM: Alert and oriented -3. No focal deficits, tone is normal in all 4 extremities. PSYCHIATRIC: Alert and oriented -3. Appropriate affect. Intact judgment and insight. - Labs CBC & Chem 7: 11/12/19 05:52 11/12/19 05:52 Labs: Abnormal Lab Results - Last 24 Hours (Table) 11/11/19 11/11/19 11/11/19 Range/Units 11:25 11:25 16:22 WBC 13.5 H (3.8-10.6) k/uL RBC (3.80-5.40) m/uL Hgb 11.2 L (11.4-16.0) gm/dL Hct 33.8 L (34.0-46.0) % Neutrophils # (1.3-7.7) k/uL Lymphocytes # (1.0-4.8) k/uL Sodium 136 L (137-145) mmol/L Potassium 2.9 L (3.5-5.1) mmol/L Chloride (98-107) mmol/L BUN 50 H (7-17) mg/dL Creatinine 1.06 H (0.52-1.04) mg/dL Glucose 158 H (74-99) mg/dL POC Glucose (mg/dL) 160 H (75-99) mg/dL 11/11/19 11/12/19 11/12/19 Range/Units 19:46 05:52 05:52 WBC 11.8 H (3.8-10.6) k/uL RBC 3.75 L (3.80-5.40) m/uL Hgb (11.4-16.0) gm/dL Hct 33.8 L (34.0-46.0) % Neutrophils # 10.1 H (1.3-7.7) k/uL Lymphocytes # 0.9 L (1.0-4.8) k/uL Sodium (137-145) mmol/L Potassium 3.3 L (3.5-5.1) mmol/L Chloride 97 L (98-107) mmol/L BUN 46 H (7-17) mg/dL Creatinine 1.35 H (0.52-1.04) mg/dL Glucose 166 H (74-99) mg/dL POC Glucose (mg/dL) 174 H (75-99) mg/dL 11/12/19 11/12/19 Range/Units 06:04 11:49 WBC (3.8-10.6) k/uL RBC (3.80-5.40) m/uL Hgb (11.4-16.0) gm/dL Hct (34.0-46.0) % Neutrophils # (1.3-7.7) k/uL Lymphocytes # (1.0-4.8) k/uL Sodium (137-145) mmol/L Potassium (3.5-5.1) mmol/L Chloride (98-107) mmol/L BUN (7-17) mg/dL Creatinine (0.52-1.04) mg/dL Glucose (74-99) mg/dL POC Glucose (mg/dL) 220 H 151 H (75-99) mg/dL Microbiology - Last 24 Hours (Table) 11/08/19 19:35 Blood Culture - Preliminary Blood No Growth after 72 hours 11/09/19 17:25 Gram Stain - Final Sputum Sputum Culture - Final Assessment and Plan Plan: Assessment: #1. Acute abdominal pain, related to possibility of gangrenous cholecystitis, ultrasound of the abdomen revealed gallstones at the gallbladder neck, air in the gallbladder wall. Status post laparoscopic cholecystectomy, postoperative day 3 #2. Weakness, fatigue, dehydration related to the above, improved #3. Acute kidney injury related to ATN, slightly improved with IV hydration #4. Hypokalemia, serum potassium is being replaced per protocol, likely related to dehydration, poor oral intake and diuretics #5. New onset atrial fibrillation with RVR, currently better controlled #6. Vascular prominence and infiltrates seen on the chest x-ray, possibility of acute exacerbation of CHF with unknown EF #7. History of mild intermittent bronchial asthma, stable #8. History of multiple nonspecific pulmonary nodules have been under surveillance since July [address] Ambrocio, have not shown this can increase the patient has been asymptomatic #9. Hypertension #10. Hyperlipidemia #11. Diabetes mellitus type II #12. History of difficulty hearing Plan: Continue current medical treatment, encourage deep breathing and coughing, follow-up chest x-ray in the morning, continue oral diuretics, no worsening dyspnea, patient is actually on room air today. Tolerating oral intake, no nausea or vomiting, no fever or chills, continue with current antibiotics. I performed a history & physical examination of the patient and discussed their management with my nurse practitioner, Saumya Juan. I reviewed the nurse practitioner's note and agree with the documented findings and plan of care. Lung sounds are positive for diminished breath sounds. The findings and the impression was discussed with the patient. I attest to the documentation by the nurse practitioner. Time with Patient: Less than 30
--- NOTE | 2019-11-12 13:37 | XR ---
EXAMINATION TYPE: XR chest 1V portable DATE OF EXAM: 11/12/2019 COMPARISON: Prior chest x-ray 11/10/2019 HISTORY: Congestion and abnormal chest x-ray, TECHNIQUE: Single frontal view of the chest is obtained. FINDINGS: Patient is rotated. There are overlying cardiac leads. Heart remains enlarged. Central vas cularity appears prominently, correlate for possible pulmonary artery hypertension. There is no evide nt pneumothorax or pleural effusion. Interstitium may be mildly increased. IMPRESSION: Findings are similar to prior exam. Cardiomegaly. Correlate for pulmonary artery hyperte nsion. Difficult to exclude a component of interstitial edema.
--- NOTE | 2019-11-12 13:56 | P.PN ---
Subjective Progress Note Date: 11/12/19 Principal diagnosis: Abdominal pain Patient was seen and examined. No acute events overnight. Patient underwent laparoscopic cholecystectomy postoperative day 3. She reports having a bowel movement this morning. She denies any shortness of breath today. No nausea or vomiting. Plans to advance diet to soft diet. She is currently on 2 L nasal cannula. Objective - Vital Signs Vital signs: Vital Signs Temp 99.3 F 11/12/19 08:30 Pulse 105 H 11/12/19 08:30 Resp 18 11/12/19 08:30 BP 129/61 11/12/19 08:30 Pulse Ox 99 11/12/19 08:30 Intake & Output 11/11/19 11/12/19 11/12/19 18:59 06:59 18:59 Intake Total 1200 802 340 Output Total 500 1015 Balance 700 -213 340 Weight 104.9 kg Intake: Intake, IV Titration 100 100 Amount metroNIDAZOLE-NS PMX 500 100 100 mg In Saline 1 100ml.bag @ 100 mls/hr IVPB Q6HR [facility] Rx#:[id number] Oral 1200 702 240 Output: Drainage 15 Right Abdomen 15 Urine 500 1000 Uretheral (Ramos) 700 Other: Voiding Method Indwelling Catheter Indwelling Catheter Indwelling Catheter - Exam General: [Elderly, toxic], [no distress], [appears at stated age] Derm: [warm], [dry] Head: [atraumatic], [normocephalic], [symmetric] Eyes: [EOMI], [no lid lag], [anicteric sclera] Mouth: [no lip lesion], [mucus membranes moist] Cardiovascular: [S1S2 irregularly irregular], [heart rate in the low 100s], [positive DP pulse bilateral], Lungs: [Coarse breath sounds bilateral], [good air entry bilaterally] , [no acce ssory muscle use] Abdominal: [soft], [improved right upper quadrant tenderness with JOSE ENRIQUE drain], [no guarding], [no appreciable organomegaly] Ext: [no gross muscle atrophy], [no edema], [no contractures] Neuro: [no focal neuro deficits] Psych: [Alert], [oriented], [appropriate affect] - Labs CBC & Chem 7: 11/12/19 05:52 11/12/19 05:52 Labs: Abnormal Lab Results - Last 24 Hours (Table) 11/11/19 11/11/19 11/12/19 Range/Units 16:22 19:46 05:52 WBC 11.8 H (3.8-10.6) k/uL RBC 3.75 L (3.80-5.40) m/uL Hct 33.8 L (34.0-46.0) % Neutrophils # 10.1 H (1.3-7.7) k/uL Lymphocytes # 0.9 L (1.0-4.8) k/uL Potassium (3.5-5.1) mmol/L Chloride (98-107) mmol/L BUN (7-17) mg/dL Creatinine (0.52-1.04) mg/dL Glucose (74-99) mg/dL POC Glucose (mg/dL) 160 H 174 H (75-99) mg/dL 11/12/19 11/12/19 11/12/19 Range/Units 05:52 06:04 11:49 WBC (3.8-10.6) k/uL RBC (3.80-5.40) m/uL Hct (34.0-46.0) % Neutrophils # (1.3-7.7) k/uL Lymphocytes # (1.0-4.8) k/uL Potassium 3.3 L (3.5-5.1) mmol/L Chloride 97 L (98-107) mmol/L BUN 46 H (7-17) mg/dL Creatinine 1.35 H (0.52-1.04) mg/dL Glucose 166 H (74-99) mg/dL POC Glucose (mg/dL) 220 H 151 H (75-99) mg/dL Microbiology - Last 24 Hours (Table) 11/08/19 19:35 Blood Culture - Preliminary Blood No Growth after 72 hours Assessment and Plan Assessment: RUQ abdominal pain w/ suspected cholecystitis -C/w Metronidazole and Levaquin -Consult Surgery, POD 3 laparoscopic cholecystectomy -Soft and advance -Pain control -Follow up blood cultures Hypokalemia -Replace via protocol -Daily BMP Acute on chronic hypoxic respiratory failure, concerns for pneumonia less likely diastolic CHF exacerbation -Inflammatory markers possibly elevated due to suspected cholecystitis -Echocardiogram shows EF 60-65% with mild concentric LVH -Patient's daughter refused COVID testing at this time -C/w droplet isolation at this time -Pulm consulted -Pro Calcitonin elevated, patient has been on Levaquin since hospitalization, to complete a total of 7 days -Continue with Levaquin for now Newly diagnosed A. 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 C/w Lopressor DVT prophylaxis -Heparin subq
--- NOTE | 2019-11-12 15:11 | PN ---
PROGRESS NOTE Tanja is an 83-year-old lady was admitted to hospital with acute cholecystitis, new onset atrial fibrillation with rapid ventricular rate and acute onset congestive heart failure. She underwent cholecystectomy. She is doing much better and does not seem to be in overt heart failure at the moment and she was started on Eliquis this morning. PHYSICAL EXAM: Heart rate is well controlled at 68 beats per minute. Blood pressure is 134/73, respiratory rate is 18. Chest exam reveals good air entry bilaterally. Heart exam reveals first and second heart sounds, irregular rhythm and a systolic murmur at the left lower sternal border. Abdomen is soft. Exam of the extremities reveals mild edema. Peripheral pulses are felt. An echocardiogram on her on this admission revealed normal LV systolic function. ASSESSMENT: 1. Acute onset diastolic heart failure. 2. Persistent atrial fibrillation with controlled ventricular rate. 3. Acute cholecystitis, status post cholecystectomy. PLAN: Patient is doing well. She will continue the Eliquis 2.5 b.i.d., Lasix 40 b.i.d., Lopressor 75 mg daily and she is stable for discharge. Hopefully home tomorrow. She will follow up with me in 2 weeks' time. I will see her in the morning if she is not discharged home. MMODL / IJN: [id number] /
[2019-11-12] MEDS: ALBUTEROL NEBULIZED 2.5 MG/3 ML INHALATION SCH ×4 (15:41→23:51)
[2019-11-12 16:42] LABS: Glucose,Whole Blood 151 mg/dL (75-99)
[2019-11-12] MEDS: metroNIDAZOLE 500 MG TAB PO SCH ×2 (17:37→23:57)
[2019-11-12] MEDS ORDERED: POTASSIUM CHLORIDE ER 20 MEQ TAB.ER PO SCH (19:00)
[2019-11-12 20:33] LABS: Glucose,Whole Blood 195 mg/dL (75-99)
[2019-11-12] MEDS ORDERED: LEVOFLOXACIN 750 MG TAB PO SCH (21:00)
[2019-11-13] MEDS: ALBUTEROL NEBULIZED 2.5 MG/3 ML INHALATION SCH ×6 (04:13→23:49)
[2019-11-13 06:18] LABS: Glucose,Whole Blood 143 mg/dL (75-99)
[2019-11-13] MEDS: INSULIN ASPART (NovoLOG) 100 UNIT/ML VIAL SQ SCH ×3 (06:21→17:20)
[2019-11-13] MEDS: metroNIDAZOLE 500 MG TAB PO SCH ×4 (06:21→23:01)
[2019-11-13 07:37] LABS: Calcium 8.5 mg/dL (8.4-10.2); Potassium 3.7 mmol/L (3.5-5.1)
--- NOTE | 2019-11-13 07:56 | XR ---
EXAMINATION TYPE: XR chest 1V portable DATE OF EXAM: 11/13/2019 COMPARISON: Prior chest x-ray 11/12/2019 HISTORY: Fluid overload, follow-up TECHNIQUE: Single frontal view of the chest is obtained. FINDINGS: Patient is rotated. Aorta is dense. Heart remains enlarged. No evident pneumothorax. No si zable effusion. Interstitium mildly increased. Aeration appears slightly improved. There are overlyin g cardiac leads. Bones are stable. IMPRESSION: Findings are similar to prior exam. Cardiomegaly. Suspect some improvement in lung aerat ion as compared to prior exam.
--- NOTE | 2019-11-13 08:09 | P.PN ---
Subjective Principal diagnosis: Elderly female admitted with acute cholecystitis New onset atrial fibrillation with RVR Acute congestive heart failure She underwent cholecystectomy and yesterday when Dr. Aquino saw her she was not in overt heart failure and therefore was also started on ELIQUIS post surgery He felt that this was diastolic heart failure History her rates were controlled She is on ELIQUIS 2.5 twice a day Lasix Lopressor She is on short-acting metoprolol 75 mg once a day only White count 11.8, hemoglobin 11.4 Sodium 137, potassium 3.6 BUN 46 and creatinine 1.35 which is higher than yesterday but better than before yesterday On examination blood pressure 121/58 mmHg ulcerated 104 beats a minute nonlabored breathing respirations 20 pulse ox 95% on room air afebrile On examination she is resting comfortably in bed. She is hard of hearing and may be a bit confused but she really has difficulty hearing No lower extremity edema no JVD She has a Ramos catheter with Dr. Camacho in, seems concentrated Heart sounds are tachycardic, systolic, Ackles at both lung bases Impression Atrial fibrillation with RVR Suggest Increase Lopressor to 75 mg twice daily Continue anticoagulation with ELIQUIS Check TSH Objective - Vital Signs Vital signs: Vital Signs Temp 98.9 F 11/13/19 04:00 Pulse 104 H 11/13/19 04:00 Resp 20 11/13/19 04:00 BP 121/58 11/13/19 04:00 Pulse Ox 95 11/13/19 04:00 Intake & Output 11/12/19 11/13/19 11/13/19 18:59 06:59 18:59 Intake Total 1180 981 Output Total 1360 Balance 1180 -379 Weight 94.1 kg Intake: Intake, IV Titration 200 Amount metroNIDAZOLE-NS PMX 500 200 mg In Saline 1 100ml.bag @ 100 mls/hr IVPB Q6HR [facility] Rx#:[id number] Oral 980 981 Output: Drainage 10 Right Abdomen 10 Urine 1350 Uretheral (Ramos) 675 Other: Voiding Method Indwelling Catheter Indwelling Catheter - Labs CBC & Chem 7: 11/12/19 05:52 11/13/19 06:45 Labs: Abnormal Lab Results - Last 24 Hours (Table) 11/12/19 11/12/19 11/12/19 Range/Units 11:49 16:41 20:32 POC Glucose (mg/dL) 151 H 151 H 195 H (75-99) mg/dL 11/13/19 Range/Units 06:16 POC Glucose (mg/dL) 143 H (75-99) mg/dL Microbiology - Last 24 Hours (Table) 11/08/19 19:35 Blood Culture - Preliminary Blood No Growth after 72 hours
[2019-11-13] MEDS: PANTOPRAZOLE 40 MG TABLET PO SCH (08:18)
[2019-11-13] MEDS: FUROSEMIDE 40 MG TAB PO SCH ×2 (08:18→17:41)
[2019-11-13] MEDS: APIXABAN 2.5 MG TABLET PO SCH ×2 (08:18→20:26)
[2019-11-13] MEDS: METOPROLOL TARTRATE 25 MG TAB PO SCH ×2 (08:18→20:26)
[2019-11-13] MEDS: ATORVASTATIN 40 MG TAB PO SCH (08:18)
[2019-11-13] MEDS: ACETAMINOPHEN TAB 325 MG TAB PO PRN (08:25)
[2019-11-13] MEDS ORDERED: POTASSIUM CHLORIDE ER 20 MEQ TAB.ER PO SCH (09:00)
--- NOTE | 2019-11-13 10:21 | P.PN ---
Progress Note - Text Progress Note Date: 11/13/19 The patient has had difficulties H fibrillation. She's had pulses in the 140s. Patient states she feels well. She has minimal abdominal pain. Patient will have her JOSE ENRIQUE drain and Ramos catheter removed today. She'll be sent discharged once she is medically stable.
[2019-11-13 11:04] VITALS: BMI 33.5
[2019-11-13 12:21] LABS: Glucose,Whole Blood 174 mg/dL (75-99)
--- NOTE | 2019-11-13 13:27 | P.PN ---
Subjective Progress Note Date: 11/13/19 Principal diagnosis: Acute abdominal pain, gangrenous cholecystitis 83-year-old white female patient with past medical history of mild intermittent bronchial asthma, history of nonspecific pulmonary nodules for which she follows with Dr. Ambrocio in the pulmonary clinic, and there were monitored for a long period of time since July 2015, have not shown significant change in size and patient had been asymptomatic and the nodules were nonspecific. Medical history includes benign essential hypertension, hyperlipidemia, and diabetes mellitus. Patient was brought into the emergency department by her daughter on 11/08/2019 in an ambulance for evaluation of mental status, concern for urinary tract infection, not feeling well, weak, fatigued and decreased oral intake. Denied any fevers, patient is having abdominal discomfort and tenderness in the right upper quadrant and lower abdominal discomfort. Her last bowel movement was the day before presentation. CT of the abdomen and pelvis without contrast showed patchy densities within the lung bases, cardiomegaly, gallstones present in the gallbladder with some air within the gallbladder, consideration for emphysematous cholecystitis. EKG showed atrial fibrillation with mildly elevated ventricular rate for which patient was started on Cardizem drip. Ultrasound of the gallbladder showed extensive shadowing in the gallbladder, gallstones in the gallbladder neck, and small amount of free fluid adjacent to the liver, with possibility of a gangrenous gallbladder. Patient is being kept nothing by mouth, surgical consultation was requested and patient is being considered for laparoscopic cholecystectomy today. No cough or congestion, no fever or chills, room air pulse ox 97%, hemodynamically she is stable. Her labs showed white blood cell count of 15.7, hemoglobin is 10.7, d-dimer is 3.9, sodium is 135, potassium is 2.5, chloride is 93, CO2 31, BUN is 75, creatinine is 1.59, plasma lactic acid is 1.3, total bilirubin is 1.4, ferritin is 244, AST is 82, ALT is 28, alk phos is 113, LDH is 747, CRP is 394, proBNP is 4700, broke acetone is elevated at 1.27 and patient has been started on empiric antibiotics, in the form of Levaquin, and Flagyl, patient was given IV fluid bolus, and IV hydration overnight, and on today's labs her renal profile is slightly improved, however she still hypokalemic, which is being replaced per protocol. Urinalysis was negative for any sign of infection. She was started on IV Lasix by cardiology, for elevated proBNP and today's chest x-ray showing vascular prominence, evidence of fluid volume overload. On 11/10/2019 patient seen in follow-up on selective care unit, today is postoperative day 1, status post laparoscopic cholecystectomy for acute gangrenous cholecystitis. Patient is doing well today, she is awake and alert, she is in no acute distress, her pain is reasonably controlled, complains of nausea or vomiting, no shortness of breath or chest pain, she is on 5 L of oxygen and the pulse ox of 98%, hemodynamically stable, her breathing is comfortable, she is afebrile, she is on empiric antibiotics in the form of Levaquin and Flagyl. She remains in atrial fibrillation, with a controlled rate currently at a rate of 62 BPM. She is on prophylactic dose of Lovenox for anticoagulation, cardiology is following, and patient is also receiving IV Lasix for acute exacerbation of CHF, echocardiogram has been completed, and is pending at this time, she has been afebrile. Patient will be started on full liquid diet today. She is in negative fluid balance, today's labs have been reviewed, showing white blood cell count 12.8, hemoglobin of 10.3, sodium of 143, potassium is 2.9, chloride is 104, B1 of 61 and creatinine of 1.51. On 11/11/2019 patient seen in follow-up on selective care unit, this is postoperative day 2, status post upper scopic cholecystectomy for acute gangrenous cholecystitis, patient is awake and alert, oriented 3, she still has abdominal soreness, and surgical incisional pain, no acute distress. Abdomen is sore, but soft, she still has right-sided JOSE ENRIQUE drain in place with small amount of serosanguineous output, in the 70 mL over last 24 hours. Denies any nausea or vomiting, she has been started on clear liquid diet yesterday, tolerating it well so far. No new labs today. No fever or chills, blood and sputum cultures have shown no growth, she is on Levaquin and Flagyl for antibiotic coverage. Diuretics have been transitioned to oral Lasix twice a day. Patient is -516 mL fluid balance over last 24 hours. No worsening dyspnea, she is satting 99% on 3 L, she is working on incentive spirometer. On 11/12/2019 patient seen in follow-up on selective care unit, this postoperative day 3, status post laparoscopic cholecystectomy for acute gangrenous cholecystitis. Patient is doing well, she is up in the chair today, she is on room air, with a pulse ox of 99%, no worsening dyspnea, she is working on incentive spirometer, he'll have some abdominal soreness, which is fairly well controlled with oral medications, no nausea or vomiting, abdomen is soft, he continues on the antibiotics in form of Levaquin and Flagyl. Blood and sputum cultures have shown no growth, afebrile. Minimal output from the JOSE ENRIQUE in the right abdomen. Patient continues on oral Lasix, she is positive for 187 mL over the last 24 hours. No worsening dyspnea, we will order follow-up chest x- ray for tomorrow. Patient has been tolerating a full liquid diet, her diet is being advanced to soft for lunch. The patient is seen today 11/13/2019 in follow-up on the selective care unit. She is currently resting quite comfortably in bed. Postoperative day #4 status post laparoscopic cholecystectomy for acute gangrenous cholecystitis. No shortness of breath, cough or congestion. She is maintaining O2 saturations in the mid 90s on room air. Chest x-ray shows improved aeration. Continues to work well with the incentive spirometer. Sputum culture revealed no growth. Blood cultures revealed no growth. Sodium 138. Potassium 3.7. Creatinine 1.21. Glucose 136. She remains on Levaquin and Flagyl. Anticoagulated with Eliquis. Objective - Vital Signs Vital signs: Vital Signs Temp 98.4 F 11/13/19 08:10 Pulse 80 11/13/19 11:50 Resp 16 11/13/19 11:50 BP 115/56 11/13/19 11:50 Pulse Ox 97 11/13/19 11:50 Intake & Output 11/12/19 11/13/19 11/13/19 18:59 06:59 18:59 Intake Total 1180 981 Output Total 1360 602 Balance 3977 -205 -028 Weight 94.1 kg 94.1 kg Intake: Intake, IV Titration 200 Amount metroNIDAZOLE-NS PMX 500 200 mg In Saline 1 100ml.bag @ 100 mls/hr IVPB Q6HR [facility] Rx#:[id number] Oral 980 981 Output: Drainage 10 2 Right Abdomen 10 2 Urine 1350 600 Uretheral (Ramos) 675 600 Other: Voiding Method Indwelling Catheter Indwelling Catheter Indwelling Catheter - Exam GENERAL EXAM: Alert, very pleasant, 83-year-old female patient, on room air with a pulse ox 97%, resting in bed, in no acute distress HEAD: Normocephalic/atraumatic. EYES: Normal reaction of pupils, equal size. Conjunctiva pink, sclera white. NOSE: Clear with pink turbinates. THROAT: No erythema or exudates. NECK: No masses, no JVD, no thyroid enlargement, no adenopathy. CHEST: No chest wall deformity. Symmetrical expansion. LUNGS: Equal air entry with crackles in the bilateral posterior bases. CVS: Irregular rate and rhythm, normal S1 and S2, no gallops, no murmurs, no rubs ABDOMEN: Soft, abdominal tenderness in the right upper quadrant, laparoscopic surgical incisions are clean dry and intact, right upper quadrant JOSE ENRIQUE drain present, with small amount of serosanguineous output compressed and draining. No hepatosplenomegaly, normal bowel sounds, no guarding or rigidity. EXTREMITIES: No clubbing, no edema, no cyanosis, 2+ pulses and upper and lower extremities. MUSCULOSKELETAL: Muscle strength and tone normal. SPINE: No scoliosis or deformity SKIN: No rashes CENTRAL NERVOUS SYSTEM: No focal deficits, tone is normal in all 4 extremities. PSYCHIATRIC: Alert and oriented -3. Appropriate affect. Intact judgment and insight. - Labs CBC & Chem 7: 11/12/19 05:52 11/13/19 06:45 Labs: Abnormal Lab Results - Last 24 Hours (Table) 11/12/19 11/12/19 11/13/19 Range/Units 16:41 20:32 06:16 BUN (7-17) mg/dL Creatinine (0.52-1.04) mg/dL Glucose (74-99) mg/dL POC Glucose (mg/dL) 151 H 195 H 143 H (75-99) mg/dL 11/13/19 11/13/19 Range/Units 06:45 12:20 BUN 44 H (7-17) mg/dL Creatinine 1.21 H (0.52-1.04) mg/dL Glucose 136 H (74-99) mg/dL POC Glucose (mg/dL) 174 H (75-99) mg/dL Microbiology - Last 24 Hours (Table) 11/08/19 19:35 Blood Culture - Preliminary Blood No Growth after 96 hours Assessment and Plan Assessment: #1. Acute abdominal pain, related to possibility of gangrenous cholecystitis, ultrasound of the abdomen revealed gallstones at the gallbladder neck, air in the gallbladder wall. Status post laparoscopic cholecystectomy, postoperative day 4 #2. Weakness, fatigue, dehydration related to the above, improved #3. Acute kidney injury related to ATN, slightly improved with IV hydration #4. Hypokalemia, serum potassium is being replaced per protocol, likely related to dehydration, poor oral intake and diuretics #5. New onset atrial fibrillation with RVR, currently better controlled #6. Vascular prominence and infiltrates seen on the chest x-ray, possibility of acute exacerbation of CHF with unknown EF #7. History of mild intermittent bronchial asthma, stable #8. History of multiple nonspecific pulmonary nodules have been under surveillance since July [address] Poon, have not shown this can increase the patient has been asymptomatic #9. Hypertension #10. Hyperlipidemia #11. Diabetes mellitus type II #12. History of difficulty hearing Plan: The patient was seen and evaluated by Dr. Poon Chest x-ray and labs reviewed Continues working well with the incentive spirometer Currently on room air Increase her activity as tolerated Home once cleared surgically I, the cosigning physician, performed a history & physical examination of the patient. Lungs sounds with crackles in the bilateral posterior bases. Maintaining good O2 saturations in the 90s on room air. I discussed the assessment and plan of care with my nurse practitioner, Lizy Zimmer. I attest to the above note as dictated by her.
--- NOTE | 2019-11-13 13:44 | P.PN ---
Subjective Progress Note Date: 11/13/19 Principal diagnosis: Abdominal pain Patient was seen and examined. No acute events overnight. Patient underwent laparoscopic cholecystectomy postoperative day 4. Patient requesting to go home. She denies any shortness of breath today. No nausea or vomiting. Plans to advance diet to soft diet. She is currently on room air. Heart rate as high as 140s this morning. Objective - Vital Signs Vital signs: Vital Signs Temp 98.4 F 11/13/19 08:10 Pulse 80 11/13/19 11:50 Resp 16 11/13/19 11:50 BP 115/56 11/13/19 11:50 Pulse Ox 97 11/13/19 11:50 Intake & Output 11/12/19 11/13/19 11/13/19 18:59 06:59 18:59 Intake Total 1180 981 Output Total 1360 602 Balance 1180 -379 -602 Weight 94.1 kg 94.1 kg Intake: Intake, IV Titration 200 Amount metroNIDAZOLE-NS PMX 500 200 mg In Saline 1 100ml.bag @ 100 mls/hr IVPB Q6HR [facility] Rx#:[id number] Oral 980 981 Output: Drainage 10 2 Right Abdomen 10 2 Urine 1350 600 Uretheral (Ramos) 675 600 Other: Voiding Method Indwelling Catheter Indwelling Catheter Indwelling Catheter - Exam General: [Elderly, toxic], [no distress], [appears at stated age] Derm: [warm], [dry] Head: [atraumatic], [normocephalic], [symmetric] Eyes: [EOMI], [no lid lag], [anicteric sclera] Mouth: [no lip lesion], [mucus membranes moist] Cardiovascular: [S1S2 irregularly irregular], [heart rate in the 110s], [posi tive DP pulse bilateral], Lungs: [Coarse breath sounds bilateral], [good air entry bilaterally] , [no accessory muscle use] Abdominal: [soft], [improved right upper quadrant tenderness], [no guarding], [no appreciable organomegaly] Ext: [no gross muscle atrophy], [no edema], [no contractures] Neuro: [no focal neuro deficits] Psych: [Alert], [oriented], [appropriate affect] - Labs CBC & Chem 7: 11/12/19 05:52 11/13/19 06:45 Labs: Abnormal Lab Results - Last 24 Hours (Table) 11/12/19 11/12/19 11/13/19 Range/Units 16:41 20:32 06:16 BUN (7-17) mg/dL Creatinine (0.52-1.04) mg/dL Glucose (74-99) mg/dL POC Glucose (mg/dL) 151 H 195 H 143 H (75-99) mg/dL 11/13/19 11/13/19 Range/Units 06:45 12:20 BUN 44 H (7-17) mg/dL Creatinine 1.21 H (0.52-1.04) mg/dL Glucose 136 H (74-99) mg/dL POC Glucose (mg/dL) 174 H (75-99) mg/dL Microbiology - Last 24 Hours (Table) 11/08/19 19:35 Blood Culture - Preliminary Blood No Growth after 96 hours Assessment and Plan Assessment: RUQ abdominal pain w/ suspected cholecystitis -C/w Metronidazole and Levaquin -Consult Surgery, POD 4 laparoscopic cholecystectomy -Soft diet and advance -Pain control -Follow up blood cultures Acute on chronic hypoxic respiratory failure, concerns for pneumonia less likely diastolic CHF exacerbation -Inflammatory markers possibly elevated due to suspected cholecystitis -Echocardiogram shows EF 60-65% with mild concentric LVH -Patient's daughter refused COVID testing at this time -C/w droplet isolation at this time -Pulm consulted -Pro Calcitonin elevated, patient has been on Levaquin since hospitalization, to complete a total of 7 days -Continue with Levaquin for now Newly diagnosed A. 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 C/w Lopressor DVT prophylaxis -Heparin subq [Patient with heart rate into the 140s this morning. Cardiology is following. Metoprolol increased. Anticipated DC home tomorrow if her rate is better controlled. Cleared by general surgery.]
[2019-11-13 17:19] LABS: Glucose,Whole Blood 143 mg/dL (75-99)
[2019-11-13 20:50] LABS: Glucose,Whole Blood 207 mg/dL (75-99)
[2019-11-14] MEDS: ALBUTEROL NEBULIZED 2.5 MG/3 ML INHALATION SCH ×3 (03:33→11:22)
[2019-11-14 06:06] LABS: Glucose,Whole Blood 155 mg/dL (75-99)
[2019-11-14] MEDS: INSULIN ASPART (NovoLOG) 100 UNIT/ML VIAL SQ SCH ×2 (06:36→12:36)
[2019-11-14] MEDS: metroNIDAZOLE 500 MG TAB PO SCH ×2 (06:37→12:36)
--- NOTE | 2019-11-14 08:15 | P.PN ---
Subjective Elderly female admitted with cholecystitis. Found to have atrial fibrillation with RVR Dose of metoprolol was increased yesterday Her rates appear to be better controlled today She remains on Lasix Pulse rate between 50-84 beats a minute afebrile 98.2F blood pressure 136/63 mmHg respirations normal Patient looks comfortable Soft systolic murmur over the precordium Mild bilateral lower extremity edema No JVD lungs reduced air entry bilaterally Somewhat dry mouth Labs are reviewed. Sodium 138 potassium 3.7 BUN 44 creatinine 1.21 Impression Atrial fibrillation with RVR, we'll increase the dose of metoprolol to 75 mg twice daily yesterday TSH has been ordered Plan [facility] tomorrow and reassess need for adjustment of dose of Lasix Objective - Vital Signs Vital signs: Vital Signs Temp 98.2 F 11/14/19 03:53 Pulse 84 11/14/19 03:53 Resp 20 11/14/19 03:53 BP 136/63 11/14/19 03:53 Pulse Ox 97 11/14/19 03:53 Intake & Output 11/13/19 11/14/19 11/14/19 18:59 06:59 18:59 Intake Total 1160 Output Total 602 300 Balance -602 860 Weight 94.1 kg 104.6 kg Intake: Oral 1160 Output: Drainage 2 Right Abdomen 2 Urine 600 300 Uretheral (Ramos) 600 Other: Voiding Method Indwelling Catheter Bedside Commode Diaper - Labs CBC & Chem 7: 11/12/19 05:52 11/13/19 06:45 Labs: Abnormal Lab Results - Last 24 Hours (Table) 11/13/19 11/13/19 11/13/19 Range/Units 12:20 17:18 20:49 POC Glucose (mg/dL) 174 H 143 H 207 H (75-99) mg/dL 11/14/19 Range/Units 06:05 POC Glucose (mg/dL) 155 H (75-99) mg/dL Microbiology - Last 24 Hours (Table) 11/08/19 19:35 Blood Culture - Preliminary Blood No Growth after 120 hours
[2019-11-14 09:20] VITALS: RESP 16; TEMP 98.6
[2019-11-14] MEDS: APIXABAN 2.5 MG TABLET PO SCH (09:20)
[2019-11-14] MEDS: METOPROLOL TARTRATE 25 MG TAB PO SCH (09:20)
[2019-11-14] MEDS: ATORVASTATIN 40 MG TAB PO SCH (09:20)
[2019-11-14] MEDS: FUROSEMIDE 40 MG TAB PO SCH (09:20)
[2019-11-14] MEDS: PANTOPRAZOLE 40 MG TABLET PO SCH (09:20)
[2019-11-14] MEDS: ACETAMINOPHEN TAB 325 MG TAB PO PRN (09:29)
--- NOTE | 2019-11-14 10:36 | P.PN ---
Progress Note - Text Progress Note Date: 11/14/19 Patient's resting comfortably in her bed. She denies any significant abdominal pain. On exam her vital signs are stable. Her abdomen soft. Incision sites clean dry tach. Patient is status post laparoscopic close it for gangrenous cholecystitis. Clinically she is doing well. She'll be discharged home per the medical service.
[2019-11-14 11:26] LABS: Glucose,Whole Blood 181 mg/dL (75-99)
[2019-11-14 14:06] VITALS: BP 117/63; PULSE 75
--- NOTE | 2019-11-14 15:03 | P.DS ---
Providers Date of admission: 11/08/19 21:52 Expected date of discharge: 11/14/19 Attending physician: Antonino Guadarrama MD Consults: 11/08/19 21:53 Consult Physician Urgent Consulting Provider: Mary Poon Consult Reason/Comments: Evaluate chest x-ray and CT for infiltrate versus other Do you want consulting provider notified?: Yes Consult Physician Urgent Consulting Provider: Asif Cohen Consult Reason/Comments: new onset a fib, eval for chf Do you want consulting provider notified?: Yes 11/08/19 23:21 Consult Physician Urgent Consulting Provider: Dallin Chin Consult Reason/Comments: Evaluate for gangrenous gallbladder Do you want consulting provider notified?: Already Contacted Primary care physician: Michelle Del Rio [facility] Course: The patient is an 83-year-old female with a PMH of type II DM, hypertension, and hyperlipidemia who was brought into the ED by her daughter due to not feeling well over the past few days. The patient was a very poor historian and thereby history obtained from the daughter at the bedside. The daughter (POA) reports that over the past 4-5 days, the patient has been increasingly weak, confused, and has had a poor appetite. The patient also endorsed a suprapubic and right upper quadrant abdominal pain, unable to quantify, nonradiating, and unable to state any alleviating or exacerbating features. The daughter further endorsed a cough productive of whitish phlegm. The patient denied experiencing chest pain, shortness of breath, nausea, vomiting, diarrhea, or headaches. The patient lives by herself though is often visited by her daughter who brings her food and takes care of her house. The patient underwent an extensive evaluation in the emergency room with CT abdomen and pelvis showing concerns for cholecystitis with patchy densities in the lung bases. Brain CT revealed a atrophy with periventricular white matter ischemic changes with no acute changes noted. Chest x-ray revealed diffuse increased lung markings suspicious for atypical pneumonia along with cardiomegaly and prominent pulmonary vascular markings suspicious for CHF. Gallbladder ultrasound revealed extensive air in the gallbladder wall with the possibility of gangrenous gallbladder. EKG revealed A. fib at 98 bpm with no acute ST/T-wave changes noted. Laboratory evaluation revealed a WBC count of 15.7, hemoglobin 10.7, d-dimer 3.99, sodium 135, potassium 2.5, CO2 31, BUN 75, creatinine 1.59, lactic acid 1.3, with C-reactive protein 394. With regard to her right upper quadrant abdominal pain with suspected cholecystitis she was started on metronidazole and levofloxacin. General surgery was consulted and patient underwent laparoscopic cholecystectomy. Her diet was advanced as tolerated and patient was able to tolerate a regular diet prior to discharge. Blood cultures were negative at all 120 hours. There is concerns for diastolic CHF exacerbation versus pneumonia. Echocardiogram was done which showed EF 60-65% with mild concentric LVH. Patient refused coronavirus testing during her hospitalization. Her pro- calcitonin was elevated as well. She was being treated for pneumonia with levofloxacin that was also treating her suspected cholecystitis. After her procedure, she developed new onset atrial fibrillation. Cardiology was consulted. Her metoprolol was titrated for rate control. She was started on Eliquis when cleared by general surgery. Patient was hypokalemic with a potassium of 2.9 on November 10. Her potassium was replaced via protocol. Repeat potassium prior to discharge was within normal limits. Patient was seen and examined. No acute events overnight. Patient denies any chest pain, shortness of breath or palpitations. No nausea or vomiting. Tolerating oral intake without any difficulties. Wanting to go home. General: [Elderly, toxic], [no distress], [appears at stated age] Derm: [warm], [dry] Head: [atraumatic], [normocephalic], [symmetric] Eyes: [EOMI], [no lid lag], [anicteric sclera] Mouth: [no lip lesion], [mucus membranes moist] Cardiovascular: [S1S2 irregularly irregular], [heart rate in the 80s], [positive DP pulse bilateral], Lungs: [Decreased breath sounds bilateral], [good air entry bilaterally] , [no accessory muscle use] Abdominal: [soft], [nontender to palpation], [no guarding], [no appreciable organomegaly] Ext: [no gross muscle atrophy], [no edema], [no contractures] Neuro: [no focal neuro deficits] Psych: [Alert], [oriented], [appropriate affect] RUQ abdominal pain w/ suspected cholecystitis -Patient will complete another 7 days of levofloxacin and metronidazole -Consult Surgery, POD 5 laparoscopic cholecystectomy -Soft diet and advance -Pain control -Blood culture negative at 120 hours Acute on chronic hypoxic respiratory failure, concerns for pneumonia less likely diastolic CHF exacerbation -Inflammatory markers possibly elevated due to suspected cholecystitis -Echocardiogram shows EF 60-65% with mild concentric LVH -Patient's daughter refused COVID testing at this time -C/w droplet isolation at this time -Pulm consulted -Pro Calcitonin elevated, patient has been on Levaquin since hospitalization, to complete another 7 days Newly diagnosed A. 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 C/w Lopressor DVT prophylaxis -Heparin subq [Patient with better rate control. Continue levofloxacin and metronidazole for another 7 days after discharge. Medications sent to pharmacy of daughter's choice. Plans on DC today. This complex discharge took about 45 minutes to complete.] Pertinent Studies: Chest x-ray, echocardiogram, CT abdomen and pelvis, brain CT Procedures: Laparoscopic cholecystectomy Patient Condition at Discharge: Stable Plan - Discharge Summary New Discharge Prescriptions: New Apixaban [Eliquis] 2.5 mg PO BID #8 tablet metroNIDAZOLE [Flagyl] 500 mg PO Q6HR #28 tab Furosemide [Lasix] 40 mg PO BID@0900,1600 #8 tab Levofloxacin [Levaquin] 750 mg PO Q48H #4 tab Metoprolol Tartrate [Lopressor] 75 mg PO BID #24 tab Pantoprazole [Protonix] 40 mg PO DAILY #4 tablet. Apixaban [Eliquis] 2.5 mg PO BID #60 tab Furosemide [Lasix] 40 mg PO BID #60 tablet Metoprolol Tartrate [Lopressor] 75 mg PO BID #60 tablet Pantoprazole Sodium [Protonix] 40 mg PO DAILY #30 tablet. Apixaban [Eliquis] 2.5 mg PO BID #60 tab Continue Losartan [Cozaar] 50 mg PO DAILY Potassium Chloride ER [K-Dur 10] 10 meq PO Q48H Pioglitazone [Actos] 15 mg PO DAILY Atorvastatin [Lipitor] 40 mg PO DAILY Hydrochlorothiazide 12.5 mg PO DAILY Cyanocobalamin (Vitamin B-12) [Vitamin B-12] 5,000 mcg PO DAILY Cholecalciferol [Vitamin D3 (25 Mcg = 1000 Iu)] 1,000 unit PO DAILY Hydrocortisone Cream [Hydrocortisone 2.5% Cream] 1 applic TOPICAL DAILY PRN PRN Reason: dry/itchy feet Discontinued Metoprolol Tartrate [Lopressor] 25 mg PO DAILY Furosemide [Lasix] 60 mg PO DAILY Discharge Medication List Atorvastatin [Lipitor] 40 mg PO DAILY 03/27/19 [History] Hydrochlorothiazide 12.5 mg PO DAILY 03/27/19 [History] Losartan [Cozaar] 50 mg PO DAILY 03/27/19 [History] Pioglitazone [Actos] 15 mg PO DAILY 03/27/19 [History] Potassium Chloride ER [K-Dur 10] 10 meq PO Q48H 03/27/19 [History] Cholecalciferol [Vitamin D3 (25 Mcg = 1000 Iu)] 1,000 unit PO DAILY 11/08/19 [History] Cyanocobalamin (Vitamin B-12) [Vitamin B-12] 5,000 mcg PO DAILY 11/08/19 [History] Hydrocortisone Cream [Hydrocortisone 2.5% Cream] 1 applic TOPICAL DAILY PRN 11/08/19 [History] Apixaban [Eliquis] 2.5 mg PO BID #60 tab 11/14/19 [Rx] Apixaban [Eliquis] 2.5 mg PO BID #60 tab 11/14/19 [Rx] Apixaban [Eliquis] 2.5 mg PO BID #8 tablet 11/14/19 [Rx] Furosemide [Lasix] 40 mg PO BID #60 tablet 11/14/19 [Rx] Furosemide [Lasix] 40 mg PO BID@0900,1600 #8 tab 11/14/19 [Rx] Levofloxacin [Levaquin] 750 mg PO Q48H #4 tab 11/14/19 [Rx] Metoprolol Tartrate [Lopressor] 75 mg PO BID #24 tab 11/14/19 [Rx] Metoprolol Tartrate [Lopressor] 75 mg PO BID #60 tablet 11/14/19 [Rx] Pantoprazole Sodium [Protonix] 40 mg PO DAILY #30 11/14/19 [Rx] Pantoprazole [Protonix] 40 mg PO DAILY #4 tablet. 11/14/19 [Rx] metroNIDAZOLE [Flagyl] 500 mg PO Q6HR #28 tab 11/14/19 [Rx] Follow up Appointment(s)/Referral(s): Michelle Del Rio MD [Primary Care Provider] - 1-2 days Asif Cohen MD [STAFF PHYSICIAN] - 3 Weeks Dallin Chin MD [STAFF PHYSICIAN] - 1 Week Patient Instructions/Handouts: A-fib (Atrial Fibrillation) (DC), Laparoscopic Cholecystectomy (DC) Activity/Diet/Wound Care/Special Instructions: Patient's daughter is requesting a 4 day rx for new meds to get pt thorough the holiday weekend and another rx for after that on any new prescriptions FU PCP within 3 days of DC. FU Surgery within 1 week of DC. Take all medications as advised. 4 days of prescriptions sent to [facility], 30 day supply of new medications sent to [facility] as per daughter request Come back to ED for worsening abdominal pain, fever > 100.4F, chest pain, SOB, palpitations, dizziness. Discharge Disposition: HOME SELF-CARE
== END 2019-11-14 15:33 | disposition home health service (06) | DRG 417 ==
LOC: SUPCPDRO 18:25 → EC 18:25 → 3SCARD 21:52
PROVIDERS: ADMIT Internal Medicine; ATTEND Internal Medicine
PROC: 0FT44ZZ Resection of Gallbladder, Percutaneous Endoscopic Approach (ICD-10-PCS; principal; 2019-11-09 09:20)
DX: K81.0 Acute cholecystitis (principal); G93.41 Metabolic encephalopathy; I50.31 Acute diastolic (congestive) heart failure; J18.9 Pneumonia, unspecified organism; J96.21 Acute and chronic respiratory failure with hypoxia; N17.0 Acute kidney failure with tubular necrosis; I13.0 Hypertensive heart and chronic kidney disease with heart failure and stage 1 through stage 4 chronic kidney disease, or unspecified chronic kidney disease; I48.19 Other persistent atrial fibrillation; E11.22 Type 2 diabetes mellitus with diabetic chronic kidney disease; E78.5 Hyperlipidemia, unspecified; E86.0 Dehydration; E87.6 Hypokalemia; H91.90 Unspecified hearing loss, unspecified ear; Z20.828 Contact with and (suspected) exposure to other viral communicable diseases; J45.20 Mild intermittent asthma, uncomplicated; K82.A1 Gangrene of gallbladder in cholecystitis; N18.9 Chronic kidney disease, unspecified; Z79.84 Long term (current) use of oral hypoglycemic drugs; Z79.899 Other long term (current) drug therapy; Z60.2 Problems related to living alone; Z53.29 Procedure and treatment not carried out because of patient's decision for other reasons; H26.9 Unspecified cataract; E11.36 Type 2 diabetes mellitus with diabetic cataract
CPT/HCPCS: 36415; 70450; 71045; 71046; 74176; 76705; 80048; 80053; 81003; 82728; 83036; 83605; 83615; 83735; 83880; 84132; 84145; 84443; 85025; 85027; 85379; 85610; 85730; 86140; 87040; 87070; 87205; 87635; 88304; 93005; 93306; 94640; 96361; 96365; 96366; 96367; 96368; 96375; 96376; 99285

== ENCOUNTER → 2020-04-11 | Outpatient (CLI) | payer MEDICARE | END | disposition home or self-care (01) | LOC: LABPAT 14:36 | PROVIDERS: ATTEND Obstetrics & Gynecology | DX: Z01.818 Encounter for other preprocedural examination (principal); N95.0 Postmenopausal bleeding; I10 Essential (primary) hypertension | CPT/HCPCS: 93005 ==

== ENCOUNTER 2020-04-17 07:10 | Day surgery (SDC) | payer MEDICARE ==
[2020-04-13 18:40] VITALS: BMI 41.2
[~2020-04-17 07:10] MED LIST: DEXAMETHASONE SOD PHOSPHATE 10 MG/ML 1 ML VIAL IV ONE; LACTATED RINGERS 1,000 ML IV SCH; MIDAZOLAM 2 MG/2 ML VIAL IV PRN; ONDANSETRON 4 MG/2 ML VIAL IVP ONE; Pre Op ABX Message 1 EACH MISC MISCELLANE ONE; fentaNYL (PF) 50 MCG/ML 2 ML AMP IV PRN
[2020-04-17 07:46] VITALS: RESP 16
[2020-04-17] MEDS ORDERED: LIDOCAINE 1% INJ 10MG/ML (20 ML MDV) ONE (08:38)
[2020-04-17] MEDS ORDERED: PROPOFOL 10 MG/ML 20 ML VIAL IV ONE (08:38)
[2020-04-17] MEDS ORDERED: MIDAZOLAM 2 MG/2 ML VIAL ONE (08:38)
[2020-04-17] MEDS ORDERED: SODIUM CHLORIDE 0.9% 100 ML with ceFAZolin 2,000 MG IV ONE ×2 (08:56)
--- NOTE | 2020-04-17 09:28 | P.OP ---
Date of Procedure: 04/17/20 Preoperative Diagnosis: Postmenopausal bleeding Postoperative Diagnosis: Same, abundant endometrial tissue Procedure(s) Performed: Pap smear, exam under anesthesia, fractional D&C, hysteroscopy Anesthesia: MARIAMA Surgeon: Tori Domingo Estimated Blood Loss (ml): 20 IV fluids (ml): 250 Urine output (ml): 300 Pathology: other (Endocervical and endometrial curettings) Condition: stable Disposition: PACU Operative Findings: A large amount of necrotic-appearing intrauterine tissue Description of Procedure: Patient is brought to the [facility] and suite where general anesthetic is administered. She's placed in the dorsal lithotomy position. The cervix, vagina, perineal bodies are all prepped and draped in the usual sterile fashion. The appropriate timeout is performed to assure proper patient and procedural identification. The bladder is drained for approximate 300 mL of strong foul smelling urine, therefore 2 g of Ancef are given. Speculum was then placed into the vagina. Anterior lip of the cervix is grasped gently with an Allis clamp. The Pap smear is performed. A Kevorkian curette is used to obtain interest cervical curettings. Uterus then sounds to a depth of 10 cm in the anteverted position. The cervix is gently and systematically dilated using Hanks dilators. The hysteroscope is placed then and the cavity is infused with sterile saline. The hysteroscope was introduced and a large amount of necrotic appearing tissue was visualized. The hysteroscope was removed. A medium sharp curette is used and the tissue was gently curetted from all 4 quadrants. A polyp forcep is introduced to assure total evacuation of the uterine cavity. Bleeding is scant after the procedure. All sponge needle and enhancement counts are correct. Patient is brought back to recovery room in good condition with a pulse of 62, 100% O2 saturation, blood pressure 123/58. She will follow-up with me in the office in 2 weeks.
[2020-04-17 09:34] VITALS: TEMP 97.4
[2020-04-17 10:20] LABS: Glucose,Whole Blood 131 mg/dL (75-99)
[2020-04-17 10:25] VITALS: BP 141/77; PULSE 60
== END 2020-04-17 10:49 | disposition home or self-care (01) ==
LOC: OR 07:10
PROVIDERS: ATTEND Obstetrics & Gynecology
DX: C54.1 Malignant neoplasm of endometrium (principal); I11.0 Hypertensive heart disease with heart failure; I50.32 Chronic diastolic (congestive) heart failure; I48.21 Permanent atrial fibrillation; E78.5 Hyperlipidemia, unspecified; J44.9 Chronic obstructive pulmonary disease, unspecified; E11.9 Type 2 diabetes mellitus without complications; M19.90 Unspecified osteoarthritis, unspecified site; K21.9 Gastro-esophageal reflux disease without esophagitis; H91.90 Unspecified hearing loss, unspecified ear; Z88.5 Allergy status to narcotic agent; Z88.8 Allergy status to other drugs, medicaments and biological substances; Z79.01 Long term (current) use of anticoagulants; Z79.899 Other long term (current) drug therapy; Z90.49 Acquired absence of other specified parts of digestive tract; Z98.41 Cataract extraction status, right eye; Z98.42 Cataract extraction status, left eye
CPT/HCPCS: 88305; 58558; J2250; J1100; J2405; J0690; J2001; J2704